=== PATIENT | female | born 1955 | race Caucasian/White ===

== ENCOUNTER 2016-05-24 14:26 | Inpatient (IN) | payer MEDICARE, MEDICAID ==
--- NOTE | 2016-05-24 15:05 | ED Physician Chart ---
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 THE PATIENT IS MENTALLY UNABLE TO COMMUNICATE AND NOT RESPONSIVE TO VERBAL STIMULUS. THIS PATIENT HAS A HISTORY OF SEIZURES, HYPOTHYROIDISM, HYPERTENSION AND COPD. Allergies:: Allergies Allergy/AdvReac Type Severity Reaction Status Date / Time aspirin Allergy Verified 12/14/15 17:05 citalopram Allergy Verified 12/14/15 17:06 codeine Allergy Verified 12/14/15 17:09 dimenhydrinate Allergy Verified 12/14/15 17:09 diphenhydramine HCl Allergy Verified 12/14/15 17:06 [From Benadryl] lorazepam Allergy Verified 12/14/15 17:10 pioglitazone Allergy Verified 12/14/15 17:10 tomato Allergy Verified 12/14/15 17:11 venlafaxine Allergy Verified 12/14/15 17:11 Historian:: EMS, Medical Records Review:: Nurse's Note Reviewed Review of Systems - Review of Systems General/Constitutional: No fever, No chills, No weight loss, No weakness, No diaphoresis, No edema, No loss of appetite, Other (THIS PATIENT CANNOT GIVE A REVIEW OF SYSTEMS) Skin: No skin lesions, No rash, No bruising Head: No headache, No light-headedness Eyes: No loss of vision, No pain, No diplopia ENT: No earache, No nasal drainage, No sore throat, No tinnitus Neck: No neck pain, No swelling, No thyromegaly, No stiffness, No mass noted Cardio Vascular: No chest pain, No palpitations, No PND, No orthopnea, No edema Pulmonary: No SOB, No cough, No sputum, No wheezing GI: No nausea, No vomiting, No diarrhea, No pain, No melena, No hematochezia, No constipation, No hematemesis G/U: No dysuria, No frequency, No hematuria Musculoskeletal: No bone or joint pain, No back pain, No muscle pain Endocrine: No polyuria, No polydipsia Psychiatric: No prior psych history, No depression, No anxiety, No suicidal ideation Hematopoietic: No bruising, No lymphadenopathy Allergic/Immuno: No urticaria, No angioedema Neurological: No syncope, No focal symptoms, No weakness, No paresthesia, No headache, No seizure, No dizziness, No confusion, No vertigo Past Medical History - Past Medical History Obtainable: Yes Past Medical History: HTN, Asthma/COPD, Seizures, Thyroid disorder, Dementia, Other (DEPRESSIVE DISORDER) Family History: None Social History: Non Smoker, No Alcohol, No Drug Use Family Medical History - Family Member Mother History Unknown: Yes Physical Exam - Physical Examination General/Constitutional: Awake, Well-developed, well-nourished, Alert, No distress, GCS 15, Non-toxic appearing, Ambulatory Other Gen/Cons comments:: THE PATIENT CANNOT COMMUNICATE AND IS UNRESPONSIVE TO ANY VERBAL STIMULI. Head: Atraumatic Eyes: Lids, conjuctiva normal, PERRL, EOMI Skin: Nl inspection, No rash, No skin lesions, No ecchymosis, Well hydrated, No lymphadenopathy ENMT: External ears, nose nl, Nasal exam nl, Lips, teeth, gums nl Neck: Nontender, Full ROM w/o pain, No JVD, No nuchal rigidity, No bruit, No mass, No stridor Respiratory: Nl effort/Exclusion, Clear to Auscultation, No Wheeze/Rhonchi/Rales Cardio Vascular: RRR, No murmur, gallop, rubs, NL S1 S2 GI: No tenderness/rebounding/guarding, No organomegaly, No hernia, Normal BS's, Nondistended, No mass/bruits, No McBurney tenderness : No CVA tenderness Extremities: No tenderness or effusion, Full ROM, normal strength in all extremities, No edema, Normal digits & nails Neuro/Psych: Alert/oriented, DTR's symmetric, Normal sensory exam, Normal motor strength, Judgement/insight normal, Mood normal, Normal gait, No focal deficits Misc: normal gait, Normal back, No paraspinal tenderness ED Septic Shock - . Is Septic Shock (SBP<90, OR Lactate>4 mmol\L) present?: No Reassessment (Disposition) - Reassessment Reassessment Condition:: Unchanged - Diagnosis Diagnosis:: UNCONTROLLED SEIZURES STATUS POST FRONTAL LOBE REMOVAL - Patient Disposition Discharge/Transfer:: Acute Care w/in this hosp Admitting Medical Physician:: Burton Alaniz Condition at Disposition:: Unchanged
--- NOTE | 2016-05-24 15:12 | Diagnostic Imaging Report ---
CHEST X-RAY: AP view INDICATION: Dizziness COMPARISON: None FINDINGS: Suboptimal lung volumes are seen with chronic changes. No focal consolidation or pleural effusions. Cardiomegaly is noted. Postsurgical changes of the cervicothoracic spine are noted. Degenerative changes of the spine are noted. IMPRESSION: Suboptimal lung volumes with chronic changes. No focal consolidation identified. Cardiomegaly.
[2016-05-24 15:18] LABS: % BASOPHILS 0.4 % (0.0-2.0); % EOSINOPHILS 0.1 % (0.0-5.0); % LYMPHOCYTES 13.9 % (20.0-50.0); % MONOCYTES 9.5 % (2.0-10.0); % NEUTROPHILS 76.1 % (40.0-80.0); HEMATOCRIT 40.1 % (35.0-45.0); HEMOGLOBIN 13.6 gm/dL (11.7-15.5); MEAN CELL VOLUME 95.8 fl (81-100); MEAN CORPUSCULAR HEMOGLOBIN 32.4 pg (27.0-31.0); MEAN CORPUSCULAR HGB CONC 33.8 pg (28.0-36.0); MEAN PLATELET VOLUME 7.7 fl; NEUTROPHILE ABSOLUTE 6.3 Th/cmm (1.8-8.0); PLATELET COUNT 292 Th/cmm (150-400); RED BLOOD COUNT 4.19 Mil/cmm (3.80-5.10); RED CELL DISTRIBUTION WIDTH 12.9 % (11.5-20.0); WHITE BLOOD COUNT 8.3 Th/cmm (4.8-10.8)
[2016-05-24 15:29] LABS: INR 1.03 (0.5-1.4); PROTHROMBIN TIME (TEST) 10.2 SECONDS (9.5-11.5)
[2016-05-24 15:33] LABS: ALKALINE PHOSPHATASE 119 U/L (34-104); ANION GAP 8.5 (7.0-16.0); BILIRUBIN,TOTAL 0.2 mg/dL (0.3-1.0); BUN - UREA NITROGEN 22 mg/dL (7-25); BUN/CREATININE RATIO 24.4; CALCIUM SERUM 9.3 mg/dL (8.6-10.3); CARBON DIOXIDE 26.7 mEq/L (21.0-31.0); CHLORIDE 104 mEq/L (98-107); CREATININE - SERUM 0.9 mg/dL (0.6-1.2); GLUCOSE 99 mg/dL (70-105); POTASSIUM SERUM 4.2 mEq/L (3.5-5.1); SGOT 18 U/L (13-39); SGPT/ALT 26 U/L (7-52); SODIUM SERUM 135 mEq/L (136-145)
--- NOTE | 2016-05-24 15:49 | Diagnostic Imaging Report ---
Head CT without intravenous contrast Indication: Dizziness Comparison: Prior head CT on 12/15/2015 Technique: Axial images were obtained from the vertex to the skull base without IV contrast. Coronal reconstructions were made. Total DLP: 673, CTDI36.6 FINDINGS: Images of the brain obtained without contrast demonstrate no evidence of an acute hemorrhage. There is evidence of prior right frontal craniotomy. Right frontal lobe encephalomalacia is again noted. 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 Left frontal lobe encephalomalacia is also seen with mild ex vacuo dilatation of the frontal horn of the left lateral ventricle. Nonspecific calcifications are again seen adjacent to the posterior horn of the left lateral ventricle. No mass effect or midline shift. No evidence of a skull fracture or focal soft tissue swelling. IMPRESSION: No evidence of an acute intracranial hemorrhage Redemonstration of postsurgical changes of the right frontal lobe. Bifrontal lobe encephalomalacia is also noted, right greater than left. Unchanged calcifications adjacent to the posterior horn of the left lateral ventricle. If indicated short-term follow-up MRI may also be obtained.
[2016-05-24] MEDS ORDERED: Albuterol Nebulizer 2.5mg/3mL IH PRN (19:33)
[2016-05-24] MEDS ORDERED: guaiFENesin 200 MG/10 ML UDC PO PRN (19:33)
[2016-05-24] MEDS: Atorvastatin Calcium 10 MG TAB PO SCH (22:41)
[2016-05-24] MEDS: D5-0.9%NS 1,000 ML IV SCH (23:13)
[2016-05-25] MEDS: Levothyroxine 0.088 Mg Tab PO SCH (07:12)
[2016-05-25] MEDS: Fish Oil 1,000 MG SGL PO SCH (09:37)
[2016-05-25] MEDS: Calcium Carb/Vit D 500 mg/200 U Tab PO SCH (09:37)
[2016-05-25] MEDS: Multivitamin Tab PO SCH (09:37)
--- NOTE | 2016-05-25 16:59 | Internal Medicine Prog Note ---
Internal Medicine Subjective - Subjective Service Date: 05/25/16 ([facility] dictated [id number] ) Internal Medicine Objective - Results Result Diagrams: 05/24/16 15:05 05/24/16 15:05 Recent Labs: Laboratory Last Values WBC 8.3 Th/cmm (4.8-10.8) 05/24/16 15:05 RBC 4.19 Mil/cmm (3.80-5.10) 05/24/16 15:05 Hgb 13.6 gm/dL (11.7-15.5) 05/24/16 15:05 Hct 40.1 % (35.0-45.0) 05/24/16 15:05 MCV 95.8 fl (81-100) 05/24/16 15:05 MCH 32.4 pg (27.0-31.0) H 05/24/16 15:05 MCHC Differential 33.8 pg (28.0-36.0) 05/24/16 15:05 RDW 12.9 % (11.5-20.0) 05/24/16 15:05 Plt Count 292 Th/cmm (150-400) 05/24/16 15:05 MPV 7.7 fl 05/24/16 15:05 Neutrophils % 76.1 % (40.0-80.0) 05/24/16 15:05 Lymphocytes % 13.9 % (20.0-50.0) L 05/24/16 15:05 Monocytes % 9.5 % (2.0-10.0) 05/24/16 15:05 Eosinophils % 0.1 % (0.0-5.0) 05/24/16 15:05 Basophils % 0.4 % (0.0-2.0) 05/24/16 15:05 PT 10.2 SECONDS (9.5-11.5) 05/24/16 15:05 INR 1.03 (0.5-1.4) 05/24/16 15:05 Sodium 135 mEq/L (136-145) L 05/24/16 15:05 Potassium 4.2 mEq/L (3.5-5.1) 05/24/16 15:05 Chloride 104 mEq/L (98-107) 05/24/16 15:05 Carbon Dioxide 26.7 mEq/L (21.0-31.0) 05/24/16 15:05 Anion Gap 8.5 (7.0-16.0) 05/24/16 15:05 BUN 22 mg/dL (7-25) 05/24/16 15:05 Creatinine 0.9 mg/dL (0.6-1.2) 05/24/16 15:05 Est GFR ( Amer) > 60.0 ml/min 05/24/16 15:05 Est GFR (Non-Af Amer) > 60.0 ml/min 05/24/16 15:05 BUN/Creatinine Ratio 24.4 05/24/16 15:05 Glucose 99 mg/dL (70-105) 05/24/16 15:05 Calcium 9.3 mg/dL (8.6-10.3) 05/24/16 15:05 Total Bilirubin 0.2 mg/dL (0.3-1.0) L 05/24/16 15:05 AST 18 U/L (13-39) 05/24/16 15:05 ALT 26 U/L (7-52) 05/24/16 15:05 Alkaline Phosphatase 119 U/L (34-104) H 05/24/16 15:05 Troponin I < 0.01 ng/mL (0.01-0.05) L 05/24/16 15:05 Total Protein 7.5 gm/dL (6.0-8.3) 05/24/16 15:05 Albumin 3.7 gm/dL (3.7-5.3) 05/24/16 15:05 Globulin 3.8 gm/dL 05/24/16 15:05 Albumin/Globulin Ratio 1.0 (1.0-1.8) 05/24/16 15:05 TSH 0.84 uIU/ml (0.34-5.60) 05/24/16 15:05 Phenytoin 8.5 ug/ml (10.0-20.0) L 05/24/16 15:05 Carbamazepine 9.6 ug/ml (4.0-12.0) 05/24/16 15:05 - Physical Exam Vitals and I&O: Vital Signs Temp 98.2 F 05/25/16 16:00 Pulse 71 05/25/16 16:00 Resp 18 05/25/16 16:00 BP 127/72 05/25/16 16:00 Pulse Ox 97 05/25/16 16:00 Active Medications: Current Medications Acetaminophen (Tylenol) 650 mg PO Q4HR PRN PRN Reason: Pain or Fever >101 Stop: 07/23/16 19:32 Albuterol Sulfate (Albuterol 2.5mg/3ml Neb Ud) 2.5 mg IH Q2HR PRN PRN Reason: Shortness of Breath or Wheeze Stop: 07/23/16 19:32 Atorvastatin Calcium (Lipitor) 20 mg PO HS [facility] Stop: 07/23/16 20:59 Last Admin: 05/24/16 22:41 Dose: 20 mg Calcium/Vitamin D (Oscal W/Vitamin D) 1 tab PO DAILY [facility] Stop: 07/24/16 08:59 Last Admin: 05/25/16 09:37 Dose: 1 tab Carbamazepine (Tegretol) 450 mg PO BID [facility] PRN Reason: Protocol Stop: 07/24/16 08:59 Last Admin: 05/25/16 16:49 Dose: 450 mg Cholecalciferol (Vitamin D3) 1,000 iu PO DAILY [facility] Stop: 07/24/16 08:59 Last Admin: 05/25/16 09:37 Dose: 1,000 iu Donepezil HCl (Aricept) 10 mg PO HS [facility] Stop: 07/23/16 20:59 Last Admin: 05/24/16 22:41 Dose: 10 mg Famotidine (Pepcid) 20 mg PO DAILY [facility] Stop: 07/24/16 08:59 Last Admin: 05/25/16 09:37 Dose: 20 mg Fish Oil ([place] 3) 1,000 mg PO DAILY [facility] Stop: 07/24/16 08:59 Last Admin: 05/25/16 09:37 Dose: 1,000 mg Guaifenesin (Robitussin) 200 mg PO Q4HR PRN PRN Reason: Cough or Congestion Stop: 07/23/16 19:32 Heparin Sodium (Porcine) (Heparin) 5,000 units SUBQ Q12HR [facility] Stop: 07/23/16 20:59 Last Admin: 05/25/16 09:37 Dose: 5,000 units Dextrose/Sodium Chloride (D5-0.9%Ns) 1,000 mls @ 80 mls/hr IV .[id number] [facility] Stop: 07/23/16 19:44 Last Admin: 05/24/16 23:13 Dose: 80 mls/hr Levothyroxine Sodium (Synthroid) 0.088 mg PO QDAC [facility] Stop: 07/24/16 07:29 Last Admin: 05/25/16 07:12 Dose: 0.088 mg Lorazepam (Ativan) 1 mg IV Q4HR PRN; Protocol PRN Reason: Seizure Stop: 07/23/16 19:32 Meclizine HCl (Antivert) 25 mg PO DAILY PRN PRN Reason: Nausea / Vomiting Stop: 07/23/16 19:32 Multivitamins/Vitamin C (Theragran) 1 tab PO DAILY [facility] Stop: 07/24/16 08:59 Last Admin: 05/25/16 09:37 Dose: 1 tab Ondansetron HCl (Zofran) 4 mg IV Q8H PRN PRN Reason: Nausea / Vomiting Stop: 07/23/16 19:32 Phenytoin (Dilantin) 100 mg PO TID [facility] Stop: 07/23/16 20:59 Last Admin: 05/25/16 14:10 Dose: 100 mg Internal Medicine Assmt/Plan - Assessment Assessment: UNCONTROLLED SEIZURES ALOC HTN GERD MAJOR DEPRESSION SCHIZOAFFECTIVE DISORDER
--- NOTE | 2016-05-25 20:58 | History & Physical ---
CHIEF COMPLAINT: Dizziness and ALOC. HISTORY OF PRESENT ILLNESS: This is a 61-year-old female who is a resident of [facility] / [facility] who was brought here to [facility] due to altered mental status. Per nursing staff, the patient was unable to communicate. The patient started to develop dizziness. PAST MEDICAL HISTORY: Hypertension, GERD, arthritis, anemia, major depression, and schizoaffective disorder. FAMILY HISTORY: Noncontributory. SOCIAL HISTORY: The patient resides at a fci, requiring 24-hour nursing care. PAST SURGICAL HISTORY: Unknown. PSYCHIATRIC HISTORY: Schizophrenia and major depressive disorder. REVIEW OF SYSTEMS: Unable to obtain due to the patient's mental status. PHYSICAL EXAMINATION: VITAL SIGNS: Temperature 98.2, heart rate 71, blood pressure 127/72, respirations 18, and O2 of 97%. HEENT: Head is normocephalic and atraumatic. NECK: Supple. No mass. LUNGS: Clear bilaterally upon auscultation. CARDIOVASCULAR: Regular rate and rhythm. No murmurs or gallops. SKIN: Intact, warm to touch. ABDOMEN: Soft, nontender, and nondistended. Positive bowel sounds in all 4 quadrants. LABORATORY DATA: WBC 8.3, H and H 13.6 and 40.1, platelets of 292,000. Sodium 135, potassium 4.2, chloride 104, BUN of 22, and creatinine 0.9. Troponin of 0.01 and phenytoin of 8.5. DIAGNOSIS: The patient had a CT of the head done and the impression is no evidence of any acute intracranial hemorrhage. The patient also had a chest x-ray done and the impression is suboptimal lung volumes with chronic changes, no focal consolidation. ASSESSMENT: Uncontrolled seizures, altered level of consciousness, hypertension, gastroesophageal reflux disease, and major depressive disorder. PLAN: The patient to be admitted to the med/surg unit. Seizure precautions will be initiated. The patient will have a consultation with Dr. Soto. The patient will be kept on IV fluids for hydration. We will continue to monitor the patient. JOB# [id number]
[2016-05-25] MEDS: Atorvastatin Calcium 10 MG TAB PO SCH (21:29)
[2016-05-26] MEDS: D5-0.9%NS 1,000 ML IV SCH ×2 (05:27→21:54)
[2016-05-26] MEDS: Levothyroxine 0.088 Mg Tab PO SCH (06:31)
[2016-05-26 07:23] LABS: % BASOPHILS 0.1 % (0.0-2.0); % EOSINOPHILS 0.2 % (0.0-5.0); % LYMPHOCYTES 22.9 % (20.0-50.0); % MONOCYTES 11.1 % (2.0-10.0); % NEUTROPHILS 65.7 % (40.0-80.0); HEMATOCRIT 37.9 % (35.0-45.0); HEMOGLOBIN 12.8 gm/dL (11.7-15.5); MEAN CELL VOLUME 95.2 fl (81-100); MEAN CORPUSCULAR HEMOGLOBIN 32.2 pg (27.0-31.0); MEAN CORPUSCULAR HGB CONC 33.8 pg (28.0-36.0); MEAN PLATELET VOLUME 8.3 fl; NEUTROPHILE ABSOLUTE 4.7 Th/cmm (1.8-8.0); PLATELET COUNT 265 Th/cmm (150-400); RED BLOOD COUNT 3.98 Mil/cmm (3.80-5.10); RED CELL DISTRIBUTION WIDTH 12.7 % (11.5-20.0); WHITE BLOOD COUNT 7.1 Th/cmm (4.8-10.8)
[2016-05-26 07:48] LABS: ANION GAP 7.8 (7.0-16.0); BUN - UREA NITROGEN 15 mg/dL (7-25); CALCIUM SERUM 9.2 mg/dL (8.6-10.3); CARBON DIOXIDE 27.8 mEq/L (21.0-31.0); CHLORIDE 104 mEq/L (98-107); GLUCOSE 103 mg/dL (70-105); POTASSIUM SERUM 3.6 mEq/L (3.5-5.1); SODIUM SERUM 136 mEq/L (136-145)
[2016-05-26] MEDS: Calcium Carb/Vit D 500 mg/200 U Tab PO SCH (10:07)
[2016-05-26] MEDS: Fish Oil 1,000 MG SGL PO SCH (10:07)
[2016-05-26] MEDS: Multivitamin Tab PO SCH (10:08)
--- NOTE | 2016-05-26 13:33 | Consultation ---
HISTORY OF PRESENT ILLNESS: The patient is a 61-year-old in ____ [facility]. The patient brought in because of dizziness. Somewhat better now. She was also somewhat lethargic. She was awake, but she does not talk much. She will smile. She follows instructions for me. PAST MEDICAL HISTORY: Depression, hypertension, schizoaffective disorder. She has had previous intracranial scarring with postsurgical changes in the right frontal lobe, right and left encephalomalacia, right greater than left. Also, ____ basal ganglia in left frontal lobe. No acute process noted on the CAT scan. The patient moving all extremities though somewhat less on the left. History of seizures, the patient on medications. SOCIAL HISTORY: In a resident facility. Does not smoke or drink. REVIEW OF SYSTEMS: As above, otherwise, 12-point negative. MEDICATIONS: As per reconciliation. PHYSICAL EXAMINATION: VITAL SIGNS: Temperature 98.6, blood pressure 130/76, pulse is 74. NECK: Supple. No bruits. HEART: Sounds S1, S2. LUNGS: Clear. ABDOMEN: Soft. NEUROLOGIC: The patient is awake. She is sitting up eating, limited ____. She will smile. When I asked her name, she does not give it, but she will just smile at me. She followed instructions. When I asked to open and close her eyes and when I asked her to lift her arms up, she did that for me. Pupils react to light. Difficult to ____ field defect, but she will look to the right and left. Moves both arms. I really did not see marked weakness on one side or other. Legs again, she will withdraw both of them. Reflexes about 1+. INVESTIGATIONS: CT scan of head as above with previous scarring. LABORATORY DATA: WBC is 7.1, hemoglobin 12.8, platelets normal. Dilantin level 8.5. Albumin 3.7. Tegretol level 9.6. IMPRESSION: 1. Dizziness. 2. Encephalopathy, better. 3. History of previous intracranial scarring. 4. History of seizure disorder, but no seizures witnessed here. 5. Schizoaffective disorder. 6. Hypertension. 7. Depression. 8. Arthritis. 9. Gastroesophageal reflux disease. JOB# [id number]
--- NOTE | 2016-05-26 16:58 | Internal Medicine Prog Note ---
Internal Medicine Subjective - Subjective Service Date: 05/26/16 Patient seen and examined:: with staff Patient is:: awake Per staff patient is:: no adverse event Internal Medicine Objective - Results Result Diagrams: 05/26/16 06:22 05/26/16 06:22 Recent Labs: Laboratory Last Values WBC 7.1 Th/cmm (4.8-10.8) 05/26/16 06:22 RBC 3.98 Mil/cmm (3.80-5.10) 05/26/16 06:22 Hgb 12.8 gm/dL (11.7-15.5) 05/26/16 06:22 Hct 37.9 % (35.0-45.0) 05/26/16 06:22 MCV 95.2 fl (81-100) 05/26/16 06:22 MCH 32.2 pg (27.0-31.0) H 05/26/16 06:22 MCHC Differential 33.8 pg (28.0-36.0) 05/26/16 06:22 RDW 12.7 % (11.5-20.0) 05/26/16 06:22 Plt Count 265 Th/cmm (150-400) 05/26/16 06:22 MPV 8.3 fl 05/26/16 06:22 Neutrophils % 65.7 % (40.0-80.0) 05/26/16 06:22 Lymphocytes % 22.9 % (20.0-50.0) 05/26/16 06:22 Monocytes % 11.1 % (2.0-10.0) H 05/26/16 06:22 Eosinophils % 0.2 % (0.0-5.0) 05/26/16 06:22 Basophils % 0.1 % (0.0-2.0) 05/26/16 06:22 PT 10.2 SECONDS (9.5-11.5) 05/24/16 15:05 INR 1.03 (0.5-1.4) 05/24/16 15:05 Sodium 136 mEq/L (136-145) 05/26/16 06:22 Potassium 3.6 mEq/L (3.5-5.1) 05/26/16 06:22 Chloride 104 mEq/L (98-107) 05/26/16 06:22 Carbon Dioxide 27.8 mEq/L (21.0-31.0) 05/26/16 06:22 Anion Gap 7.8 (7.0-16.0) 05/26/16 06:22 BUN 15 mg/dL (7-25) 05/26/16 06:22 Creatinine 1.0 mg/dL (0.6-1.2) 05/26/16 06:22 Est GFR ( Amer) > 60.0 ml/min 05/26/16 06:22 Est GFR (Non-Af Amer) 59.9 ml/min 05/26/16 06:22 BUN/Creatinine Ratio 15.0 05/26/16 06:22 Glucose 103 mg/dL (70-105) 05/26/16 06:22 Calcium 9.2 mg/dL (8.6-10.3) 05/26/16 06:22 Total Bilirubin 0.2 mg/dL (0.3-1.0) L 05/24/16 15:05 AST 18 U/L (13-39) 05/24/16 15:05 ALT 26 U/L (7-52) 05/24/16 15:05 Alkaline Phosphatase 119 U/L (34-104) H 05/24/16 15:05 Troponin I < 0.01 ng/mL (0.01-0.05) L 05/24/16 15:05 Total Protein 7.5 gm/dL (6.0-8.3) 05/24/16 15:05 Albumin 3.7 gm/dL (3.7-5.3) 05/24/16 15:05 Globulin 3.8 gm/dL 05/24/16 15:05 Albumin/Globulin Ratio 1.0 (1.0-1.8) 05/24/16 15:05 TSH 0.84 uIU/ml (0.34-5.60) 05/24/16 15:05 Phenytoin 8.5 ug/ml (10.0-20.0) L 05/26/16 06:22 Carbamazepine 9.6 ug/ml (4.0-12.0) 05/24/16 15:05 - Physical Exam Vitals and I&O: Vital Signs Temp 97.9 F 05/26/16 05:00 Pulse 93 05/26/16 08:15 Resp 18 05/26/16 08:15 BP 149/69 05/26/16 05:00 Pulse Ox 97 05/26/16 08:15 Intake & Output 05/25/16 05/26/16 05/26/16 18:59 06:59 18:59 Intake Total 1000 400 Balance 1000 400 Intake: Intake, IV Amount 1000 D5-0.9%Ns 1,000 ml @ 80 1000 mls/hr IV .[id number] [facility] Rx #:[id number] Oral 400 Active Medications: Current Medications Acetaminophen (Tylenol) 650 mg PO Q4HR PRN PRN Reason: Pain or Fever >101 Stop: 07/23/16 19:32 Albuterol Sulfate (Albuterol 2.5mg/3ml Neb Ud) 2.5 mg IH Q2HR PRN PRN Reason: Shortness of Breath or Wheeze Stop: 07/23/16 19:32 Atorvastatin Calcium (Lipitor) 20 mg PO HS [facility] Stop: 07/23/16 20:59 Last Admin: 05/25/16 21:29 Dose: 20 mg Calcium/Vitamin D (Oscal W/Vitamin D) 1 tab PO DAILY [facility] Stop: 07/24/16 08:59 Last Admin: 05/26/16 10:07 Dose: 1 tab Carbamazepine (Tegretol) 450 mg PO BID [facility] PRN Reason: Protocol Stop: 07/24/16 08:59 Last Admin: 05/26/16 10:08 Dose: 450 mg Cholecalciferol (Vitamin D3) 1,000 iu PO DAILY [facility] Stop: 07/24/16 08:59 Last Admin: 05/26/16 10:09 Dose: 1,000 iu Donepezil HCl (Aricept) 10 mg PO HS [facility] Stop: 07/23/16 20:59 Last Admin: 05/25/16 21:29 Dose: 10 mg Famotidine (Pepcid) 20 mg PO DAILY [facility] Stop: 07/24/16 08:59 Last Admin: 05/26/16 10:07 Dose: 20 mg Fish Oil ([place] 3) 1,000 mg PO DAILY [facility] Stop: 07/24/16 08:59 Last Admin: 05/26/16 10:07 Dose: 1,000 mg Guaifenesin (Robitussin) 200 mg PO Q4HR PRN PRN Reason: Cough or Congestion Stop: 07/23/16 19:32 Heparin Sodium (Porcine) (Heparin) 5,000 units SUBQ Q12HR [facility] Stop: 07/23/16 20:59 Last Admin: 05/26/16 10:08 Dose: 5,000 units Dextrose/Sodium Chloride (D5-0.9%Ns) 1,000 mls @ 80 mls/hr IV .[id number] [facility] Stop: 07/23/16 19:44 Last Admin: 05/26/16 05:27 Dose: 80 mls/hr Levothyroxine Sodium (Synthroid) 0.088 mg PO QDAC [facility] Stop: 07/24/16 07:29 Last Admin: 05/26/16 06:31 Dose: 0.088 mg Lorazepam (Ativan) 1 mg IV Q4HR PRN; Protocol PRN Reason: Seizure Stop: 07/23/16 19:32 Meclizine HCl (Antivert) 25 mg PO DAILY PRN PRN Reason: Nausea / Vomiting Stop: 07/23/16 19:32 Multivitamins/Vitamin C (Theragran) 1 tab PO DAILY [facility] Stop: 07/24/16 08:59 Last Admin: 05/26/16 10:08 Dose: 1 tab Ondansetron HCl (Zofran) 4 mg IV Q8H PRN PRN Reason: Nausea / Vomiting Stop: 07/23/16 19:32 Phenytoin (Dilantin) 100 mg PO TID [facility] Stop: 07/23/16 20:59 Last Admin: 05/26/16 14:59 Dose: 100 mg General: alert HEENT: NC/AT, PERRLA Neck: Supple Lungs: CTAB Cardiovascular: RRR, Normal S1, Normal S2, without murmur Abdomen: soft non-tender Internal Medicine Assmt/Plan - Assessment Assessment: UNCONTROLLED SEIZURES ALOC HTN GERD MAJOR DEPRESSION SCHIZOAFFECTIVE DISORDER - Plan Plan: seizure precautions cbc/bmp in am ivf for hydration
[2016-05-26] MEDS: Atorvastatin Calcium 10 MG TAB PO SCH (21:46)
[2016-05-26] MEDS ORDERED: PHENYTOIN IV ONE (23:00)
[2016-05-26] MEDS ORDERED: SODIUM CHLORIDE 0.9% IV ONE (23:00)
[2016-05-27] MEDS ORDERED: Phenytoin 50 mg/mL 2 mL Vial ONE (00:13)
[2016-05-27] MEDS: Levothyroxine 0.088 Mg Tab PO SCH (06:43)
[2016-05-27 07:23] LABS: % BASOPHILS 0.1 % (0.0-2.0); % EOSINOPHILS 0.1 % (0.0-5.0); % LYMPHOCYTES 20.1 % (20.0-50.0); % MONOCYTES 10.1 % (2.0-10.0); % NEUTROPHILS 69.6 % (40.0-80.0); HEMOGLOBIN 12.9 gm/dL (11.7-15.5); MEAN CELL VOLUME 94.9 fl (81-100); MEAN CORPUSCULAR HEMOGLOBIN 32.9 pg (27.0-31.0); MEAN CORPUSCULAR HGB CONC 34.7 pg (28.0-36.0); MEAN PLATELET VOLUME 8.3 fl; NEUTROPHILE ABSOLUTE 5.5 Th/cmm (1.8-8.0); PLATELET COUNT 268 Th/cmm (150-400); RED CELL DISTRIBUTION WIDTH 13.2 % (11.5-20.0); WHITE BLOOD COUNT 7.9 Th/cmm (4.8-10.8)
[2016-05-27 07:34] LABS: ANION GAP 7.3 (7.0-16.0); BUN - UREA NITROGEN 14 mg/dL (7-25); BUN/CREATININE RATIO 15.6; CALCIUM SERUM 9.4 mg/dL (8.6-10.3); CARBON DIOXIDE 28.2 mEq/L (21.0-31.0); CHLORIDE 105 mEq/L (98-107); CREATININE - SERUM 0.9 mg/dL (0.6-1.2); GLUCOSE 92 mg/dL (70-105); POTASSIUM SERUM 3.5 mEq/L (3.5-5.1); SODIUM SERUM 137 mEq/L (136-145)
[2016-05-27] MEDS: Fish Oil 1,000 MG SGL PO SCH (09:08)
[2016-05-27] MEDS: Calcium Carb/Vit D 500 mg/200 U Tab PO SCH (09:08)
[2016-05-27] MEDS: Multivitamin Tab PO SCH (09:08)
--- NOTE | 2016-06-26 02:53 | Discharge Summary ---
Dictated for Dr. Burton Alaniz. FINAL DIAGNOSES: Uncontrolled seizures, altered level of consciousness, hypertension, gastroesophageal reflux disease, and major depressive disorder. HISTORY OF PRESENT ILLNESS: This is a 61-year-old female, a resident of [facility] brought to [facility] due to altered mental status. PHYSICAL EXAMINATION: VITAL SIGNS: Stable. HEENT: Head is normocephalic and atraumatic. NECK: Supple. No mass. LUNGS: Clear. CARDIOVASCULAR: Regular rate and rhythm. No murmurs or gallops. ABDOMEN: Soft, nontender, and nondistended. HOSPITAL COURSE: During the hospital stay, the patient was admitted to the med/surg unit. The patient had a consultation with Dr. Soto. The patient had a CT of the head done and the impression was no evidence of acute intracranial hemorrhage. Also, a chest x-ray was obtained and it was negative. The patient later then stabilized and was stable for discharge. CONDITION UPON DISCHARGE: Fair. DISPOSITION: The patient is going to [facility]. JOB# [id number]
== END 2016-05-27 16:13 | disposition short-term general hospital (02) | DRG 100 ==
LOC: ER 14:26 → MSI 17:00
PROVIDERS: ADMIT Internal Medicine; ATTEND Internal Medicine
DX: R56.9 Unspecified convulsions (principal); G93.40 Encephalopathy, unspecified; I10 Essential (primary) hypertension; K21.9 Gastro-esophageal reflux disease without esophagitis; M19.90 Unspecified osteoarthritis, unspecified site; F32.9 Major depressive disorder, single episode, unspecified; F25.9 Schizoaffective disorder, unspecified; F03.90 Unspecified dementia, unspecified severity, without behavioral disturbance, psychotic disturbance, mood disturbance, and anxiety; J44.9 Chronic obstructive pulmonary disease, unspecified; D64.9 Anemia, unspecified; E03.9 Hypothyroidism, unspecified; Z88.5 Allergy status to narcotic agent; Z88.4 Allergy status to anesthetic agent; Z91.018 Allergy to other foods; Z98.890 Other specified postprocedural states
CPT/HCPCS: 36415-UA; 70450-TC; 71010-TC; 80048-TC; 80053-TC; 80156-TC; 80185-TC; 84443-TC; 84484-TC; 85025-TC; 85610-TC; 93005; 94760; J1165; J1644; J7030; J7042; Z7610

== ENCOUNTER 2016-05-27 16:13 | Inpatient (IN) | payer MEDICARE, MEDICAID ==
[2016-05-27] MEDS ORDERED: Maalox 30 mL Cup PO PRN (20:39)
[2016-05-27] MEDS ORDERED: Magnesium Hydroxide (MOM) 30 mL UDC PO PRN (20:39)
[2016-05-27] MEDS ORDERED: Albuterol Nebulizer 2.5mg/3mL HHN PRN (20:52)
[2016-05-27] MEDS ORDERED: guaiFENesin 200 MG/10 ML UDC PO PRN (21:07)
[2016-05-28 03:33] VITALS: BP 142/78
[2016-05-28] MEDS ORDERED: Levothyroxine 0.088 Mg Tab PO SCH (07:30)
[2016-05-28] MEDS: Multivitamin Tab PO SCH (09:00)
[2016-05-28] MEDS: carBAMazepine 200 mg/10 mL UDC PO SCH ×2 (09:50→16:56)
[2016-05-28] MEDS: Fish Oil 1,000 MG SGL PO SCH (09:50)
[2016-05-28] MEDS: Calcium Carb/Vit D 500 mg/200 U Tab PO SCH (09:50)
--- NOTE | 2016-05-28 19:32 | Internal Medicine Prog Note ---
Internal Medicine Subjective - Subjective Patient seen and examined:: with staff, chart reviewed Patient is:: awake, in bed, denies SOB Patient Complaints of:: congestion Per staff patient is:: no adverse event, noncompliant, confused Internal Medicine Objective - Physical Exam Vitals and I&O: Vital Signs Temp 98 F 05/28/16 15:19 Pulse 83 05/28/16 15:19 Resp 18 05/28/16 18:11 BP 130/70 05/28/16 15:19 Pulse Ox 96 05/28/16 15:19 Intake & Output 05/28/16 05/28/16 05/29/16 06:59 18:59 06:59 Intake Total 800 Balance 800 Intake: Oral 800 Other: # Voids 1 4 # Bowel Movements 0 0 Active Medications: Current Medications Acetaminophen (Tylenol) 650 mg PO Q4HR PRN PRN Reason: pain OR TEMP 100.3 F Stop: 07/26/16 20:38 Al Hydrox/Mg Hydrox/Simethicone (Maalox) 30 ml PO Q4HR PRN PRN Reason: GI DISTRESS Stop: 07/26/16 20:38 Albuterol Sulfate (Albuterol 2.5mg/3ml Neb Ud) 2.5 mg HHN Q2H PRN PRN Reason: Shortness of Breath Stop: 07/26/16 20:51 Atorvastatin Calcium (Lipitor) 20 mg PO HS [facility] PRN Reason: Protocol Stop: 07/27/16 20:59 Calcium/Vitamin D (Oscal W/Vitamin D) 1 tab PO DAILY [facility] Stop: 07/27/16 08:59 Last Admin: 05/28/16 09:50 Dose: 1 tab Carbamazepine (Tegretol) 450 mg PO BID [facility] PRN Reason: Protocol Stop: 07/27/16 08:59 Last Admin: 05/28/16 16:56 Dose: 450 mg Cholecalciferol (Vitamin D3) 1,000 iu PO DAILY [facility] Stop: 07/27/16 08:59 Last Admin: 05/28/16 09:50 Dose: 1,000 iu Donepezil HCl (Aricept) 10 mg PO HS [facility] Stop: 07/27/16 20:59 Famotidine (Pepcid) 20 mg PO DAILY [facility] Stop: 07/27/16 08:59 Last Admin: 05/28/16 09:50 Dose: 20 mg Fish Oil ([place] 3) 1,000 mg PO DAILY [facility] Stop: 07/27/16 08:59 Last Admin: 05/28/16 09:50 Dose: 1,000 mg Guaifenesin (Robitussin) 200 mg PO Q4HR PRN PRN Reason: Cough or Congestion Stop: 07/26/16 21:06 Levothyroxine Sodium (Synthroid) 0.088 mg PO QDAC [facility] Stop: 07/27/16 07:29 Last Admin: 05/28/16 06:39 Dose: 0.088 mg Meclizine HCl (Antivert) 25 mg PO DAILY PRN PRN Reason: nausea and vomiting Stop: 07/26/16 21:02 Multivitamins/Vitamin C (Theragran) 1 tab PO DAILY [facility] Stop: 07/27/16 08:59 Last Admin: 05/28/16 09:00 Dose: 1 tab Phenytoin (Dilantin) 100 mg PO TID [facility] Stop: 07/27/16 08:59 Last Admin: 05/28/16 13:16 Dose: 100 mg Risperidone (Risperdal) 0.5 mg PO HS [facility] PRN Reason: Protocol Stop: 07/27/16 20:59 Zolpidem Tartrate (Ambien) 5 mg PO HS PRN PRN Reason: Insomnia Stop: 07/26/16 21:20 General: lethargic HEENT: NC/AT, PERRLA Neck: Supple, No JVD Lungs: CTAB Cardiovascular: RRR, Normal S1, Normal S2 Abdomen: soft non-tender, globular Extremities: excoriation, contracture Neurological: no change Internal Medicine Assmt/Plan - Assessment Assessment: SEIZURES d\o ALOC HTN GERD MAJOR DEPRESSION SCHIZOAFFECTIVE DISORDER obesity - Plan Plan: cont on sz precaution cont on aeds aspiration precaution cpm dw rn
[2016-05-28] MEDS: Atorvastatin Calcium 10 MG TAB PO SCH (20:59)
--- NOTE | 2016-05-29 01:56 | Psychosocial Evaluation ---
INITIAL PSYCHIATRIC EVALUATION CHIEF COMPLAINT: "I'm fine." HISTORY OF PRESENT ILLNESS: The patient is a 61-year-old female with chronic history of mental illness, has been more confused, disorganized, keeping to herself, at times resisting care, refusing medications. The patient denied feeling depressed. She is not sure of what is going on and she is oblivious to her surrounding. The patient appears to be confused and irritable and appears to be very paranoid. PAST PSYCHIATRIC HISTORY: Multiple psychiatric hospitalizations, history of schizoaffective disorder, and dementia. PAST MEDICAL HISTORY: As per H and P and as per Dr. Alaniz. PSYCHOSOCIAL HISTORY: The patient resides at [facility] as she requires complete care. MENTAL STATUS EXAMINATION: The patient was in bed, made fair eye contact. Her speech is short sentences, minimal. Fund of information is poor. Thought process is fragmented. The patient is internally preoccupied. The patient appears to be paranoid and suspicious. The patient is oriented to person, not oriented to time or place. PATIENT'S STRENGTH: The patient is passively accepting treatment at this time. PATIENT'S WEAKNESS: Lack of insight. ASSESSMENT: Schizoaffective disorder in psychotic phase, dementia, Alzheimer type. Medical, as per H and P. We will admit the patient for hospitalization. We will start the patient in group therapy and assess . ESTIMATED LENGTH OF STAY: 7-10 days. CRITERIA FOR DISCHARGE: Improved condition, less confusion, no agitation, better compliance with treatment and safe disposition, outpatient treatment plan. [facility]# [id number]
[2016-05-29] MEDS: Calcium Carb/Vit D 500 mg/200 U Tab PO SCH (10:20)
[2016-05-29] MEDS: carBAMazepine 200 mg/10 mL UDC PO SCH ×2 (10:21→17:35)
[2016-05-29] MEDS: Multivitamin Tab PO SCH (10:21)
[2016-05-29] MEDS: Fish Oil 1,000 MG SGL PO SCH (10:21)
--- NOTE | 2016-05-29 14:44 | Internal Medicine Prog Note ---
Internal Medicine Subjective - Subjective Service Date: 05/29/16 Patient seen and examined:: with staff Patient is:: awake Per staff patient is:: no adverse event Internal Medicine Objective - Physical Exam Vitals and I&O: Vital Signs Temp 98.0 F 05/29/16 06:26 Pulse 69 05/29/16 06:26 Resp 19 05/29/16 08:00 BP 157/98 05/29/16 06:26 Pulse Ox 98 05/29/16 06:26 Intake & Output 05/28/16 05/29/16 05/29/16 18:59 06:59 18:59 Intake Total 800 240 Balance 800 240 Intake: Oral 800 240 Other: # Voids 4 1 # Bowel Movements 0 Active Medications: Current Medications Acetaminophen (Tylenol) 650 mg PO Q4HR PRN PRN Reason: pain OR TEMP 100.3 F Stop: 07/26/16 20:38 Al Hydrox/Mg Hydrox/Simethicone (Maalox) 30 ml PO Q4HR PRN PRN Reason: GI DISTRESS Stop: 07/26/16 20:38 Albuterol Sulfate (Albuterol 2.5mg/3ml Neb Ud) 2.5 mg HHN Q2H PRN PRN Reason: Shortness of Breath Stop: 07/26/16 20:51 Atorvastatin Calcium (Lipitor) 20 mg PO HS [facility] PRN Reason: Protocol Stop: 07/27/16 20:59 Last Admin: 05/28/16 20:59 Dose: 20 mg Calcium/Vitamin D (Oscal W/Vitamin D) 1 tab PO DAILY [facility] Stop: 07/27/16 08:59 Last Admin: 05/29/16 10:20 Dose: 1 tab Carbamazepine (Tegretol) 450 mg PO BID [facility] PRN Reason: Protocol Stop: 07/27/16 08:59 Last Admin: 05/29/16 10:21 Dose: 450 mg Cholecalciferol (Vitamin D3) 1,000 iu PO DAILY [facility] Stop: 07/27/16 08:59 Last Admin: 05/29/16 10:21 Dose: 1,000 iu Donepezil HCl (Aricept) 10 mg PO HS [facility] Stop: 07/27/16 20:59 Last Admin: 05/28/16 20:59 Dose: 10 mg Famotidine (Pepcid) 20 mg PO DAILY [facility] Stop: 07/27/16 08:59 Last Admin: 05/29/16 10:20 Dose: 20 mg Fish Oil ([place] 3) 1,000 mg PO DAILY [facility] Stop: 07/27/16 08:59 Last Admin: 05/29/16 10:21 Dose: 1,000 mg Guaifenesin (Robitussin) 200 mg PO Q4HR PRN PRN Reason: Cough or Congestion Stop: 07/26/16 21:06 Levothyroxine Sodium (Synthroid) 0.088 mg PO QDAC [facility] Stop: 07/27/16 07:29 Last Admin: 05/28/16 06:39 Dose: 0.088 mg Meclizine HCl (Antivert) 25 mg PO DAILY PRN PRN Reason: nausea and vomiting Stop: 07/26/16 21:02 Multivitamins/Vitamin C (Theragran) 1 tab PO DAILY [facility] Stop: 07/27/16 08:59 Last Admin: 05/29/16 10:21 Dose: 1 tab Phenytoin (Dilantin) 100 mg PO TID [facility] Stop: 07/27/16 08:59 Last Admin: 05/29/16 14:06 Dose: 100 mg Risperidone (Risperdal) 0.5 mg PO HS [facility] PRN Reason: Protocol Stop: 07/27/16 20:59 Last Admin: 05/28/16 20:59 Dose: 0.5 mg Zolpidem Tartrate (Ambien) 5 mg PO HS PRN PRN Reason: Insomnia Stop: 07/26/16 21:20 General: alert HEENT: NC/AT, PERRLA Neck: Supple Lungs: CTAB Cardiovascular: RRR, Normal S1, Normal S2, without murmur Abdomen: soft non-tender Extremities: clear Internal Medicine Assmt/Plan - Assessment Assessment: SEIZURES d\o ALOC HTN GERD MAJOR DEPRESSION SCHIZOAFFECTIVE DISORDER obesity - Plan Plan: seizure precautions fall precautions cpm
[2016-05-29] MEDS ORDERED: Levothyroxine 0.088 Mg Tab PO SCH (19:34)
[2016-05-29] MEDS: Atorvastatin Calcium 10 MG TAB PO SCH (20:53)
--- NOTE | 2016-05-30 02:45 | Progress Notes ---
SUBJECTIVE: The patient was seen. Remains anxious, guarded, still paranoid, still suspicious, and internally preoccupied. Thought process is fragmented. Insight is poor and judgment is impaired. ASSESSMENT: The patient is still in psychotic phase. PLAN: We will continue hospitalization. Continue stabilization. Continue medication management. JOB# [id number]
[2016-05-30] MEDS: Levothyroxine 0.088 Mg Tab PO SCH ×2 (06:49→09:28)
[2016-05-30] MEDS: Fish Oil 1,000 MG SGL PO SCH (09:27)
[2016-05-30] MEDS: Calcium Carb/Vit D 500 mg/200 U Tab PO SCH (09:27)
[2016-05-30] MEDS: carBAMazepine 200 mg/10 mL UDC PO SCH ×2 (09:27→17:21)
[2016-05-30] MEDS: Multivitamin Tab PO SCH (09:27)
--- NOTE | 2016-05-30 16:11 | Internal Medicine Prog Note ---
Internal Medicine Subjective - Subjective Service Date: 05/30/16 Patient seen and examined:: with staff Patient is:: awake Per staff patient is:: no adverse event Internal Medicine Objective - Physical Exam Vitals and I&O: Vital Signs Temp 98.6 F 05/30/16 14:00 Pulse 80 05/30/16 14:00 Resp 20 05/30/16 14:00 BP 131/76 05/30/16 14:00 Pulse Ox 96 05/30/16 14:00 Intake & Output 05/29/16 05/30/16 05/30/16 18:59 06:59 18:59 Intake Total 960 Balance 960 Intake: Oral 960 Other: # Voids 3 # Bowel Movements 1 Active Medications: Current Medications Acetaminophen (Tylenol) 650 mg PO Q4HR PRN PRN Reason: pain OR TEMP 100.3 F Stop: 07/26/16 20:38 Al Hydrox/Mg Hydrox/Simethicone (Maalox) 30 ml PO Q4HR PRN PRN Reason: GI DISTRESS Stop: 07/26/16 20:38 Albuterol Sulfate (Albuterol 2.5mg/3ml Neb Ud) 2.5 mg HHN Q2H PRN PRN Reason: Shortness of Breath Stop: 07/26/16 20:51 Atorvastatin Calcium (Lipitor) 20 mg PO HS [facility] PRN Reason: Protocol Stop: 07/27/16 20:59 Last Admin: 05/29/16 20:53 Dose: 20 mg Calcium/Vitamin D (Oscal W/Vitamin D) 1 tab PO DAILY [facility] Stop: 07/27/16 08:59 Last Admin: 05/30/16 09:27 Dose: 1 tab Carbamazepine (Tegretol) 450 mg PO BID [facility] PRN Reason: Protocol Stop: 07/27/16 08:59 Last Admin: 05/30/16 09:27 Dose: 450 mg Cholecalciferol (Vitamin D3) 1,000 iu PO DAILY [facility] Stop: 07/27/16 08:59 Last Admin: 05/30/16 09:26 Dose: 1,000 iu Donepezil HCl (Aricept) 10 mg PO HS [facility] Stop: 07/27/16 20:59 Last Admin: 05/29/16 20:54 Dose: 10 mg Famotidine (Pepcid) 20 mg PO DAILY [facility] Stop: 07/27/16 08:59 Last Admin: 05/30/16 09:27 Dose: 20 mg Fish Oil ([place] 3) 1,000 mg PO DAILY [facility] Stop: 07/27/16 08:59 Last Admin: 05/30/16 09:27 Dose: 1,000 mg Guaifenesin (Robitussin) 200 mg PO Q4HR PRN PRN Reason: Cough or Congestion Stop: 07/26/16 21:06 Levothyroxine Sodium (Synthroid) 0.088 mg PO QDAC [facility] Stop: 07/30/16 06:29 Meclizine HCl (Antivert) 25 mg PO DAILY PRN PRN Reason: nausea and vomiting Stop: 07/26/16 21:02 Multivitamins/Vitamin C (Theragran) 1 tab PO DAILY [facility] Stop: 07/27/16 08:59 Last Admin: 05/30/16 09:27 Dose: 1 tab Phenytoin (Dilantin) 100 mg PO TID [facility] Stop: 07/27/16 08:59 Last Admin: 05/30/16 15:08 Dose: 100 mg Risperidone (Risperdal) 0.5 mg PO HS [facility] PRN Reason: Protocol Stop: 07/27/16 20:59 Last Admin: 05/29/16 20:54 Dose: 0.5 mg Zolpidem Tartrate (Ambien) 5 mg PO HS PRN PRN Reason: Insomnia Stop: 07/26/16 21:20 General: alert HEENT: NC/AT, PERRLA Neck: Supple Lungs: CTAB Cardiovascular: RRR, Normal S1, Normal S2, without murmur Abdomen: soft non-tender, positive bowel sound Neurological: no change Internal Medicine Assmt/Plan - Assessment Assessment: SEIZURES d\o ALOC HTN GERD MAJOR DEPRESSION SCHIZOAFFECTIVE DISORDER obesity - Plan Plan: seizure precautions fall precautions cpm
[2016-05-30] MEDS: Atorvastatin Calcium 10 MG TAB PO SCH (20:53)
--- NOTE | 2016-05-30 21:15 | Progress Notes ---
SUBJECTIVE: The patient was seen, discussed with staff, and chart reviewed. Still confused, paranoid, still keeping to herself, internally preoccupied, superficial. The patient has been interactive with others. The patient is very forgetful. She is oriented to person, not oriented to time or place. ASSESSMENT: The patient is still in psychotic phase. PLAN: Continue medication management. Continue stabilization. Continue supportive measures. Consider increasing risperidone further more over the next 1-2 days. JOB# [id number]
[2016-05-31] MEDS ORDERED: Levothyroxine 0.088 Mg Tab PO SCH (06:30)
[2016-05-31] MEDS: Levothyroxine 0.088 Mg Tab PO SCH ×2 (06:35→10:38)
[2016-05-31] MEDS: carBAMazepine 200 mg/10 mL UDC PO SCH ×2 (10:37→18:04)
[2016-05-31] MEDS: Calcium Carb/Vit D 500 mg/200 U Tab PO SCH (10:38)
[2016-05-31] MEDS: Fish Oil 1,000 MG SGL PO SCH (10:38)
[2016-05-31] MEDS: Multivitamin Tab PO SCH (10:39)
--- NOTE | 2016-05-31 13:23 | Internal Medicine Prog Note ---
Internal Medicine Subjective - Subjective Service Date: 05/31/16 Patient seen and examined:: with staff Patient is:: awake Per staff patient is:: no adverse event Internal Medicine Objective - Physical Exam Vitals and I&O: Vital Signs Temp 97.2 F 05/31/16 06:45 Pulse 65 05/31/16 06:45 Resp 18 05/31/16 06:45 BP 110/68 05/31/16 06:45 Pulse Ox 97 05/31/16 06:45 Intake & Output 05/30/16 05/31/16 05/31/16 18:59 06:59 18:59 Intake Total 700 120 Balance 700 120 Intake: Oral 700 120 Other: # Voids 3 3 # Bowel Movements 0 Active Medications: Current Medications Acetaminophen (Tylenol) 650 mg PO Q4HR PRN PRN Reason: pain OR TEMP 100.3 F Stop: 07/26/16 20:38 Al Hydrox/Mg Hydrox/Simethicone (Maalox) 30 ml PO Q4HR PRN PRN Reason: GI DISTRESS Stop: 07/26/16 20:38 Albuterol Sulfate (Albuterol 2.5mg/3ml Neb Ud) 2.5 mg HHN Q2H PRN PRN Reason: Shortness of Breath Stop: 07/26/16 20:51 Atorvastatin Calcium (Lipitor) 20 mg PO HS [facility] PRN Reason: Protocol Stop: 07/27/16 20:59 Last Admin: 05/30/16 20:53 Dose: 20 mg Calcium/Vitamin D (Oscal W/Vitamin D) 1 tab PO DAILY [facility] Stop: 07/27/16 08:59 Last Admin: 05/31/16 10:38 Dose: 1 tab Carbamazepine (Tegretol) 450 mg PO BID [facility] PRN Reason: Protocol Stop: 07/27/16 08:59 Last Admin: 05/31/16 10:37 Dose: 450 mg Cholecalciferol (Vitamin D3) 1,000 iu PO DAILY [facility] Stop: 07/27/16 08:59 Last Admin: 05/31/16 10:39 Dose: 1,000 iu Donepezil HCl (Aricept) 10 mg PO HS [facility] Stop: 07/27/16 20:59 Last Admin: 05/30/16 20:53 Dose: 10 mg Famotidine (Pepcid) 20 mg PO DAILY [facility] Stop: 07/27/16 08:59 Last Admin: 05/31/16 10:38 Dose: 20 mg Fish Oil ([place] 3) 1,000 mg PO DAILY [facility] Stop: 07/27/16 08:59 Last Admin: 05/31/16 10:38 Dose: 1,000 mg Guaifenesin (Robitussin) 200 mg PO Q4HR PRN PRN Reason: Cough or Congestion Stop: 07/26/16 21:06 Levothyroxine Sodium (Synthroid) 0.088 mg PO QDAC [facility] Stop: 07/30/16 06:29 Last Admin: 05/31/16 10:38 Dose: Not Given Meclizine HCl (Antivert) 25 mg PO DAILY PRN PRN Reason: nausea and vomiting Stop: 07/26/16 21:02 Multivitamins/Vitamin C (Theragran) 1 tab PO DAILY [facility] Stop: 07/27/16 08:59 Last Admin: 05/31/16 10:39 Dose: 1 tab Phenytoin (Dilantin) 100 mg PO TID [facility] Stop: 07/27/16 08:59 Last Admin: 05/31/16 10:39 Dose: 100 mg Risperidone (Risperdal) 0.5 mg PO HS [facility] PRN Reason: Protocol Stop: 07/27/16 20:59 Last Admin: 05/30/16 20:53 Dose: 0.5 mg Zolpidem Tartrate (Ambien) 5 mg PO HS PRN PRN Reason: Insomnia Stop: 07/26/16 21:20 General: alert HEENT: NC/AT, other Neck: Supple Lungs: CTAB Cardiovascular: RRR, Normal S1, Normal S2, without murmur Abdomen: soft non-tender Extremities: clear Internal Medicine Assmt/Plan - Assessment Assessment: SEIZURES d\o ALOC HTN GERD MAJOR DEPRESSION SCHIZOAFFECTIVE DISORDER obesity - Plan Plan: seizure precautions fall precautions cpm
--- NOTE | 2016-05-31 20:29 | Progress Notes ---
SUBJECTIVE: The patient was seen, discussed with staff, chart reviewed. Still confused, disorganized, internally preoccupied, poor insight to the problems. However, she is taking her medications most of the time. Her appetite is fair. ASSESSMENT: The patient is still in psychotic phase. PLAN: We will continue hospitalization, continue medication management, continue supportive measures, continue current dose of risperidone. JOB# [id number]
[2016-05-31] MEDS: Atorvastatin Calcium 10 MG TAB PO SCH (20:35)
[2016-06-01] MEDS: Levothyroxine 0.088 Mg Tab PO SCH (06:27)
[2016-06-01] MEDS: Multivitamin Tab PO SCH (08:53)
[2016-06-01] MEDS: Calcium Carb/Vit D 500 mg/200 U Tab PO SCH (08:53)
[2016-06-01] MEDS: carBAMazepine 200 mg/10 mL UDC PO SCH ×2 (08:54→17:20)
[2016-06-01] MEDS: Fish Oil 1,000 MG SGL PO SCH (08:54)
--- NOTE | 2016-06-01 11:01 | Internal Medicine Prog Note ---
Internal Medicine Subjective - Subjective Patient seen and examined:: with staff, chart reviewed Patient is:: asleep, arousable, in bed Patient Complaints of:: congestion Per staff patient is:: no adverse event, noncompliant, confused Internal Medicine Objective - Physical Exam Vitals and I&O: Vital Signs Temp 97.6 F 06/01/16 07:07 Pulse 91 06/01/16 08:00 Resp 16 06/01/16 08:00 BP 139/78 06/01/16 07:07 Pulse Ox 96 06/01/16 08:00 Intake & Output 05/31/16 06/01/16 06/01/16 18:59 06:59 18:59 Intake Total 700 Balance 700 Intake: Oral 700 Other: # Voids 3 # Bowel Movements 0 Active Medications: Current Medications Acetaminophen (Tylenol) 650 mg PO Q4HR PRN PRN Reason: pain OR TEMP 100.3 F Stop: 07/26/16 20:38 Al Hydrox/Mg Hydrox/Simethicone (Maalox) 30 ml PO Q4HR PRN PRN Reason: GI DISTRESS Stop: 07/26/16 20:38 Albuterol Sulfate (Albuterol 2.5mg/3ml Neb Ud) 2.5 mg HHN Q2H PRN PRN Reason: Shortness of Breath Stop: 07/26/16 20:51 Atorvastatin Calcium (Lipitor) 20 mg PO HS [facility] PRN Reason: Protocol Stop: 07/27/16 20:59 Last Admin: 05/31/16 20:35 Dose: 20 mg Calcium/Vitamin D (Oscal W/Vitamin D) 1 tab PO DAILY [facility] Stop: 07/27/16 08:59 Last Admin: 06/01/16 08:53 Dose: 1 tab Carbamazepine (Tegretol) 450 mg PO BID [facility] PRN Reason: Protocol Stop: 07/27/16 08:59 Last Admin: 06/01/16 08:54 Dose: 450 mg Cholecalciferol (Vitamin D3) 1,000 iu PO DAILY [facility] Stop: 07/27/16 08:59 Last Admin: 06/01/16 08:53 Dose: 1,000 iu Donepezil HCl (Aricept) 10 mg PO HS [facility] Stop: 07/27/16 20:59 Last Admin: 05/31/16 20:35 Dose: 10 mg Famotidine (Pepcid) 20 mg PO DAILY [facility] Stop: 07/27/16 08:59 Last Admin: 06/01/16 08:53 Dose: 20 mg Fish Oil ([place] 3) 1,000 mg PO DAILY [facility] Stop: 07/27/16 08:59 Last Admin: 06/01/16 08:54 Dose: 1,000 mg Guaifenesin (Robitussin) 200 mg PO Q4HR PRN PRN Reason: Cough or Congestion Stop: 07/26/16 21:06 Levothyroxine Sodium (Synthroid) 0.088 mg PO 0630 [facility] Stop: 07/31/16 06:29 Last Admin: 06/01/16 06:27 Dose: 0.088 mg Meclizine HCl (Antivert) 25 mg PO DAILY PRN PRN Reason: nausea and vomiting Stop: 07/26/16 21:02 Multivitamins/Vitamin C (Theragran) 1 tab PO DAILY [facility] Stop: 07/27/16 08:59 Last Admin: 06/01/16 08:53 Dose: 1 tab Phenytoin (Dilantin) 100 mg PO TID [facility] Stop: 07/27/16 08:59 Last Admin: 06/01/16 08:53 Dose: 100 mg Risperidone (Risperdal) 0.5 mg PO HS [facility] PRN Reason: Protocol Stop: 07/27/16 20:59 Last Admin: 05/31/16 20:35 Dose: 0.5 mg Zolpidem Tartrate (Ambien) 5 mg PO HS PRN PRN Reason: Insomnia Stop: 07/26/16 21:20 General: demented HEENT: NC/AT, PERRLA Neck: Supple, No JVD Lungs: CTAB Cardiovascular: RRR, Normal S1 Abdomen: soft non-tender, globular, positive bowel sound Extremities: excoriation Neurological: no change Internal Medicine Assmt/Plan - Assessment Assessment: SEIZURES d\o ALOC HTN GERD MAJOR DEPRESSION SCHIZOAFFECTIVE DISORDER obesity - Plan Plan: cont on sz precaution cont on aeds aspiration precaution cpm dw rn
[2016-06-01] MEDS: Atorvastatin Calcium 10 MG TAB PO SCH (20:27)
--- NOTE | 2016-06-01 22:50 | Progress Notes ---
SUBJECTIVE: The patient was seen, discussed with staff. Remains superficial, internally preoccupied, minimally interactive ____ reply in ____ 1 or 2 words. The patient is oriented to person, not oriented to time and place. The patient is still internally preoccupied. ASSESSMENT: The patient still in psychotic phase. PLAN: Continue medication management, continue ____ consider increasing risperidone to 1 mg p.o. at bedtime JOB# [id number]
[2016-06-02] MEDS: Levothyroxine 0.088 Mg Tab PO SCH (06:10)
[2016-06-02] MEDS: carBAMazepine 200 mg/10 mL UDC PO SCH ×2 (09:58→17:12)
[2016-06-02] MEDS: Calcium Carb/Vit D 500 mg/200 U Tab PO SCH (09:58)
[2016-06-02] MEDS: Multivitamin Tab PO SCH (09:58)
[2016-06-02] MEDS: Fish Oil 1,000 MG SGL PO SCH (09:58)
--- NOTE | 2016-06-02 12:07 | Internal Medicine Prog Note ---
Internal Medicine Subjective - Subjective Patient seen and examined:: with staff, chart reviewed Patient is:: interactive Per staff patient is:: no adverse event, noncompliant Internal Medicine Objective - Physical Exam Vitals and I&O: Vital Signs Temp 98 F 06/01/16 20:32 Pulse 72 06/02/16 07:00 Resp 16 06/02/16 07:00 BP 126/73 06/01/16 20:32 Pulse Ox 95 06/02/16 07:00 Intake & Output 06/01/16 06/02/16 06/02/16 18:59 06:59 18:59 Intake Total 880 Balance 880 Intake: Oral 880 Other: # Voids 1 # Bowel Movements 0 Active Medications: Current Medications Acetaminophen (Tylenol) 650 mg PO Q4HR PRN PRN Reason: pain OR TEMP 100.3 F Stop: 07/26/16 20:38 Al Hydrox/Mg Hydrox/Simethicone (Maalox) 30 ml PO Q4HR PRN PRN Reason: GI DISTRESS Stop: 07/26/16 20:38 Albuterol Sulfate (Albuterol 2.5mg/3ml Neb Ud) 2.5 mg HHN Q2H PRN PRN Reason: Shortness of Breath Stop: 07/26/16 20:51 Atorvastatin Calcium (Lipitor) 20 mg PO HS [facility] PRN Reason: Protocol Stop: 07/27/16 20:59 Last Admin: 06/01/16 20:27 Dose: 20 mg Calcium/Vitamin D (Oscal W/Vitamin D) 1 tab PO DAILY [facility] Stop: 07/27/16 08:59 Last Admin: 06/02/16 09:58 Dose: 1 tab Carbamazepine (Tegretol) 450 mg PO BID [facility] PRN Reason: Protocol Stop: 07/27/16 08:59 Last Admin: 06/02/16 09:58 Dose: 450 mg Cholecalciferol (Vitamin D3) 1,000 iu PO DAILY [facility] Stop: 07/27/16 08:59 Last Admin: 06/02/16 09:58 Dose: 1,000 iu Donepezil HCl (Aricept) 10 mg PO HS [facility] Stop: 07/27/16 20:59 Last Admin: 06/01/16 20:28 Dose: 10 mg Famotidine (Pepcid) 20 mg PO DAILY [facility] Stop: 07/27/16 08:59 Last Admin: 06/02/16 09:58 Dose: 20 mg Fish Oil ([place] 3) 1,000 mg PO DAILY [facility] Stop: 07/27/16 08:59 Last Admin: 06/02/16 09:58 Dose: 1,000 mg Guaifenesin (Robitussin) 200 mg PO Q4HR PRN PRN Reason: Cough or Congestion Stop: 07/26/16 21:06 Levothyroxine Sodium (Synthroid) 0.088 mg PO 0630 [facility] Stop: 07/31/16 06:29 Last Admin: 06/02/16 06:10 Dose: 0.088 mg Meclizine HCl (Antivert) 25 mg PO DAILY PRN PRN Reason: nausea and vomiting Stop: 07/26/16 21:02 Multivitamins/Vitamin C (Theragran) 1 tab PO DAILY [facility] Stop: 07/27/16 08:59 Last Admin: 06/02/16 09:58 Dose: 1 tab Phenytoin (Dilantin) 100 mg PO TID [facility] Stop: 07/27/16 08:59 Last Admin: 06/02/16 09:58 Dose: 100 mg Risperidone (Risperdal) 0.5 mg PO HS [facility] PRN Reason: Protocol Stop: 07/27/16 20:59 Last Admin: 06/01/16 20:28 Dose: 0.5 mg Zolpidem Tartrate (Ambien) 5 mg PO HS PRN PRN Reason: Insomnia Stop: 07/26/16 21:20 General: demented HEENT: NC/AT, PERRLA Neck: Supple, No JVD Lungs: CTAB Cardiovascular: RRR, Normal S1, Normal S2 Abdomen: soft non-tender, globular Extremities: excoriation, contracture Neurological: no change Internal Medicine Assmt/Plan - Assessment Assessment: SEIZURES d\o ALOC HTN GERD MAJOR DEPRESSION SCHIZOAFFECTIVE DISORDER obesity - Plan Plan: cont on sz precaution cont on aeds aspiration precaution cpm dw rn
[2016-06-02] MEDS: Atorvastatin Calcium 10 MG TAB PO SCH (21:13)
--- NOTE | 2016-06-02 23:05 | Progress Notes ---
SUBJECTIVE: The patient was seen today. Remains superficial, internally preoccupied, appears to be actively hallucinating at times, mumbling to herself, talking to herself. The patient's insight is still poor, judgment remains impaired. ASSESSMENT: The patient is still in psychotic phase. PLAN: Continue monitoring closely. Continue stabilization. Continue current dose of risperidone. JOB# [id number]
[2016-06-03] MEDS: Levothyroxine 0.088 Mg Tab PO SCH (06:16)
[2016-06-03] MEDS: carBAMazepine 200 mg/10 mL UDC PO SCH ×2 (08:52→16:40)
[2016-06-03] MEDS: Fish Oil 1,000 MG SGL PO SCH (08:53)
[2016-06-03] MEDS: Multivitamin Tab PO SCH (08:54)
[2016-06-03] MEDS: Calcium Carb/Vit D 500 mg/200 U Tab PO SCH (08:54)
--- NOTE | 2016-06-03 13:36 | Internal Medicine Prog Note ---
Internal Medicine Subjective - Subjective Service Date: 06/03/16 Patient seen and examined:: with staff Patient is:: awake Per staff patient is:: no adverse event Internal Medicine Objective - Physical Exam Vitals and I&O: Vital Signs Temp 96.8 F 06/03/16 06:28 Pulse 76 06/03/16 08:00 Resp 16 06/03/16 08:00 BP 133/75 06/03/16 06:28 Pulse Ox 96 06/03/16 08:00 Intake & Output 06/02/16 06/03/16 06/03/16 18:59 06:59 18:59 Intake Total 720 240 Balance 720 240 Intake: Oral 720 240 Other: # Voids 4 3 # Bowel Movements 1 0 Active Medications: Current Medications Acetaminophen (Tylenol) 650 mg PO Q4HR PRN PRN Reason: pain OR TEMP 100.3 F Stop: 07/26/16 20:38 Al Hydrox/Mg Hydrox/Simethicone (Maalox) 30 ml PO Q4HR PRN PRN Reason: GI DISTRESS Stop: 07/26/16 20:38 Albuterol Sulfate (Albuterol 2.5mg/3ml Neb Ud) 2.5 mg HHN Q2H PRN PRN Reason: Shortness of Breath Stop: 07/26/16 20:51 Atorvastatin Calcium (Lipitor) 20 mg PO HS [facility] PRN Reason: Protocol Stop: 07/27/16 20:59 Last Admin: 06/02/16 21:13 Dose: 20 mg Calcium/Vitamin D (Oscal W/Vitamin D) 1 tab PO DAILY [facility] Stop: 07/27/16 08:59 Last Admin: 06/03/16 08:54 Dose: 1 tab Carbamazepine (Tegretol) 450 mg PO BID [facility] PRN Reason: Protocol Stop: 07/27/16 08:59 Last Admin: 06/03/16 08:52 Dose: 450 mg Cholecalciferol (Vitamin D3) 1,000 iu PO DAILY [facility] Stop: 07/27/16 08:59 Last Admin: 06/03/16 08:53 Dose: 1,000 iu Donepezil HCl (Aricept) 10 mg PO HS [facility] Stop: 07/27/16 20:59 Last Admin: 06/02/16 21:13 Dose: 10 mg Famotidine (Pepcid) 20 mg PO DAILY [facility] Stop: 07/27/16 08:59 Last Admin: 06/03/16 08:54 Dose: 20 mg Fish Oil ([place] 3) 1,000 mg PO DAILY [facility] Stop: 07/27/16 08:59 Last Admin: 06/03/16 08:53 Dose: 1,000 mg Guaifenesin (Robitussin) 200 mg PO Q4HR PRN PRN Reason: Cough or Congestion Stop: 07/26/16 21:06 Levothyroxine Sodium (Synthroid) 0.088 mg PO 0630 [facility] Stop: 07/31/16 06:29 Last Admin: 06/03/16 06:16 Dose: 0.088 mg Meclizine HCl (Antivert) 25 mg PO DAILY PRN PRN Reason: nausea and vomiting Stop: 07/26/16 21:02 Multivitamins/Vitamin C (Theragran) 1 tab PO DAILY [facility] Stop: 07/27/16 08:59 Last Admin: 06/03/16 08:54 Dose: 1 tab Phenytoin (Dilantin) 100 mg PO TID [facility] Stop: 07/27/16 08:59 Last Admin: 06/03/16 08:54 Dose: 100 mg Risperidone (Risperdal) 1 mg PO HS [facility] PRN Reason: Protocol Stop: 08/02/16 13:25 Zolpidem Tartrate (Ambien) 5 mg PO HS PRN PRN Reason: Insomnia Stop: 07/26/16 21:20 General: alert HEENT: NC/AT, PERRLA Neck: Supple Lungs: CTAB Cardiovascular: RRR, Normal S1, Normal S2, without murmur Abdomen: soft non-tender, non-distended Extremities: clear Internal Medicine Assmt/Plan - Assessment Assessment: SEIZURES d\o ALOC HTN GERD MAJOR DEPRESSION SCHIZOAFFECTIVE DISORDER obesity - Plan Plan: seizure precautions fall precautions cpm
[2016-06-03] MEDS: Atorvastatin Calcium 10 MG TAB PO SCH (20:45)
--- NOTE | 2016-06-04 05:02 | Progress Notes ---
SUBJECTIVE: I met this patient. Remains disorganized, guarded, still internally preoccupied, insight is poor, judgment remains impaired. The patient is oriented to person, not oriented to time or place. The patient on the other hand is taking her medication and she has been more cooperative. The patient is still superficial. ASSESSMENT: The patient continues to lack capacity for his self-care. PLAN: We will continue hospitalization. Continue supportive measure, continue stabilization. We will increase risperidone to 1 mg p.o. at bedtime. [facility]# [id number]
[2016-06-04] MEDS: Levothyroxine 0.088 Mg Tab PO SCH (06:32)
[2016-06-04] MEDS: Fish Oil 1,000 MG SGL PO SCH (08:32)
[2016-06-04] MEDS: Multivitamin Tab PO SCH (08:33)
[2016-06-04] MEDS: Calcium Carb/Vit D 500 mg/200 U Tab PO SCH (08:33)
[2016-06-04] MEDS: carBAMazepine 200 mg/10 mL UDC PO SCH ×2 (08:34→17:28)
--- NOTE | 2016-06-04 14:33 | Internal Medicine Prog Note ---
Internal Medicine Subjective - Subjective Patient seen and examined:: with staff, chart reviewed Patient is:: awake, verbal, interactive Per staff patient is:: no adverse event, noncompliant, confused Internal Medicine Objective - Physical Exam Vitals and I&O: Vital Signs Temp 98.2 F 06/04/16 06:20 Pulse 73 06/04/16 06:20 Resp 20 06/04/16 06:20 BP 124/82 06/04/16 06:20 Pulse Ox 98 06/04/16 06:20 Intake & Output 06/03/16 06/04/16 06/04/16 18:59 06:59 18:59 Intake Total 1800 240 Balance 1800 240 Intake: Oral 1800 240 Other: # Voids 4 3 # Bowel Movements 0 0 Active Medications: Current Medications Acetaminophen (Tylenol) 650 mg PO Q4HR PRN PRN Reason: pain OR TEMP 100.3 F Stop: 07/26/16 20:38 Al Hydrox/Mg Hydrox/Simethicone (Maalox) 30 ml PO Q4HR PRN PRN Reason: GI DISTRESS Stop: 07/26/16 20:38 Albuterol Sulfate (Albuterol 2.5mg/3ml Neb Ud) 2.5 mg HHN Q2H PRN PRN Reason: Shortness of Breath Stop: 07/26/16 20:51 Atorvastatin Calcium (Lipitor) 20 mg PO HS CARLOS PRN Reason: Protocol Stop: 07/27/16 20:59 Last Admin: 06/03/16 20:45 Dose: 20 mg Calcium/Vitamin D (Oscal W/Vitamin D) 1 tab PO DAILY CAR[facility]OS Stop: 07/27/16 08:59 Last Admin: 06/04/16 08:33 Dose: 1 tab Carbamazepine (Tegretol) 450 mg PO BID CARLOS PRN Reason: Protocol Stop: 07/27/16 08:59 Last Admin: 06/04/16 08:34 Dose: 450 mg Cholecalciferol (Vitamin D3) 1,000 iu PO DAILY [facility] Stop: 07/27/16 08:59 Last Admin: 06/04/16 08:32 Dose: 1,000 iu Donepezil HCl (Aricept) 10 mg PO HS CARLOS Stop: 07/27/16 20:59 Last Admin: 06/03/16 20:45 Dose: 10 mg Famotidine (Pepcid) 20 mg PO DAILY [facility] Stop: 07/27/16 08:59 Last Admin: 06/04/16 08:33 Dose: 20 mg Fish Oil ([place] 3) 1,000 mg PO DAILY [facility] Stop: 07/27/16 08:59 Last Admin: 06/04/16 08:32 Dose: 1,000 mg Guaifenesin (Robitussin) 200 mg PO Q4HR PRN PRN Reason: Cough or Congestion Stop: 07/26/16 21:06 Levothyroxine Sodium (Synthroid) 0.088 mg PO 0630 [facility] Stop: 07/31/16 06:29 Last Admin: 06/04/16 06:32 Dose: 0.088 mg Meclizine HCl (Antivert) 25 mg PO DAILY PRN PRN Reason: nausea and vomiting Stop: 07/26/16 21:02 Multivitamins/Vitamin C (Theragran) 1 tab PO DAILY [facility] Stop: 07/27/16 08:59 Last Admin: 06/04/16 08:33 Dose: 1 tab Phenytoin (Dilantin) 100 mg PO TID [facility] Stop: 07/27/16 08:59 Last Admin: 06/04/16 13:57 Dose: 100 mg Risperidone (Risperdal) 1 mg PO HS CARLOS PRN Reason: Protocol Stop: 08/02/16 20:59 Last Admin: 06/03/16 20:45 Dose: 1 mg Zolpidem Tartrate (Ambien) 5 mg PO HS PRN PRN Reason: Insomnia Stop: 07/26/16 21:20 General: demented HEENT: NC/AT, PERRLA Neck: Supple, No JVD Lungs: CTAB Cardiovascular: RRR, Normal S1, Normal S2 Abdomen: soft non-tender, globular, distended Extremities: excoriation, contracture Neurological: no change Internal Medicine Assmt/Plan - Assessment Assessment: SEIZURES d\o ALOC HTN GERD MAJOR DEPRESSION SCHIZOAFFECTIVE DISORDER obesity - Plan Plan: cont on sz precaution cont on aeds aspiration precaution cpm dw rn
[2016-06-04] MEDS: Atorvastatin Calcium 10 MG TAB PO SCH (20:44)
--- NOTE | 2016-06-05 00:38 | Progress Notes ---
SUBJECTIVE: The patient was seen, discussed with staff, chart reviewed. Still disorganized, isolative, still keeping to herself and internally preoccupied. Thought process is fragmented. Insight is poor. The patient is oriented to person, not oriented to time or place. The patient has some episodes of refusing care. ASSESSMENT: The patient still in psychotic phase. PLAN: We will continue stabilization. Risperidone was increased to 1 mg p.o. at bedtime. JOB# [id number]
[2016-06-05] MEDS: Levothyroxine 0.088 Mg Tab PO SCH (06:35)
[2016-06-05] MEDS: Calcium Carb/Vit D 500 mg/200 U Tab PO SCH (09:32)
[2016-06-05] MEDS: Multivitamin Tab PO SCH (09:32)
[2016-06-05] MEDS: Fish Oil 1,000 MG SGL PO SCH (09:32)
[2016-06-05] MEDS: carBAMazepine 200 mg/10 mL UDC PO SCH ×2 (09:37→16:11)
--- NOTE | 2016-06-05 13:18 | Internal Medicine Prog Note ---
Internal Medicine Subjective - Subjective Service Date: 06/05/16 Patient seen and examined:: with staff Patient is:: awake Per staff patient is:: no adverse event Internal Medicine Objective - Physical Exam Vitals and I&O: Vital Signs Temp 97.6 F 06/05/16 06:33 Pulse 74 06/05/16 08:18 Resp 18 06/05/16 08:18 BP 138/73 06/05/16 06:33 Pulse Ox 96 06/05/16 08:18 Intake & Output 06/04/16 06/05/16 06/05/16 18:59 06:59 18:59 Intake Total 1100 0 Balance 1100 0 Intake: Oral 1100 0 Other: # Voids 3 3 # Bowel Movements 1 0 Active Medications: Current Medications Acetaminophen (Tylenol) 650 mg PO Q4HR PRN PRN Reason: pain OR TEMP 100.3 F Stop: 07/26/16 20:38 Al Hydrox/Mg Hydrox/Simethicone (Maalox) 30 ml PO Q4HR PRN PRN Reason: GI DISTRESS Stop: 07/26/16 20:38 Albuterol Sulfate (Albuterol 2.5mg/3ml Neb Ud) 2.5 mg HHN Q2H PRN PRN Reason: Shortness of Breath Stop: 07/26/16 20:51 Atorvastatin Calcium (Lipitor) 20 mg PO HS CARLOS PRN Reason: Protocol Stop: 07/27/16 20:59 Last Admin: 06/04/16 20:44 Dose: 20 mg Calcium/Vitamin D (Oscal W/Vitamin D) 1 tab PO DAILY [facility] Stop: 07/27/16 08:59 Last Admin: 06/05/16 09:32 Dose: 1 tab Carbamazepine (Tegretol) 450 mg PO BID [facility] PRN Reason: Protocol Stop: 07/27/16 08:59 Last Admin: 06/05/16 09:37 Dose: 450 mg Cholecalciferol (Vitamin D3) 1,000 iu PO DAILY [facility] Stop: 07/27/16 08:59 Last Admin: 06/05/16 09:31 Dose: 1,000 iu Donepezil HCl (Aricept) 10 mg PO HS [facility] Stop: 07/27/16 20:59 Last Admin: 06/04/16 20:44 Dose: 10 mg Famotidine (Pepcid) 20 mg PO DAILY [facility] Stop: 07/27/16 08:59 Last Admin: 06/05/16 09:31 Dose: 20 mg Fish Oil ([place] 3) 1,000 mg PO DAILY [facility] Stop: 07/27/16 08:59 Last Admin: 06/05/16 09:32 Dose: 1,000 mg Guaifenesin (Robitussin) 200 mg PO Q4HR PRN PRN Reason: Cough or Congestion Stop: 07/26/16 21:06 Levothyroxine Sodium (Synthroid) 0.088 mg PO 0630 [facility] Stop: 07/31/16 06:29 Last Admin: 06/05/16 06:35 Dose: 0.088 mg Meclizine HCl (Antivert) 25 mg PO DAILY PRN PRN Reason: nausea and vomiting Stop: 07/26/16 21:02 Multivitamins/Vitamin C (Theragran) 1 tab PO DAILY [facility] Stop: 07/27/16 08:59 Last Admin: 06/05/16 09:32 Dose: 1 tab Phenytoin (Dilantin) 100 mg PO TID [facility] Stop: 07/27/16 08:59 Last Admin: 06/05/16 09:31 Dose: 100 mg Risperidone (Risperdal) 1 mg PO HS CARLOS PRN Reason: Protocol Stop: 08/02/16 20:59 Last Admin: 06/04/16 20:44 Dose: 1 mg Zolpidem Tartrate (Ambien) 5 mg PO HS PRN PRN Reason: Insomnia Stop: 07/26/16 21:20 General: alert HEENT: NC/AT Neck: Supple Lungs: CTAB Cardiovascular: RRR, Normal S1, Normal S2, without murmur Abdomen: soft non-tender, non-distended, positive bowel sound Extremities: clear Neurological: no change Internal Medicine Assmt/Plan - Assessment Assessment: SEIZURES d\o ALOC HTN GERD MAJOR DEPRESSION SCHIZOAFFECTIVE DISORDER obesity - Plan Plan: seizure precautions fall precautions cpm
[2016-06-05] MEDS: Atorvastatin Calcium 10 MG TAB PO SCH (20:50)
--- NOTE | 2016-06-06 05:12 | Progress Notes ---
SUBJECTIVE: I met this patient, discussed with staff. Remains superficial in bed, keeping to herself. The patient, however, is taking her medications, does not appear to have any side effects. The patient's insight remains poor, judgment remains impaired. ASSESSMENT: The patient is still in psychotic phase. PLAN: We will continue stabilization. Continue supportive measures, increase risperidone to 1-1/2 mg p.o. at bedtime. Monitor closely. [facility]# [id number]
[2016-06-06] MEDS: Levothyroxine 0.088 Mg Tab PO SCH (06:08)
[2016-06-06] MEDS: Fish Oil 1,000 MG SGL PO SCH (08:39)
[2016-06-06] MEDS: Calcium Carb/Vit D 500 mg/200 U Tab PO SCH (08:39)
[2016-06-06] MEDS: carBAMazepine 200 mg/10 mL UDC PO SCH ×2 (08:39→16:19)
[2016-06-06] MEDS: Multivitamin Tab PO SCH (08:40)
--- NOTE | 2016-06-06 14:47 | Internal Medicine Prog Note ---
Internal Medicine Subjective - Subjective Patient seen and examined:: with staff, chart reviewed Patient is:: verbal, interactive Per staff patient is:: no adverse event, noncompliant, confused Internal Medicine Objective - Physical Exam Vitals and I&O: Vital Signs Temp 97.6 F 06/06/16 06:34 Pulse 73 06/06/16 06:34 Resp 20 06/06/16 06:34 BP 130/70 06/06/16 06:34 Pulse Ox 97 06/06/16 06:34 Intake & Output 06/05/16 06/06/16 06/06/16 18:59 06:59 18:59 Intake Total 1500 Balance 1500 Intake: Oral 1500 Other: # Voids 4 # Bowel Movements 1 Stool Characteristics Formed Active Medications: Current Medications Acetaminophen (Tylenol) 650 mg PO Q4HR PRN PRN Reason: pain OR TEMP 100.3 F Stop: 07/26/16 20:38 Al Hydrox/Mg Hydrox/Simethicone (Maalox) 30 ml PO Q4HR PRN PRN Reason: GI DISTRESS Stop: 07/26/16 20:38 Albuterol Sulfate (Albuterol 2.5mg/3ml Neb Ud) 2.5 mg HHN Q2H PRN PRN Reason: Shortness of Breath Stop: 07/26/16 20:51 Atorvastatin Calcium (Lipitor) 20 mg PO HS CARLOS PRN Reason: Protocol Stop: 07/27/16 20:59 Last Admin: 06/05/16 20:50 Dose: 20 mg Calcium/Vitamin D (Oscal W/Vitamin D) 1 tab PO DAILY [facility] Stop: 07/27/16 08:59 Last Admin: 06/06/16 08:39 Dose: 1 tab Carbamazepine (Tegretol) 450 mg PO BID [facility] PRN Reason: Protocol Stop: 07/27/16 08:59 Last Admin: 06/06/16 08:39 Dose: 450 mg Cholecalciferol (Vitamin D3) 1,000 iu PO DAILY [facility] Stop: 07/27/16 08:59 Last Admin: 06/06/16 08:39 Dose: 1,000 iu Donepezil HCl (Aricept) 10 mg PO HS [facility] Stop: 07/27/16 20:59 Last Admin: 06/05/16 20:50 Dose: 10 mg Famotidine (Pepcid) 20 mg PO DAILY [facility] Stop: 07/27/16 08:59 Last Admin: 06/06/16 08:40 Dose: 20 mg Fish Oil ([place] 3) 1,000 mg PO DAILY [facility] Stop: 07/27/16 08:59 Last Admin: 06/06/16 08:39 Dose: 1,000 mg Guaifenesin (Robitussin) 200 mg PO Q4HR PRN PRN Reason: Cough or Congestion Stop: 07/26/16 21:06 Levothyroxine Sodium (Synthroid) 0.088 mg PO 0630 [facility] Stop: 07/31/16 06:29 Last Admin: 06/06/16 06:08 Dose: 0.088 mg Meclizine HCl (Antivert) 25 mg PO DAILY PRN PRN Reason: nausea and vomiting Stop: 07/26/16 21:02 Multivitamins/Vitamin C (Theragran) 1 tab PO DAILY [facility] Stop: 07/27/16 08:59 Last Admin: 06/06/16 08:40 Dose: 1 tab Phenytoin (Dilantin) 100 mg PO TID [facility] Stop: 07/27/16 08:59 Last Admin: 06/06/16 14:20 Dose: 100 mg Risperidone (Risperdal) 1.5 mg PO HS CARLOS PRN Reason: Protocol Stop: 08/04/16 13:21 Last Admin: 06/05/16 20:51 Dose: 1.5 mg Zolpidem Tartrate (Ambien) 5 mg PO HS PRN PRN Reason: Insomnia Stop: 07/26/16 21:20 General: demented HEENT: NC/AT, PERRLA Neck: Supple, No JVD Lungs: CTAB Cardiovascular: RRR, Normal S1, Normal S2 Abdomen: soft non-tender, globular, distended, positive bowel sound Extremities: excoriation Neurological: no change Internal Medicine Assmt/Plan - Assessment Assessment: SEIZURES d\o ALOC HTN GERD MAJOR DEPRESSION SCHIZOAFFECTIVE DISORDER obesity - Plan Plan: cont on sz precaution cont on aeds aspiration precaution cpm dw rn
[2016-06-06] MEDS: Atorvastatin Calcium 10 MG TAB PO SCH (20:43)
[2016-06-07] MEDS: Levothyroxine 0.088 Mg Tab PO SCH (06:17)
[2016-06-07] MEDS: Calcium Carb/Vit D 500 mg/200 U Tab PO SCH (08:08)
[2016-06-07] MEDS: carBAMazepine 200 mg/10 mL UDC PO SCH (08:08)
[2016-06-07] MEDS: Multivitamin Tab PO SCH (08:08)
[2016-06-07] MEDS: Fish Oil 1,000 MG SGL PO SCH (08:08)
--- NOTE | 2016-06-07 09:10 | Progress Notes ---
SUBJECTIVE: I met this patient, discussed with staff. Remains superficial, internally preoccupied, minimal insight to problems. The patient's appetite is fair. The patient tend to stay in bed and she appears to be ____ and indifferent to her surroundings. ASSESSMENT: The patient is still in psychotic phase. PLAN: We will continue stabilization. Continue medication management. Continue to monitor closely. JOB# [id number]
--- NOTE | 2016-06-07 12:42 | Internal Medicine Prog Note ---
Internal Medicine Subjective - Subjective Service Date: 06/07/16 Patient seen and examined:: with staff Patient is:: awake Per staff patient is:: no adverse event Internal Medicine Objective - Physical Exam Vitals and I&O: Vital Signs Temp 98.1 F 06/07/16 07:31 Pulse 90 06/07/16 08:00 Resp 18 06/07/16 08:00 BP 137/72 06/07/16 07:31 Pulse Ox 97 06/07/16 08:00 Intake & Output 06/06/16 06/07/16 06/07/16 18:59 06:59 18:59 Intake Total 850 Balance 850 Intake: Oral 850 Other: # Voids 2 2 # Bowel Movements 1 Stool Characteristics Formed Active Medications: Current Medications Acetaminophen (Tylenol) 650 mg PO Q4HR PRN PRN Reason: pain OR TEMP 100.3 F Stop: 07/26/16 20:38 Al Hydrox/Mg Hydrox/Simethicone (Maalox) 30 ml PO Q4HR PRN PRN Reason: GI DISTRESS Stop: 07/26/16 20:38 Albuterol Sulfate (Albuterol 2.5mg/3ml Neb Ud) 2.5 mg HHN Q2H PRN PRN Reason: Shortness of Breath Stop: 07/26/16 20:51 Atorvastatin Calcium (Lipitor) 20 mg PO HS CARLOS PRN Reason: Protocol Stop: 07/27/16 20:59 Last Admin: 06/06/16 20:43 Dose: 20 mg Calcium/Vitamin D (Oscal W/Vitamin D) 1 tab PO DAILY [facility] Stop: 07/27/16 08:59 Last Admin: 06/07/16 08:08 Dose: 1 tab Carbamazepine (Tegretol) 450 mg PO BID [facility]OS PRN Reason: Protocol Stop: 07/27/16 08:59 Last Admin: 06/07/16 08:08 Dose: 450 mg Cholecalciferol (Vitamin D3) 1,000 iu PO DAILY [facility] Stop: 07/27/16 08:59 Last Admin: 06/07/16 08:08 Dose: 1,000 iu Donepezil HCl (Aricept) 10 mg PO HS [facility] Stop: 07/27/16 20:59 Last Admin: 06/06/16 20:44 Dose: 10 mg Famotidine (Pepcid) 20 mg PO DAILY [facility] Stop: 07/27/16 08:59 Last Admin: 06/07/16 08:08 Dose: 20 mg Fish Oil ([place] 3) 1,000 mg PO DAILY [facility] Stop: 07/27/16 08:59 Last Admin: 06/07/16 08:08 Dose: 1,000 mg Guaifenesin (Robitussin) 200 mg PO Q4HR PRN PRN Reason: Cough or Congestion Stop: 07/26/16 21:06 Levothyroxine Sodium (Synthroid) 0.088 mg PO 0630 [facility] Stop: 07/31/16 06:29 Last Admin: 06/07/16 06:17 Dose: 0.088 mg Meclizine HCl (Antivert) 25 mg PO DAILY PRN PRN Reason: nausea and vomiting Stop: 07/26/16 21:02 Multivitamins/Vitamin C (Theragran) 1 tab PO DAILY [facility] Stop: 07/27/16 08:59 Last Admin: 06/07/16 08:08 Dose: 1 tab Phenytoin (Dilantin) 100 mg PO TID [facility] Stop: 07/27/16 08:59 Last Admin: 06/07/16 08:08 Dose: 100 mg Risperidone (Risperdal) 1.5 mg PO HS CARLOS PRN Reason: Protocol Stop: 08/04/16 13:21 Last Admin: 06/06/16 20:44 Dose: 1.5 mg Zolpidem Tartrate (Ambien) 5 mg PO HS PRN PRN Reason: Insomnia Stop: 07/26/16 21:20 General: alert HEENT: NC/AT, PERRLA Neck: Supple Lungs: CTAB Cardiovascular: RRR, Normal S1, Normal S2, without murmur Abdomen: soft non-tender, non-distended Extremities: clear Internal Medicine Assmt/Plan - Assessment Assessment: SEIZURES d\o ALOC HTN GERD MAJOR DEPRESSION SCHIZOAFFECTIVE DISORDER obesity - Plan Plan: seizure precautions fall precautions cpm
--- NOTE | 2016-06-08 03:49 | Progress Notes ---
REASON FOR HOSPITALIZATION: Schizoaffective disorder and dementia, Alzheimer's type. HISTORY OF PRESENT ILLNESS: The patient is a 61-year-old female who was admitted to the hospital with increased confusion change in her mental status, refusing care, has become more paranoid. The patient's psychiatric medications were decreased gradually at the [facility] facility in which ____ her decompensation the patient was admitted. HOSPITALIZATION COURSE: Medication were implemented. The patient was compliant with treatment. She was given risperidone, dose increased gradually to 1.5 mg at nighttime. The patient's improvement unfortunately was minimal and slow. The patient throughout her stay in the hospital, did not have any agitation or aggressive behavior, but she refused to get out of bed often. The patient on 06/07/2016 was sent back to her facility, where she was eating well, sleeping well. She was oriented to person, not oriented to time or place. She was not agitated. Did not have any behavior issues. FINAL DIAGNOSES: Schizoaffective disorder and dementia, Alzheimer's type. MEDICAL DIAGNOSES: Hypothyroidism, gastroesophageal reflux disease, chronic obstructive pulmonary disease, seizure disorder. CONDITION ON DISCHARGE: Improved. No agitation. Fair sleep and appetite. Her insight; however, continues to be poor and this patient is forgetful, which is consistent with her dementia diagnosis. Expected course of recovery, the patient with chronic condition. [facility]# [id number]
== END 2016-06-07 16:45 | DRG 885 ==
LOC: GERO 16:13
DX: F25.9 Schizoaffective disorder, unspecified (principal); F02.80 Dementia in other diseases classified elsewhere, unspecified severity, without behavioral disturbance, psychotic disturbance, mood disturbance, and anxiety; G30.9 Alzheimer's disease, unspecified; G40.909 Epilepsy, unspecified, not intractable, without status epilepticus; F32.9 Major depressive disorder, single episode, unspecified; E66.9 Obesity, unspecified; E03.9 Hypothyroidism, unspecified; K21.9 Gastro-esophageal reflux disease without esophagitis; J44.9 Chronic obstructive pulmonary disease, unspecified; Z68.32 Body mass index [BMI] 32.0-32.9, adult
CPT/HCPCS: 90899; 94760; Z7610

== ENCOUNTER 2016-12-30 14:11 | Emergency (ER) | payer MEDICARE, MEDICAID ==
[2016-12-30 15:02] LABS: % BASOPHILS 0.6 % (0.0-2.0); % LYMPHOCYTES 15.7 % (20.0-50.0); % MONOCYTES 9.8 % (2.0-10.0); % NEUTROPHILS 73.9 % (40.0-80.0); HEMOGLOBIN 14.3 gm/dL (11.7-15.5); MEAN CELL VOLUME 96.9 fl (81-100); MEAN CORPUSCULAR HEMOGLOBIN 31.9 pg (27.0-31.0); MEAN CORPUSCULAR HGB CONC 32.9 pg (28.0-36.0); MEAN PLATELET VOLUME 7.3 fl; NEUTROPHILE ABSOLUTE 6.3 Th/cmm (1.8-8.0); RED BLOOD COUNT 4.48 Mil/cmm (3.80-5.10); RED CELL DISTRIBUTION WIDTH 13.2 % (11.5-20.0); WHITE BLOOD COUNT 8.6 Th/cmm (4.8-10.8)
[2016-12-30 15:07] LABS: HEMATOCRIT 43.4 % (35.0-45.0); PLATELET COUNT 344 Th/cmm (150-400)
[2016-12-30 15:16] LABS: INR 0.97 (0.5-1.4); PROTHROMBIN TIME (TEST) 10.1 SECONDS (9.5-11.5)
[2016-12-30 15:21] LABS: ALKALINE PHOSPHATASE 99 U/L (34-104); ANION GAP 8.7 (7.0-16.0); BILIRUBIN,TOTAL 0.2 mg/dL (0.3-1.0); BUN - UREA NITROGEN 17 mg/dL (7-25); BUN/CREATININE RATIO 21.3; CALCIUM SERUM 9.3 mg/dL (8.6-10.3); CARBON DIOXIDE 27.5 mEq/L (21.0-31.0); CHLORIDE 100 mEq/L (98-107); CHOLESTEROL 193 mg/dL (<200); CREATININE - SERUM 0.8 mg/dL (0.6-1.2); GLUCOSE 86 mg/dL (70-105); POTASSIUM SERUM 4.2 mEq/L (3.5-5.1); SGOT 18 U/L (13-39); SGPT/ALT 25 U/L (7-52); SODIUM SERUM 132 mEq/L (136-145); TRIGLYCERIDES 73 mg/dL (<150)
--- NOTE | 2016-12-30 15:23 | ED Physician Chart ---
Chief Complaint/HPI - Patient Information Date Seen:: 12/30/16 Time Seen:: 14:29 Chief Complaint:: WEAKNESS History of Present Illness:: THIS IS A 62 YO FEMALE WAS SENT FROM THE RESIDENTIAL FOR AN EVALUATION OF WEAKNESS. 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 Allergies:: Allergies Allergy/AdvReac Type Severity Reaction Status Date / Time aspirin Allergy Verified 05/24/16 15:02 citalopram Allergy Verified 05/24/16 15:02 codeine Allergy Verified 05/24/16 15:02 dimenhydrinate Allergy Verified 05/24/16 15:02 diphenhydramine HCl Allergy Verified 05/24/16 15:02 [From Benadryl] lorazepam Allergy Verified 05/24/16 15:02 pioglitazone Allergy Verified 05/24/16 15:02 tomato Allergy Verified 05/24/16 15:02 venlafaxine Allergy Verified 05/24/16 15:02 Vitals:: Vital Signs - 8 hr 12/30/16 14:25 Temp 98.7 F HR 86 RR 19 BP 122/76 O2 Sat % 97 Historian:: Medical Records Review:: Nurse's Note Reviewed, Old Chart Reviewed, Transfer documents Reviewed Review of Systems - Review of Systems General/Constitutional: No fever, No chills, No weight loss, No weakness, No diaphoresis, No edema, No loss of appetite, Other (THIS PATIENT IS UNABLE TO GIVE A REVIEW OF SYSTEMS) Skin: No skin lesions, No rash, No bruising Head: No headache, No light-headedness Eyes: No loss of vision, No pain, No diplopia ENT: No earache, No nasal drainage, No sore throat, No tinnitus Neck: No neck pain, No swelling, No thyromegaly, No stiffness, No mass noted Cardio Vascular: No chest pain, No palpitations, No PND, No orthopnea, No edema Pulmonary: No SOB, No cough, No sputum, No wheezing GI: No nausea, No vomiting, No diarrhea, No pain, No melena, No hematochezia, No constipation, No hematemesis G/U: No dysuria, No frequency, No hematuria Musculoskeletal: No bone or joint pain, No back pain, No muscle pain Endocrine: No polyuria, No polydipsia Psychiatric: No prior psych history, No depression, No anxiety, No suicidal ideation Hematopoietic: No bruising, No lymphadenopathy Allergic/Immuno: No urticaria, No angioedema Neurological: No syncope, No focal symptoms, No weakness, No paresthesia, No headache, No seizure, No dizziness, No confusion, No vertigo Past Medical History - Past Medical History Obtainable: Yes Past Medical History: HTN, CHF, CVA/TIA, Dyslipidemia, PUD/GERD, Seizures, Arthritis, Dementia Family History: None Social History: Non Smoker, No Alcohol, No Drug Use, Care Facility Surgical History: None Psychiatricy History: Depression, Schizophrenia, Dementia Family Medical History - Family Member Mother Ethnicity: Non- Living Status: Physical Exam - Physical Examination General/Constitutional: Awake, Well-developed, well-nourished, Alert, No distress, GCS 15, Non-toxic appearing, Ambulatory Other Gen/Cons comments:: THIS PATIENT IS ALERT BUT NOT ORIENTED AND CANNOT COMMUNICATE WITH GENERALIZE WEAKNESS AND CHOREA OF THE UPPER EXTREMITIES. Head: Atraumatic Eyes: Lids, conjuctiva normal, PERRL, EOMI Skin: Nl inspection, No rash, No skin lesions, No ecchymosis, Well hydrated, No lymphadenopathy ENMT: External ears, nose nl, Nasal exam nl, Lips, teeth, gums nl Neck: Nontender, Full ROM w/o pain, No JVD, No nuchal rigidity, No bruit, No mass, No stridor Respiratory: Nl effort/Exclusion, Clear to Auscultation, No Wheeze/Rhonchi/Rales Cardio Vascular: RRR, No murmur, gallop, rubs, NL S1 S2 GI: No tenderness/rebounding/guarding, No organomegaly, No hernia, Normal BS's, Nondistended, No mass/bruits, No McBurney tenderness Other GI comments:: SHE HAS A VERY LARGE VENTRAL HERNIA IN THE ABDOMEN. : No CVA tenderness Extremities: No tenderness or effusion, Full ROM, normal strength in all extremities, No edema, Normal digits & nails Neuro/Psych: Alert/oriented, DTR's symmetric, Normal sensory exam, Normal motor strength, Judgement/insight normal, Mood normal, Normal gait, No focal deficits Misc: normal gait, Normal back, No paraspinal tenderness Labs/Radiology/EKG Results - Lab Results Results: Laboratory Tests 12/30/16 14:56 WBC 8.6 RBC 4.48 Hgb 14.3 Hct 43.4 D MCV 96.9 MCH 31.9 H MCHC Differential 32.9 RDW 13.2 Plt Count 344 D MPV 7.3 Neutrophils % 73.9 Lymphocytes % 15.7 L Monocytes % 9.8 Eosinophils % 0.0 Basophils % 0.6 - Radiology Results Results: CHEST X-RAY = NAD - EKG Interpretations EKG Time:: 16:01 Rate & Rhythm: RATE = 67 SINUS [place]: RIGHT AXIS Assessment - Assessment General Assessment: CHOREA URINARY TRACT INFECTION ED Septic Shock - . Is Septic Shock (SBP<90, OR Lactate>4 mmol\L) present?: No - <6hrs of presentation: Vital Signs: Vital Signs - 8 hr 12/30/16 14:25 Temp 98.7 F HR 86 RR 19 BP 122/76 O2 Sat % 97 Reassessment (Disposition) - Reassessment Reassessment Condition:: Improved - Diagnosis Diagnosis:: CHOREA URINARY TRACT INFECTION - Aftercare/Follow up Instructions Aftercare/Follow-Up Instructions:: Counseled pt regarding lab results/diagnosis & need follow up, Refer to Discharge Instructions, Counseled pt & family regarding lab results/diagnosis & need follow up - Patient Disposition Discharge/Transfer:: Corrective Therapist Care - SNF Condition at Disposition:: Unchanged ED Discharge Plan - Patient Disposition Admit/Discharge/Transfer: Discharge/Transfered to SNF Condition at Disposition: Unchanged Instructions: Urinary Tract Infection Additional Instructions: TAKE ANTIBIOTIC PRESCRIBED, STRICT PERINEAL CARE. INCREASE FLUID INTAKE. OVER THE COUNTER TYLENOL AND MOTRIN FOR FEVER AND PAIN. FOLLOW UP WITH PRIMARY MD NEEDED. RETURN TO THE EMERGENCY ROOM FOR WORSENING SYMPTOMS.
[2016-12-30 16:03] LABS: URINE BILIRUBIN NEGATIVE (NEGATIVE); URINE BLOOD MODERATE (NEGATIVE); URINE GLUCOSE (UA) NEGATIVE (NEGATIVE); URINE KETONE NEGATIVE (NEGATIVE); URINE PH 7.5 (4.6 - 8.0); URINE PROTEIN TRACE mg/dL (NEGATIVE); URINE UROBILINOGEN 0.2 E.U./dL (0.2 - 1.0)
[2016-12-30 16:10] LABS: URINE BACTERIA MANY /hpf (NONE SEEN); URINE COLOR YELLOW; URINE EPITHELIAL CELLS OCCASIONAL /lpf (FEW); URINE WBC 0-2 /hpf (0-5)
--- NOTE | 2016-12-31 09:28 | Diagnostic Imaging Report ---
CT scan of the brain without intravenous contrast HISTORY: Altered Total DLP equals 624 CTDI equals 37.1 Axial sections were obtained from the base of the skull to the vertex. There is prominence/enlargement of the ventricular system size. Associated enlargement of cerebral sulci and subarachnoid cisterns. Findings are consistent with changes of generalized cerebral atrophy. Bifrontal lobe encephalomalacia with No acute parenchymal abnormalities. No acute cerebral hemorrhage. Hypodensity is seen within the supratentorial white matter regions without mass effect. The findings may be associated with chronic small vessel ischemic disease. No extra-axial masses or abnormal fluid collections. There is evidence of prior right frontal craniotomy changes. IMPRESSION: 1. No acute abnormalities. Prior right frontal craniotomy craniectomy changes. 2. Cerebral atrophy, question old small pontine infarct. MRI examination of the helpful. 3. Supratentorial white matter changes that may reflect chronic small vessel ischemic disease.
--- NOTE | 2016-12-31 09:30 | Diagnostic Imaging Report ---
Portable chest x-ray Time: 1617 History: Weakness Allowing for portable technique the heart size is normal. No focal pulmonary parenchymal processes. No hilar or mediastinal abnormalities. Impression: No acute abnormalities.
== END 2016-12-30 19:25 ==
LOC: ER 14:11
DX: N39.0 Urinary tract infection, site not specified (principal); G25.5 Other chorea; I11.0 Hypertensive heart disease with heart failure; I50.9 Heart failure, unspecified; K21.9 Gastro-esophageal reflux disease without esophagitis; Z86.73 Personal history of transient ischemic attack (TIA), and cerebral infarction without residual deficits; Z88.6 Allergy status to analgesic agent; Z88.5 Allergy status to narcotic agent; Z88.8 Allergy status to other drugs, medicaments and biological substances
CPT/HCPCS: 99285; 96372; 93005; 71010; 70450; 84484; 36415; 84443; 86592; 85025; 85610; 85730; 81001; 80053; 80061; J0696

== ENCOUNTER 2017-06-04 15:07 | Inpatient (IN) | payer MEDICARE, MEDICAID ==
--- NOTE | 2017-06-04 15:34 | ED Physician Chart ---
ED Chief Complaint/HPI - Patient Information Date Seen:: 06/04/17 Time Seen:: 15:10 Chief Complaint:: Poor Oral Intake History of Present Illness:: onset x 2 days of poor oral intake, AMS, ALOC, cough, fever, and congestion; no report of trauma, H/As, S/T, neck pain, C/P, SOB, Abd. Pain, A/N/V/D/C, chills, or urinary s/s Allergies:: Allergies Allergy/AdvReac Type Severity Reaction Status Date / Time aspirin Allergy Verified 05/24/16 15:02 citalopram Allergy Verified 05/24/16 15:02 codeine Allergy Verified 05/24/16 15:02 dimenhydrinate Allergy Verified 05/24/16 15:02 diphenhydramine HCl Allergy Verified 05/24/16 15:02 [From Benadryl] lorazepam Allergy Verified 05/24/16 15:02 pioglitazone Allergy Verified 05/24/16 15:02 tomato Allergy Verified 05/24/16 15:02 venlafaxine Allergy Verified 05/24/16 15:02 Vitals:: Vital Signs - 8 hr 06/04/17 15:14 Temp 97 F HR 77 RR 16 BP 121/68 O2 Sat % 97 Historian:: Patient, EMS Review:: Nurse's Note Reviewed, Old Chart Reviewed, EMS run form Reviewed ED Review of Systems - Review of Systems General/Constitutional: Fever, No chills, No weight loss, No weakness, No diaphoresis, No edema, No loss of appetite Skin: No skin lesions, No rash, No bruising Head: No headache, No light-headedness Eyes: No loss of vision, No pain, No diplopia ENT: No earache, Nasal drainage, No sore throat, No tinnitus Neck: No neck pain, No swelling, No thyromegaly, No stiffness, No mass noted Cardio Vascular: No chest pain, No palpitations, No PND, No orthopnea, No edema Pulmonary: SOB, Cough, No sputum, Wheezing GI: No nausea, No vomiting, No diarrhea, No pain, No melena, No hematochezia, No constipation, No hematemesis G/U: No dysuria, No frequency, No hematuria, No nacturia Agile Scrum Coach: No vaginal discharge, No abnormal vaginal bleed, No contraction Musculoskeletal: No bone or joint pain, No back pain, No muscle pain Endocrine: No polyuria, No polydipsia Psychiatric: Prior psych history, Depression, No anxiety, No suicidal ideation, No homicidal ideation, Auditory hallucination, No visual hallucination Hematopoietic: No bruising, No lymphadenopathy Allergic/Immuno: No urticaria, No angioedema Neurological: No syncope, No focal symptoms, No weakness, No paresthesia, No headache, No seizure, No dizziness, Confusion, No vertigo ED Past Medical History - Past Medical History Obtainable: Yes Past Medical History: HTN, Asthma/COPD, Dyslipidemia, PUD/GERD, Arthritis, Dementia Family History: Diabetes Melitus, HTN Social History: Non Smoker, No Alcohol, No Drug Use, Single, Care Facility Surgical History: None Psychiatricy History: Depression, Schizophrenia, Dementia Medication: Reviewed Family Medical History - Family Member Mother History Unknown: Yes Ethnicity: Non- Living Status: ED Physical Exam - Physical Examination General/Constitutional: Awake, Well-developed, well-nourished, Alert, No distress, GCS 15, Non-toxic appearing, Ambulatory Head: Atraumatic Eyes: Lids, conjuctiva normal, PERRL, EOMI Skin: Nl inspection, No rash, No skin lesions, No ecchymosis, No lymphadenopathy Other Skin comments:: Poor turgor with dry MM ENMT: External ears, nose nl, TM canals nl, Nasal exam nl, Lips, teeth, gums nl , Oropharynx nl, Tonsils nl Neck: Nontender, Full ROM w/o pain, No JVD, No nuchal rigidity, No bruit, No mass, No stridor Respiratory: Nl effort/Exclusion Other Respiratory comments:: Lungs: + Rales Cardio Vascular: RRR, No murmur, gallop, rubs, NL S1 S2, Carotid/Femoral/Distal pulses equal bilaterally GI: No tenderness/rebounding/guarding, No organomegaly, No hernia, Normal BS's, Nondistended, No mass/bruits, No McBurney tenderness : No CVA tenderness Extremities: No tenderness or effusion, Full ROM, normal strength in all extremities, No edema, Normal digits & nails Neuro/Psych: DTR's symmetric, Normal sensory exam, Normal motor strength, Judgement/insight normal, Mood normal, Normal gait, No focal deficits Other Neuro/Psych comments:: Disoriented and Confused Misc: Normal back, No paraspinal tenderness ED Labs/Radiology/EKG Results - Lab Results Comments:: Na+: 131 - EKG Interpretations EKG Time:: 15:58 Rate & Rhythm: 75; NSR Comments:: T- Wave Inversions ED Septic Shock - . Is Septic Shock (SBP<90, OR Lactate>4 mmol\L) present?: No - <6hrs of presentation: Vital Signs: Vital Signs - 8 hr 06/04/17 15:14 Temp 97 F HR 77 RR 16 BP 121/68 O2 Sat % 97 ED Reassessment (Disposition) - Reassessment Reassessment Condition:: Improved - Diagnosis Diagnosis:: Dehydration; Hyponatremia; Myocardial Ischemia; Poor Oral Intake; Failure to Thrive - Aftercare/Follow up Instructions Aftercare/Follow-Up Instructions:: Counseled pt regarding lab results/diagnosis & need follow up, Counseled pt & family regarding lab results/diagnosis & need follow up - Patient Disposition Discharge/Transfer:: Acute Care w/in this hosp Accepting Physician:: Dr. Alaniz Time Called:: 1700 Time Responded:: 17:00 Admitted to:: Telemetry Spoke to:: Dr. Alaniz Admitting Medical Physician:: Dr. Alaniz Condition at Disposition:: Stable, Improved
[2017-06-04 16:08] LABS: % BASOPHILS 0.3 % (0.0-2.0); % EOSINOPHILS 0.1 % (0.0-5.0); % LYMPHOCYTES 15.9 % (20.0-50.0); % MONOCYTES 8.9 % (2.0-10.0); % NEUTROPHILS 74.8 % (40.0-80.0); HEMATOCRIT 40.3 % (41.0-60); HEMOGLOBIN 13.6 gm/dL (12-16); LYMPHOCYTE ABSOLUTE 1.4 Th/cmm (1.5-3.0); MEAN CORPUSCULAR HEMOGLOBIN 32.5 pg (27.0-31.0); MEAN CORPUSCULAR HGB CONC 33.8 pg (28.0-36.0); MEAN PLATELET VOLUME 7.3 fl; MONOCYTE ABSOLUTE 0.8 Th/cmm (0.3-1.0); NEUTROPHILE ABSOLUTE 6.3 Th/cmm (1.8-8.0); PLATELET COUNT 364 Th/cmm (150-400); RED CELL DISTRIBUTION WIDTH 13.1 % (11.5-20.0); WHITE BLOOD COUNT 8.5 Th/cmm (4.8-10.8)
[2017-06-04 16:37] LABS: URINE MICROSCOPIC INDICATED? YES; URINE SOURCE CATH
[2017-06-04 16:39] LABS: URINE BILIRUBIN NEGATIVE (NEGATIVE); URINE BLOOD MODERATE (NEGATIVE); URINE GLUCOSE (UA) NEGATIVE (NEGATIVE); URINE KETONE NEGATIVE (NEGATIVE); URINE LEUKOCYTE ESTERASE NEGATIVE (NEGATIVE); URINE NITRATE NEGATIVE (NEGATIVE); URINE PH 6.5 (4.6 - 8.0); URINE PROTEIN NEGATIVE (NEGATIVE); URINE UROBILINOGEN 0.2 E.U./dL (0.2 - 1.0)
[2017-06-04 16:42] LABS: ALB/GLOB RATIO 1.2 (1.0-1.8); ALBUMIN 3.9 gm/dL (3.7-5.3); ALKALINE PHOSPHATASE 122 U/L (34-104); ANION GAP 10.3 (7.0-16.0); BILIRUBIN,TOTAL 0.2 mg/dL (0.3-1.0); BUN - UREA NITROGEN 19 mg/dL (7-25); CALCIUM SERUM 8.8 mg/dL (8.6-10.3); CARBON DIOXIDE 27.4 mEq/L (21.0-31.0); CHLORIDE 97 mEq/L (98-107); CREATININE - SERUM 0.7 mg/dL (0.6-1.2); CREATININE KINASE 23 U/L (30-223); GFR AFRICAN-AMERICAN > 60.0 ml/min (>90); GFR NON AFRICAN-AMERICAN > 60.0 ml/min; GLUCOSE 111 mg/dL (70-105); POTASSIUM SERUM 3.7 mEq/L (3.5-5.1); SGOT 19 U/L (13-39); SGPT/ALT 27 U/L (7-52); SODIUM SERUM 131 mEq/L (136-145); TOTAL PROTEIN,SERUM 7.3 gm/dL (6.0-8.3)
[2017-06-04 16:44] LABS: TROP I 0.01 ng/mL (0.01-0.05)
[2017-06-04 16:57] LABS: INR 0.97 (0.5-1.4); PROTHROMBIN TIME (TEST) 10.1 SECONDS (9.5-11.5)
[2017-06-04 17:03] LABS: URINE CLARITY CLEAR (CLEAR); URINE COLOR YELLOW
[2017-06-04 17:42] LABS: URINE BACTERIA NONE SEEN /hpf (NONE SEEN); URINE EPITHELIAL CELLS NONE SEEN /lpf (FEW); URINE WBC NONE SEEN /hpf (0-5)
[2017-06-04] MEDS ORDERED: Maalox 30 mL Cup PO PRN (19:39)
[2017-06-04] MEDS ORDERED: guaiFENesin 200 MG/10 ML UDC PO PRN (19:39)
[2017-06-04] MEDS: D5-0.9%NS 1,000 ML IV SCH (21:17)
[2017-06-05 00:31] VITALS: BP 141/69
[2017-06-05 05:52] LABS: % BASOPHILS 0.2 % (0.0-2.0); % EOSINOPHILS 0.3 % (0.0-5.0); % LYMPHOCYTES 12.7 % (20.0-50.0); % MONOCYTES 8.7 % (2.0-10.0); % NEUTROPHILS 78.1 % (40.0-80.0); HEMATOCRIT 39.7 % (41.0-60); HEMOGLOBIN 13.3 gm/dL (12-16); MEAN CELL VOLUME 95.8 fl (81-100); MEAN CORPUSCULAR HGB CONC 33.4 pg (28.0-36.0); MEAN PLATELET VOLUME 7.3 fl; MONOCYTE ABSOLUTE 0.7 Th/cmm (0.3-1.0); NEUTROPHILE ABSOLUTE 6.3 Th/cmm (1.8-8.0); PLATELET COUNT 347 Th/cmm (150-400); RED BLOOD COUNT 4.15 Mil/cmm (3.80-5.10); RED CELL DISTRIBUTION WIDTH 13.1 % (11.5-20.0)
[2017-06-05 06:16] LABS: ANION GAP 8.6 (7.0-16.0); BUN - UREA NITROGEN 15 mg/dL (7-25); CALCIUM SERUM 8.5 mg/dL (8.6-10.3); CARBON DIOXIDE 27.8 mEq/L (21.0-31.0); CHLORIDE 101 mEq/L (98-107); CREATININE - SERUM 0.7 mg/dL (0.6-1.2); GFR AFRICAN-AMERICAN > 60.0 ml/min (>90); GFR NON AFRICAN-AMERICAN > 60.0 ml/min; GLUCOSE 112 mg/dL (70-105); POTASSIUM SERUM 3.4 mEq/L (3.5-5.1); SODIUM SERUM 134 mEq/L (136-145)
[2017-06-05] MEDS: Levothyroxine 0.088 Mg Tab PO SCH (06:42)
[2017-06-05] MEDS: Albuterol Nebulizer 2.5mg/3mL HHN SCH ×4 (07:12→19:17)
[2017-06-05] MEDS: Ipratropium Neb 0.5 mg/2.5 mL UD IH SCH ×4 (07:12→19:17)
[2017-06-05] MEDS ORDERED: VTE Chemical Prophylaxis Screen/Admission MC PRN (08:30)
--- NOTE | 2017-06-05 08:30 | Diagnostic Imaging Report ---
Head CT without intravenous contrast Indication: Altered mental status Comparison: Head CT on 12/30/2016, 05/24/2016 and 12/15/2015 Technique: Axial images were obtained from the vertex to the skull base without IV contrast. Coronal reconstructions were made. Total DLP: 599, [id number] FINDINGS: Images of the brain obtained without contrast demonstrate evidence of previous right frontal craniotomy with associated postsurgical changes. There is no evidence of an acute hemorrhage. Bifrontal lobe encephalomalacia is noted right greater than left. Mild white matter disease is noted. There are areas of exvacuodilatation of the frontal horns of the bilateral lateral ventricles. No evidence of acute hemorrhage. No mass effect or midline shift. Unchanged area of 1.5 cm calcification is seen adjacent the posterior horn of the left lateral ventricle. No evidence of a skull fracture or focal soft tissue swelling. The visualized paranasal sinuses are clear. IMPRESSION: Redemonstration of postsurgical changes involving the right frontal lobe. Bifrontal lobe encephalomalacia is again noted, right greater than left. Similar findings were seen on prior exam. No evidence of an acute intracranial hemorrhage. Mild supratentorial white matter disease which is nonspecific and may be due to chronic microvessel ischemia. Atrophy Unchanged chronic calcification of the left posterior horn periventricular region.
--- NOTE | 2017-06-05 08:37 | Diagnostic Imaging Report ---
Portable chest x-ray Time: 1549 hours History: Pain COMPARISON: 12/30/2016 Allowing for portable technique the heart size is normal. No focal pulmonary parenchymal processes. No hilar or mediastinal abnormalities. Impression: No acute abnormalities.
--- NOTE | 2017-06-05 09:24 | Diagnostic Imaging Report ---
CHEST X-RAY: AP view INDICATION: Pneumonia COMPARISON: 06/04/2017 FINDINGS: Mild chronic lung changes are noted. No focal consolidation or effusions. Borderline cardiomegaly is noted. Degenerative changes of the spine are noted. IMPRESSION: No focal airspace consolidation identified.
[2017-06-05] MEDS: Calcium Carb/Vit D 500 mg/200 U Tab PO SCH (09:42)
[2017-06-05] MEDS ORDERED: Potassium Chloride 20 mEq ER Tab PO ONE ×2 (15:13→15:30)
--- NOTE | 2017-06-05 15:16 | Internal Medicine Prog Note ---
Internal Medicine Subjective - Subjective Service Date: 06/05/17 ([facility] [id number]) Internal Medicine Objective - Results Result Diagrams: 06/05/17 05:20 06/05/17 05:20 Recent Labs: Laboratory Last Values WBC 8.0 Th/cmm (4.8-10.8) 06/05/17 05:20 RBC 4.15 Mil/cmm (3.80-5.10) 06/05/17 05:20 Hgb 13.3 gm/dL (12-16) 06/05/17 05:20 Hct 39.7 % (41.0-60) L 06/05/17 05:20 MCV 95.8 fl (81-100) 06/05/17 05:20 MCH 32.0 pg (27.0-31.0) H 06/05/17 05:20 MCHC Differential 33.4 pg (28.0-36.0) 06/05/17 05:20 RDW 13.1 % (11.5-20.0) 06/05/17 05:20 Plt Count 347 Th/cmm (150-400) 06/05/17 05:20 MPV 7.3 fl 06/05/17 05:20 Neutrophils % 78.1 % (40.0-80.0) 06/05/17 05:20 Lymphocytes % 12.7 % (20.0-50.0) L 06/05/17 05:20 Monocytes % 8.7 % (2.0-10.0) 06/05/17 05:20 Eosinophils % 0.3 % (0.0-5.0) 06/05/17 05:20 Basophils % 0.2 % (0.0-2.0) 06/05/17 05:20 PT 10.1 SECONDS (9.5-11.5) 06/04/17 15:59 INR 0.97 (0.5-1.4) 06/04/17 15:59 PTT (Actin FS) 26.6 SECONDS (26.0-38.0) 06/04/17 15:59 Sodium 134 mEq/L (136-145) L 06/05/17 05:20 Potassium 3.4 mEq/L (3.5-5.1) L 06/05/17 05:20 Chloride 101 mEq/L (98-107) 06/05/17 05:20 Carbon Dioxide 27.8 mEq/L (21.0-31.0) 06/05/17 05:20 Anion Gap 8.6 (7.0-16.0) 06/05/17 05:20 BUN 15 mg/dL (7-25) 06/05/17 05:20 Creatinine 0.7 mg/dL (0.6-1.2) 06/05/17 05:20 Est GFR ( Amer) > 60.0 ml/min (>90) 06/05/17 05:20 Est GFR (Non-Af Amer) > 60.0 ml/min 06/05/17 05:20 BUN/Creatinine Ratio 21.4 06/05/17 05:20 Glucose 112 mg/dL (70-105) H 06/05/17 05:20 Whole Bld Lactic Acid 1.23 mmol/L (0.60-1.99) 06/04/17 15:59 Calcium 8.5 mg/dL (8.6-10.3) L 06/05/17 05:20 Total Bilirubin 0.2 mg/dL (0.3-1.0) L 06/04/17 15:59 AST 19 U/L (13-39) 06/04/17 15:59 ALT 27 U/L (7-52) 06/04/17 15:59 Alkaline Phosphatase 122 U/L (34-104) H 06/04/17 15:59 Creatine Kinase 23 U/L (30-223) L 06/04/17 15:59 Troponin I 0.01 ng/mL (0.01-0.05) 06/04/17 15:59 B-Natriuretic Peptide 13.9 pg/mL (5.0-100.0) 06/05/17 05:20 Total Protein 7.3 gm/dL (6.0-8.3) 06/04/17 15:59 Albumin 3.9 gm/dL (3.7-5.3) 06/04/17 15:59 Globulin 3.4 gm/dL 06/04/17 15:59 Albumin/Globulin Ratio 1.2 (1.0-1.8) 06/04/17 15:59 TSH 3.26 uIU/ml (0.34-5.60) 06/05/17 05:20 Urine Source CATH 06/04/17 16:25 Urine Color YELLOW 06/04/17 16:25 Urine Clarity CLEAR (CLEAR) 06/04/17 16:25 Urine pH 6.5 (4.6 - 8.0) 06/04/17 16:25 Ur Specific [place] 1.020 (1.005-1.030) 06/04/17 16:25 Urine Protein NEGATIVE mg/dL (NEGATIVE) 06/04/17 16:25 Urine Glucose (UA) NEGATIVE mg/dL (NEGATIVE) 06/04/17 16:25 Urine Ketones NEGATIVE mg/dL (NEGATIVE) 06/04/17 16:25 Urine Blood MODERATE (NEGATIVE) H 06/04/17 16:25 Urine Nitrate NEGATIVE (NEGATIVE) 06/04/17 16:25 Urine Bilirubin NEGATIVE (NEGATIVE) 06/04/17 16:25 Urine Urobilinogen 0.2 E.U./dL (0.2 - 1.0) 06/04/17 16:25 Ur Leukocyte Esterase NEGATIVE (NEGATIVE) 06/04/17 16:25 Urine RBC 5-10 /hpf (0-5) H 06/04/17 16:25 Urine WBC NONE SEEN /hpf (0-5) 06/04/17 16:25 Ur Epithelial Cells NONE SEEN /lpf (FEW) 06/04/17 16:25 Urine Bacteria NONE SEEN /hpf (NONE SEEN) 06/04/17 16:25 Urine Test NEGATIVE 06/04/17 16:25 - Physical Exam Vitals and I&O: Vital Signs Temp 97 F 06/05/17 08:00 Pulse 74 06/05/17 11:00 Resp 18 06/05/17 11:00 BP 158/78 06/05/17 08:00 Pulse Ox 98 06/05/17 11:00 Intake & Output 06/04/17 06/05/17 06/05/17 18:59 06:59 18:59 Intake Total 150 960 Output Total 0 Balance 150 960 Weight (lbs) 170 lb 170 lb Intake: Oral 150 960 Output: Stool 0 Other: # Voids 3 # Bowel Movements 0 Active Medications: Current Medications Acetaminophen (Tylenol) 650 mg PO Q4H PRN PRN Reason: Pain Or Fever above 101 Stop: 08/03/17 19:38 Al Hydrox/Mg Hydrox/Simethicone (Maalox) 30 ml PO Q6H PRN PRN Reason: Dyspepsia Stop: 08/03/17 19:38 Albuterol Sulfate (Albuterol 2.5mg/3ml Neb Ud) 2.5 mg HHN QIDRT [facility] Stop: 08/04/17 06:59 Last Admin: 06/05/17 11:00 Dose: Not Given Calcium/Vitamin D (Oscal W/Vitamin D) 1 tab PO DAILY [facility] Stop: 08/04/17 08:59 Last Admin: 06/05/17 09:42 Dose: 1 tab Carbamazepine (Tegretol) 450 mg PO BID [facility] PRN Reason: Protocol Stop: 08/04/17 08:59 Last Admin: 06/05/17 09:41 Dose: 450 mg Donepezil HCl (Aricept) 10 mg PO HS [facility] Stop: 08/03/17 20:59 Last Admin: 06/04/17 21:16 Dose: 10 mg Famotidine (Pepcid) 20 mg PO DAILY [facility] Stop: 08/04/17 08:59 Last Admin: 06/05/17 09:42 Dose: 20 mg Guaifenesin (Robitussin) 200 mg PO Q4HR PRN PRN Reason: Cough or Congestion Stop: 08/03/17 19:38 Heparin Sodium (Porcine) (Heparin) 5,000 units SUBQ Q12HR [facility] Stop: 08/03/17 20:59 Last Admin: 06/05/17 09:42 Dose: 5,000 units Dextrose/Sodium Chloride (D5-0.9%Ns) 1,000 mls @ 80 mls/hr IV .[id number] [facility] Stop: 08/03/17 19:44 Last Admin: 06/04/17 21:17 Dose: 80 mls/hr Ipratropium [place] (Atrovent Neb 0.5mg/2.5ml) 0.5 mg IH QIDRT [facility] Stop: 08/04/17 06:59 Last Admin: 06/05/17 07:12 Dose: 0.5 mg Levothyroxine Sodium (Synthroid) 0.088 mg PO QDAC [facility] Stop: 08/04/17 07:29 Last Admin: 06/05/17 06:42 Dose: 0.088 mg Miscellaneous (Vte Chemical Prophylaxis Screen/ Admission) 1 ea PRN PRN PRN Reason: PROTOCOL Stop: 08/04/17 08:29 Ondansetron HCl (Zofran) 4 mg IV Q8H PRN PRN Reason: Nausea / Vomiting Stop: 08/03/17 19:38 Phenytoin (Dilantin) 100 mg PO TID [facility] Stop: 08/03/17 20:59 Last Admin: 06/05/17 13:24 Dose: 100 mg Potassium Chloride (Klor-Con) 20 meq PO X1 ONE Stop: 06/05/17 15:14 Risperidone (Risperdal) 1 mg PO HS [facility] PRN Reason: Protocol Stop: 08/03/17 20:59 Last Admin: 06/04/17 21:16 Dose: 1 mg
[2017-06-05] MEDS ORDERED: Levofloxacin 500mg/100mL 500 MG/100 ML BAG IV SCH (15:30)
[2017-06-05] MEDS ORDERED: Levofloxacin 500mg/100mL Premix Bag IV ONE (16:00)
--- NOTE | 2017-06-05 19:50 | History & Physical ---
ADMIT DATE: 06/05/[address] Burton Alaniz. CHIEF COMPLAINT: Coughing congestion. HISTORY OF PRESENT ILLNESS: This is a 62-year-old female who is well known to me. The patient is a group home resident of [facility]. I was called on this patient yesterday due to patient having bilateral wheezes associated with shortness of breath and congestion. Due to patient's symptoms, the patient is now admitted to the med/surg unit. PAST MEDICAL HISTORY: Hypertension, GERD, arthritis, anemia, major depression and schizoaffective disorder. FAMILY HISTORY: Noncontributory. SOCIAL HISTORY: The patient is a group home resident, requiring 24-hour nursing care. SURGICAL HISTORY: None. PSYCHIATRIC HISTORY: Schizophrenia and depression. REVIEW OF SYSTEMS: Unable to obtain, patient is confused. PHYSICAL EXAMINATION: GENERAL: This is an elderly female, awake, alert with some confusion in no apparent distress. VITAL SIGNS: Temperature 97, heart rate 98, blood pressure 150/78, respirations 18, O2 100%. HEENT: Head, normocephalic, atraumatic. NECK: Supple. No mass. LUNGS: Scattered wheezes bilaterally. HEART: Regular rate and rhythm. ABDOMEN: Soft and nontender. LABORATORY DATA: WBC 8.0, H and H 13.3 and 39.7, platelet of 347. Sodium 134, potassium 3.4, BUN 15, and creatinine 0.7. DIAGNOSTICS: The patient had a chest x-ray done and the impression is no acute abnormalities. The patient had a CT of the head done as well. Impression is redemonstration postsurgical changes involving the right frontal lobe, bifrontal lobe encephalomalacia I guess again right greater than left, small findings are seen on the prior exam. No evidence of acute intracranial hemorrhage. Repeat chest x-ray was also done for this morning and the impression is no focal airspace consolidation identified. ASSESSMENT: Failure to thrive, acute dehydration, acute bronchitis, hypertension, anemia, schizoaffective disorder, hypokalemia, hyponatremia, acute urinary tract infection. PLAN: The patient to be admitted to the med-surg unit. We will keep the patient on IV fluids for hydration, empiric IV antibiotics of Levaquin. We will get the patient's urine culture. We will have some inhalation treatments. We will continue to follow up this patient. [facility]# [id number]
[2017-06-06 06:49] LABS: % BASOPHILS 0.3 % (0.0-2.0); % EOSINOPHILS 0.1 % (0.0-5.0); % LYMPHOCYTES 12.6 % (20.0-50.0); % MONOCYTES 9.8 % (2.0-10.0); % NEUTROPHILS 77.2 % (40.0-80.0); HEMOGLOBIN 12.8 gm/dL (12-16); LYMPHOCYTE ABSOLUTE 1.1 Th/cmm (1.5-3.0); MEAN CELL VOLUME 95.1 fl (81-100); MEAN CORPUSCULAR HEMOGLOBIN 32.9 pg (27.0-31.0); MEAN CORPUSCULAR HGB CONC 34.6 pg (28.0-36.0); MEAN PLATELET VOLUME 7.4 fl; MONOCYTE ABSOLUTE 0.9 Th/cmm (0.3-1.0); NEUTROPHILE ABSOLUTE 6.7 Th/cmm (1.8-8.0); PLATELET COUNT 302 Th/cmm (150-400); RED CELL DISTRIBUTION WIDTH 13.2 % (11.5-20.0); WHITE BLOOD COUNT 8.7 Th/cmm (4.8-10.8)
[2017-06-06] MEDS: Levothyroxine 0.088 Mg Tab PO SCH (06:57)
[2017-06-06 07:11] LABS: ANION GAP 10.2 (7.0-16.0); BUN - UREA NITROGEN 16 mg/dL (7-25); CALCIUM SERUM 8.4 mg/dL (8.6-10.3); CARBON DIOXIDE 25.7 mEq/L (21.0-31.0); CHLORIDE 101 mEq/L (98-107); CREATININE - SERUM 0.8 mg/dL (0.6-1.2); GFR AFRICAN-AMERICAN > 60.0 ml/min (>90); GFR NON AFRICAN-AMERICAN > 60.0 ml/min; GLUCOSE 101 mg/dL (70-105); POTASSIUM SERUM 3.9 mEq/L (3.5-5.1); SODIUM SERUM 133 mEq/L (136-145)
[2017-06-06] MEDS: Ipratropium Neb 0.5 mg/2.5 mL UD IH SCH ×4 (07:16→18:50)
[2017-06-06] MEDS: Albuterol Nebulizer 2.5mg/3mL HHN SCH ×4 (07:16→18:50)
[2017-06-06] MEDS: D5-0.9%NS 1,000 ML IV SCH (07:57)
[2017-06-06] MEDS: Calcium Carb/Vit D 500 mg/200 U Tab PO SCH (10:27)
--- NOTE | 2017-06-06 13:01 | Internal Medicine Prog Note ---
Internal Medicine Subjective - Subjective Service Date: 06/06/17 Patient seen and examined:: with staff Patient is:: awake, verbal Per staff patient has:: tolerating meds Internal Medicine Objective - Results Result Diagrams: 06/06/17 06:00 06/06/17 06:00 Recent Labs: Laboratory Last Values WBC 8.7 Th/cmm (4.8-10.8) 06/06/17 06:00 RBC 3.90 Mil/cmm (3.80-5.10) 06/06/17 06:00 Hgb 12.8 gm/dL (12-16) 06/06/17 06:00 Hct 37.0 % (41.0-60) L 06/06/17 06:00 MCV 95.1 fl (81-100) 06/06/17 06:00 MCH 32.9 pg (27.0-31.0) H 06/06/17 06:00 MCHC Differential 34.6 pg (28.0-36.0) 06/06/17 06:00 RDW 13.2 % (11.5-20.0) 06/06/17 06:00 Plt Count 302 Th/cmm (150-400) 06/06/17 06:00 MPV 7.4 fl 06/06/17 06:00 Neutrophils % 77.2 % (40.0-80.0) 06/06/17 06:00 Lymphocytes % 12.6 % (20.0-50.0) L 06/06/17 06:00 Monocytes % 9.8 % (2.0-10.0) 06/06/17 06:00 Eosinophils % 0.1 % (0.0-5.0) 06/06/17 06:00 Basophils % 0.3 % (0.0-2.0) 06/06/17 06:00 PT 10.1 SECONDS (9.5-11.5) 06/04/17 15:59 INR 0.97 (0.5-1.4) 06/04/17 15:59 PTT (Actin FS) 26.6 SECONDS (26.0-38.0) 06/04/17 15:59 Sodium 133 mEq/L (136-145) L 06/06/17 06:00 Potassium 3.9 mEq/L (3.5-5.1) 06/06/17 06:00 Chloride 101 mEq/L (98-107) 06/06/17 06:00 Carbon Dioxide 25.7 mEq/L (21.0-31.0) 06/06/17 06:00 Anion Gap 10.2 (7.0-16.0) 06/06/17 06:00 BUN 16 mg/dL (7-25) 06/06/17 06:00 Creatinine 0.8 mg/dL (0.6-1.2) 06/06/17 06:00 Est GFR ( Amer) > 60.0 ml/min (>90) 06/06/17 06:00 Est GFR (Non-Af Amer) > 60.0 ml/min 06/06/17 06:00 BUN/Creatinine Ratio 20.0 06/06/17 06:00 Glucose 101 mg/dL (70-105) 06/06/17 06:00 Whole Bld Lactic Acid 1.23 mmol/L (0.60-1.99) 06/04/17 15:59 Calcium 8.4 mg/dL (8.6-10.3) L 06/06/17 06:00 Total Bilirubin 0.2 mg/dL (0.3-1.0) L 06/04/17 15:59 AST 19 U/L (13-39) 06/04/17 15:59 ALT 27 U/L (7-52) 06/04/17 15:59 Alkaline Phosphatase 122 U/L (34-104) H 06/04/17 15:59 Creatine Kinase 23 U/L (30-223) L 06/04/17 15:59 Troponin I 0.01 ng/mL (0.01-0.05) 06/04/17 15:59 B-Natriuretic Peptide 13.9 pg/mL (5.0-100.0) 06/05/17 05:20 Total Protein 7.3 gm/dL (6.0-8.3) 06/04/17 15:59 Albumin 3.9 gm/dL (3.7-5.3) 06/04/17 15:59 Globulin 3.4 gm/dL 06/04/17 15:59 Albumin/Globulin Ratio 1.2 (1.0-1.8) 06/04/17 15:59 TSH 3.26 uIU/ml (0.34-5.60) 06/05/17 05:20 Urine Source CATH 06/04/17 16:25 Urine Color YELLOW 06/04/17 16:25 Urine Clarity CLEAR (CLEAR) 06/04/17 16:25 Urine pH 6.5 (4.6 - 8.0) 06/04/17 16:25 Ur Specific [place] 1.020 (1.005-1.030) 06/04/17 16:25 Urine Protein NEGATIVE mg/dL (NEGATIVE) 06/04/17 16:25 Urine Glucose (UA) NEGATIVE mg/dL (NEGATIVE) 06/04/17 16:25 Urine Ketones NEGATIVE mg/dL (NEGATIVE) 06/04/17 16:25 Urine Blood MODERATE (NEGATIVE) H 06/04/17 16:25 Urine Nitrate NEGATIVE (NEGATIVE) 06/04/17 16:25 Urine Bilirubin NEGATIVE (NEGATIVE) 06/04/17 16:25 Urine Urobilinogen 0.2 E.U./dL (0.2 - 1.0) 06/04/17 16:25 Ur Leukocyte Esterase NEGATIVE (NEGATIVE) 06/04/17 16:25 Urine RBC 5-10 /hpf (0-5) H 06/04/17 16:25 Urine WBC NONE SEEN /hpf (0-5) 06/04/17 16:25 Ur Epithelial Cells NONE SEEN /lpf (FEW) 06/04/17 16:25 Urine Bacteria NONE SEEN /hpf (NONE SEEN) 06/04/17 16:25 Urine Test NEGATIVE 06/04/17 16:25 - Physical Exam Vitals and I&O: Vital Signs Temp 98.2 F 06/06/17 11:45 Pulse 84 06/06/17 11:47 Resp 18 06/06/17 11:47 BP 125/69 06/06/17 11:45 Pulse Ox 96 06/06/17 11:47 Intake & Output 06/05/17 06/06/17 06/06/17 18:59 06:59 18:59 Intake Total 1960 300 Balance 1960 300 Weight (lbs) 170 lb 170 lb Intake: Intake, IV Amount 1000 D5-0.9%Ns 1,000 ml @ 80 1000 mls/hr IV .[id number] [facility] Rx #:[id number] Oral 960 300 Other: # Voids 3 # Bowel Movements 1 Active Medications: Current Medications Acetaminophen (Tylenol) 650 mg PO Q4H PRN PRN Reason: Pain Or Fever above 101 Stop: 08/03/17 19:38 Last Admin: 06/05/17 21:02 Dose: 650 mg Al Hydrox/Mg Hydrox/Simethicone (Maalox) 30 ml PO Q6H PRN PRN Reason: Dyspepsia Stop: 08/03/17 19:38 Albuterol Sulfate (Albuterol 2.5mg/3ml Neb Ud) 2.5 mg HHN QIDRT [facility] Stop: 08/04/17 06:59 Last Admin: 06/06/17 11:46 Dose: 2.5 mg Calcium/Vitamin D (Oscal W/Vitamin D) 1 tab PO DAILY [facility] Stop: 08/04/17 08:59 Last Admin: 06/06/17 10:27 Dose: 1 tab Carbamazepine (Tegretol) 450 mg PO BID [facility] PRN Reason: Protocol Stop: 08/04/17 08:59 Last Admin: 06/06/17 10:28 Dose: 450 mg Donepezil HCl (Aricept) 10 mg PO HS [facility] Stop: 08/03/17 20:59 Last Admin: 06/05/17 21:01 Dose: 10 mg Famotidine (Pepcid) 20 mg PO DAILY [facility] Stop: 08/04/17 08:59 Last Admin: 06/06/17 10:28 Dose: 20 mg Guaifenesin (Robitussin) 200 mg PO Q4HR PRN PRN Reason: Cough or Congestion Stop: 08/03/17 19:38 Last Admin: 06/05/17 21:02 Dose: 200 mg Heparin Sodium (Porcine) (Heparin) 5,000 units SUBQ Q12HR [facility] Stop: 08/03/17 20:59 Last Admin: 06/06/17 10:28 Dose: 5,000 units Dextrose/Sodium Chloride (D5-0.9%Ns) 1,000 mls @ 80 mls/hr IV .[id number] [facility] Stop: 08/03/17 19:44 Last Admin: 06/06/17 07:57 Dose: 80 mls/hr Levofloxacin (Levaquin Pb) 250 mg in 50 mls @ 50 mls/hr IV Q24HR [facility] Stop: 08/05/17 15:59 Ipratropium [place] (Atrovent Neb 0.5mg/2.5ml) 0.5 mg IH QIDRT [facility] Stop: 08/04/17 06:59 Last Admin: 06/06/17 11:46 Dose: 0.5 mg Levothyroxine Sodium (Synthroid) 0.088 mg PO QDAC [facility] Stop: 08/04/17 07:29 Last Admin: 06/06/17 06:57 Dose: 0.088 mg Miscellaneous (Vte Chemical Prophylaxis Screen/ Admission) 1 ea [facility] PRN PRN PRN Reason: PROTOCOL Stop: 08/04/17 08:29 Ondansetron HCl (Zofran) 4 mg IV Q8H PRN PRN Reason: Nausea / Vomiting Stop: 08/03/17 19:38 Phenytoin (Dilantin) 100 mg PO TID [facility] Stop: 08/03/17 20:59 Last Admin: 06/06/17 10:28 Dose: 100 mg Risperidone (Risperdal) 1 mg PO HS [facility] PRN Reason: Protocol Stop: 08/03/17 20:59 Last Admin: 06/05/17 21:02 Dose: 1 mg General: alert HEENT: NC/AT, PERRLA Neck: Supple Lungs: CTAB Cardiovascular: RRR, Normal S1, Normal S2, without murmur Abdomen: soft, non-tender, non-distended, positive bowel sound Neurological: alert Internal Medicine Assmt/Plan - Assessment Assessment: failure to thrive acute uti acute dehydration acute bronchitis htn anemia schizoaffective disorder hypokalemia hyponatremia - Plan Plan: continue ivf for hydration ivabx monitor electrolytes continue current orders Nutritional Asmnt/Malnutr-PDOC - Dietary Evaluation Malnutrition Findings (Please click <Entered> for more info): Nutritional Asmnt/Malnutrition Start: 06/05/17 16: 10 Text: Status: Complete Freq: Document 06/05/17 16:10 JULIUS (Rec: 06/05/17 16:33 JULIUS [id number]) Nutritional Asmnt/Malnutrition Patient General Information Nutritional Screening High Risk Consult Diagnosis FTT, dehydration, hyponatremia Pertinent Medical Hx/Surgical Hx HTN, Asthma/COPD, dyslipidemia , PUD/GERD, arthritis, dementia, depression, schizophrenia Subjective Information Per H&P, pt had poor PO intake x 2days. Pt seen sleeping in bed at time of visit, lunch tray at bedside. Spoke with nurse, pt ate breakfast very slowly, consumed about 50%. Pt was confused, not able to communicate. Current Diet Order/ Nutrition Support regular, high fiber no tomato Pertinent Medications oscal w/vitamin D, d5-0.9%ns, levaquin, synthroid Pertinent Labs 06/05 na 134, K 3.4, Cl 101, BUN 15, Cr 0.7, GLucose 112, Ca8.5 Nutritional Hx/Data Height 5 ft Height (Calculated Centimeters) 152.4 Current Weight (lbs) 170 lb Weight (Calculated Kilograms) 77.1 Weight (Calculated Grams) 72137.7 [place] Body Weight 100 % [place] Body Weight 170 Body Mass Index (BMI) 33.2 Weight Status Obese GI Symptoms GI Symptoms None Last BM none Food Allergies Yes: tomato Usual diet at home reguar high fiber diet, no tomato at [facility] Skin Integrity/Comment: dry. Rash to right upper chest , right and lower leg Current %PO Poor (25-49%) Estimated Nutritional Goals BEE in Kcals: Adj wt of IBW Calories/Kcals/Kg 30-35 based on adj wt 53kg Kcals Calculated 4704-1515 Protein: Adj wt of IBW Protein g/k-1.2 Protein Calculated 53-64 Fluid: ml 1590-1855ml (1ml/kcal) Nutritional Problem 1. Problem Problem inadequat food intake Etiology possible poor appetite and confusion Signs/Symptoms: PO intake <50% Intervention/Recommendation Comments 1. Continue with current diet as ordered. Please assist pt with meal. 2. MD to consider appetite stimulant. If PO intake continue low, will consider adding nutrition supplements. 3. Monitor PO intake, wt, labs and skin integrity 4. F/U as high risk in 2-3 days, 06/07-06/08 Expected Outcomes/Goals Expected Outcomes/Goals 1. PO intake to improve, meet at least 75% of nutritional needs. 2. Wt stability, skin to remain intact, labs to approach WNL.
[2017-06-06] MEDS ORDERED: Levofloxacin 250 mg/50 mL Premix Bag IV SCH (16:00)
[2017-06-07] MEDS: D5-0.9%NS 1,000 ML IV SCH (02:46)
[2017-06-07 06:19] LABS: % EOSINOPHILS 0.1 % (0.0-5.0); % LYMPHOCYTES 15.8 % (20.0-50.0); % MONOCYTES 13.8 % (2.0-10.0); % NEUTROPHILS 69.3 % (40.0-80.0); BASOPHILE ABSOLUTE 0.1 Th/cumm (0-0.2); HEMATOCRIT 36.8 % (41.0-60); HEMOGLOBIN 12.1 gm/dL (12-16); LYMPHOCYTE ABSOLUTE 1.2 Th/cmm (1.5-3.0); MEAN CELL VOLUME 96.9 fl (81-100); MEAN CORPUSCULAR HEMOGLOBIN 31.8 pg (27.0-31.0); MEAN CORPUSCULAR HGB CONC 32.9 pg (28.0-36.0); MEAN PLATELET VOLUME 7.1 fl; NEUTROPHILE ABSOLUTE 5.1 Th/cmm (1.8-8.0); PLATELET COUNT 314 Th/cmm (150-400); RED CELL DISTRIBUTION WIDTH 13.1 % (11.5-20.0); WHITE BLOOD COUNT 7.4 Th/cmm (4.8-10.8)
[2017-06-07 06:27] LABS: CALCIUM SERUM 8.4 mg/dL (8.6-10.3); CARBON DIOXIDE 26.9 mEq/L (21.0-31.0); CHLORIDE 104 mEq/L (98-107); CREATININE - SERUM 0.8 mg/dL (0.6-1.2); GFR AFRICAN-AMERICAN > 60.0 ml/min (>90); GFR NON AFRICAN-AMERICAN > 60.0 ml/min; GLUCOSE 103 mg/dL (70-105); POTASSIUM SERUM 3.9 mEq/L (3.5-5.1); SODIUM SERUM 136 mEq/L (136-145)
[2017-06-07] MEDS: Levothyroxine 0.088 Mg Tab PO SCH (07:02)
[2017-06-07 07:19] LABS: BUN - UREA NITROGEN 13 mg/dL (7-25)
[2017-06-07] MEDS: Albuterol Nebulizer 2.5mg/3mL HHN SCH ×2 (07:46→11:16)
[2017-06-07] MEDS: Ipratropium Neb 0.5 mg/2.5 mL UD IH SCH ×2 (07:47→11:16)
[2017-06-07] MEDS: Calcium Carb/Vit D 500 mg/200 U Tab PO SCH (09:33)
[2017-06-07] MEDS ORDERED: Probiotic Screen MC PRN (11:15)
--- NOTE | 2017-06-07 14:25 | Discharge Summary ---
DATE OF DISCHARGE: 06/07/2017 CHIEF COMPLAINT: Coughing and congestion. FINAL DIAGNOSES: Acute dehydration, acute bronchitis, ____ hypertension, anemia, schizoaffective disorder, electrolyte abnormalities, and UTI. HISTORY: This is a 62-year-old female with multiple medical problems who was admitted through the ER secondary to not eating, not taking her medications. The patient was altered from previous, patient admitted for further management. PHYSICAL EXAMINATION: VITAL SIGNS: Blood pressure 137/93, respirations 18, pulse 79, temperature 97.6. GENERAL: Elderly female, mildly obese. NECK: Supple. No mass. LUNGS: Equal breath sounds, few rhonchi. HEART: Regular rate and rhythm without appreciable murmurs. ABDOMEN: Soft, globular. EXTREMITIES: Positive excoriations. NEUROLOGIC: Limited. HOSPITAL COURSE: The patient was admitted to medical floor, continued on IV hydration and placed on IV antibiotic. The patient's psychotropic medication was also adjusted. The patient's lungs has remained stable, urine culture did not show any apparent growth. The patient is cleared for discharge. DISCHARGE CONDITION: Fair. DISCHARGE INSTRUCTIONS: The patient to continue on current medical regimen. The patient to be discharged to a long term facility. The patient needs to be monitored closely. The patient is medically stable. [facility]# [id number]
[2017-06-08] MEDS ORDERED: Lactobacillus Rhamnosus GG 15 Billion CFU CAP.SPRINK PO SCH (09:00)
== END 2017-06-07 13:20 | disposition home or self-care (01) | DRG 191 ==
LOC: ER 15:07 → MSI 18:30
PROVIDERS: ADMIT Internal Medicine; ATTEND Internal Medicine
DX: J44.0 Chronic obstructive pulmonary disease with (acute) lower respiratory infection (principal); N39.0 Urinary tract infection, site not specified; E87.1 Hypo-osmolality and hyponatremia; F03.90 Unspecified dementia, unspecified severity, without behavioral disturbance, psychotic disturbance, mood disturbance, and anxiety; J20.9 Acute bronchitis, unspecified; E87.6 Hypokalemia; E86.0 Dehydration; I10 Essential (primary) hypertension; E78.5 Hyperlipidemia, unspecified; K21.9 Gastro-esophageal reflux disease without esophagitis; M19.90 Unspecified osteoarthritis, unspecified site; I25.9 Chronic ischemic heart disease, unspecified; R62.7 Adult failure to thrive; D64.9 Anemia, unspecified; F25.9 Schizoaffective disorder, unspecified; Z88.5 Allergy status to narcotic agent; Z88.8 Allergy status to other drugs, medicaments and biological substances; Z88.6 Allergy status to analgesic agent; Z91.018 Allergy to other foods; Z83.3 Family history of diabetes mellitus; Z82.49 Family history of ischemic heart disease and other diseases of the circulatory system
CPT/HCPCS: 36415-UA; 70450-TC; 71045-TC; 80048-TC; 80053-TC; 81001-TC; 81025-TC; 82550-TC; 82948-90; 83605; 83880-TC; 84443-TC; 84484-TC; 85025-TC; 85610-TC; 85730-TC; 87086-90; 90779; 93005; 94760; J1644; J1956; J7042; J7613; Z7610

== ENCOUNTER 2018-04-15 14:42 | Inpatient (IN) | payer MEDICARE, MEDICAID ==
[2018-04-15] MEDS ORDERED: Sodium Chloride 0.9% 1,000 ML IV ONE (15:10)
--- NOTE | 2018-04-15 15:14 | ED Physician Chart ---
ED Chief Complaint/HPI - Patient Information Date Seen:: 04/15/18 Time Seen:: 14:50 Chief Complaint:: Abdominal Pain History of Present Illness:: onset x 2 days of diffuse, intermittent, crampy abdominal pain, N/V/D x 3; no report of trauma, LOC, ALOC, AMS, H/As, S/T, neck pain, C/P, cough, SOB, A/C, fever, chills, or urinary s/s; pt is 15 years post-menopausal; Allergies:: Allergies Allergy/AdvReac Type Severity Reaction Status Date / Time aspirin Allergy Verified 04/15/18 14:57 citalopram Allergy Verified 04/15/18 14:57 codeine Allergy Verified 04/15/18 14:57 dimenhydrinate Allergy Verified 04/15/18 14:57 diphenhydramine HCl Allergy Verified 04/15/18 14:57 [From Benadryl] lorazepam Allergy Verified 04/15/18 14:57 pioglitazone Allergy Verified 04/15/18 14:57 tomato Allergy Verified 04/15/18 14:57 venlafaxine Allergy Verified 04/15/18 14:57 Vitals:: Vital Signs - 8 hr 04/15/18 14:49 Temp 97.6 F HR 77 RR 20 BP 121/70 O2 Sat % 95 Historian:: Patient Review:: Nurse's Note Reviewed, Old Chart Reviewed, EMS run form Reviewed ED Review of Systems - Review of Systems General/Constitutional: No fever, No chills, No weight loss, No weakness, No diaphoresis, No edema, No loss of appetite Skin: No skin lesions, No rash, No bruising Head: No headache, No light-headedness Eyes: No loss of vision, No pain, No diplopia ENT: No earache, No nasal drainage, No sore throat, No tinnitus Neck: No neck pain, No swelling, No thyromegaly, No stiffness, No mass noted Cardio Vascular: No chest pain, No palpitations, No PND, No orthopnea, No edema Pulmonary: No SOB, No cough, No sputum, No wheezing GI: Nausea, Vomiting, Diarrhea, Pain, No melena, No hematochezia, No constipation, No hematemesis G/U: No dysuria, No frequency, No hematuria, No nacturia [employer]: No vaginal discharge, No abnormal vaginal bleed, No contraction Musculoskeletal: No bone or joint pain, No back pain, No muscle pain Endocrine: No polyuria, No polydipsia Psychiatric: No prior psych history, No depression, No anxiety, No suicidal ideation, No homicidal ideation, No auditory hallucination, No visual hallucination Hematopoietic: No bruising, No lymphadenopathy Allergic/Immuno: No urticaria, No angioedema Neurological: No syncope, No focal symptoms, No weakness, No paresthesia, No headache, No seizure, No dizziness, No confusion, No vertigo ED Past Medical History - Past Medical History Obtainable: Yes Past Medical History: HTN, Asthma/COPD, PUD/GERD, Seizures, Thyroid disorder, Arthritis, Dementia Family History: HTN Social History: Non Smoker, No Alcohol, No Drug Use, Single, Care Facility Surgical History: None Psychiatricy History: Schizophrenia, Bipolar, Dementia Medication: Reviewed Family Medical History - Family Member Mother History Unknown: Yes Ethnicity: Non- Living Status: Unknown Hx Family Cancer: No Hx Family Coronary Artery Disease: No Hx Family Congestive Heart Failure: No Hx Family Hypertension: Yes Hx Family Stroke: No Hx Family Diabetes: Yes Hx Family Seizures: No Hx Family Dementia: No Hx Family AIDS: No Hx Family HIV: No Hx Family COPD: No Hx Family Hepatitis: No Hx Family Psychiatric Problems: No Hx Family Tuberculosis: No ED Physical Exam - Physical Examination General/Constitutional: Awake, Well-developed, well-nourished, Alert, No distress, GCS 15, Non-toxic appearing, Ambulatory Head: Atraumatic Eyes: Lids, conjuctiva normal, PERRL, EOMI Skin: Nl inspection, No rash, No skin lesions, No ecchymosis, Well hydrated, No lymphadenopathy ENMT: External ears, nose nl, TM canals nl, Nasal exam nl, Lips, teeth, gums nl , Oropharynx nl, Tonsils nl Neck: Nontender, Full ROM w/o pain, No JVD, No nuchal rigidity, No bruit, No mass, No stridor Respiratory: Nl effort/Exclusion, Clear to Auscultation, No Wheeze/Rhonchi/Rales Cardio Vascular: RRR, No murmur, gallop, rubs, NL S1 S2, Carotid/Femoral/Distal pulses equal bilaterally GI: No tenderness/rebounding/guarding, No organomegaly, No hernia, Normal BS's, Nondistended, No mass/bruits, No McBurney tenderness : No CVA tenderness Extremities: No tenderness or effusion, Full ROM, normal strength in all extremities, No edema, Normal digits & nails Neuro/Psych: Alert/oriented, DTR's symmetric, Normal sensory exam, Normal motor strength, Judgement/insight normal, Mood normal, Normal gait, No focal deficits Misc: Normal back, No paraspinal tenderness ED Labs/Radiology/EKG Results - Lab Results Comments:: Reviewed - Radiology Results Comments:: NAD - EKG Interpretations EKG Time:: 15:23 Rate & Rhythm: 72; NSR Comments:: Inverted T-Waves in I, AVL, V1, V2, and V3 ED Septic Shock - . Is Septic Shock (SBP<90, OR Lactate>4 mmol\L) present?: No - <6hrs of presentation: Vital Signs: Vital Signs - 8 hr 04/15/18 14:49 Temp 97.6 F HR 77 RR 20 BP 121/70 O2 Sat % 95 ED Reassessment (Disposition) - Reassessment Reassessment Condition:: Improved - Diagnosis Diagnosis:: Abdominal Pain; N/V/D; AGE; Myocardial Ischemia; Hyponatremia; Coagulopathy; Hyperlipidemia; UTI; Sepsis - Aftercare/Follow up Instructions Aftercare/Follow-Up Instructions:: Counseled pt regarding lab results/diagnosis & need follow up, Counseled pt & family regarding lab results/diagnosis & need follow up - Patient Disposition Discharge/Transfer:: Acute Care w/in this hosp Accepting Physician:: Dr. Alaniz Time Called:: 806 Time Responded:: 16:45 Admitted to:: Med/Surg Spoke to:: Dr. Alaniz Admitting Medical Physician:: Dr. Alaniz Condition at Disposition:: Stable, Improved
[2018-04-15 15:50] LABS: % BASOPHILS 0.1 % (0.0-2.0); % EOSINOPHILS 0.1 % (0.0-5.0); % LYMPHOCYTES 14.1 % (20.0-50.0); % MONOCYTES 10.2 % (2.0-10.0); % NEUTROPHILS 75.5 % (40.0-80.0); HEMATOCRIT 43.7 % (41.0-60); HEMOGLOBIN 14.6 gm/dL (12-16); LYMPHOCYTE ABSOLUTE 1.3 Th/cmm (1.5-3.0); MEAN CELL VOLUME 95.5 fl (81-100); MEAN CORPUSCULAR HEMOGLOBIN 31.9 pg (27.0-31.0); MEAN CORPUSCULAR HGB CONC 33.4 pg (28.0-36.0); MEAN PLATELET VOLUME 7.7 fl; MONOCYTE ABSOLUTE 0.9 Th/cmm (0.3-1.0); NEUTROPHILE ABSOLUTE 6.8 Th/cmm (1.8-8.0); PLATELET COUNT 322 Th/cmm (150-400); RED BLOOD COUNT 4.58 Mil/cmm (3.80-5.10); RED CELL DISTRIBUTION WIDTH 12.8 % (11.5-20.0)
[2018-04-15 16:03] LABS: INR 2.11 (0.5-1.4); PROTHROMBIN TIME (TEST) 21.2 SECONDS (9.5-11.5)
[2018-04-15 16:06] LABS: ALBUMIN 3.6 gm/dL (3.7-5.3); ALKALINE PHOSPHATASE 87 U/L (34-104); AMYLASE SERUM 75 U/L (29-103); ANION GAP 14.4 (7.0-16.0); BILIRUBIN,TOTAL 0.3 mg/dL (0.3-1.0); BUN - UREA NITROGEN 19 mg/dL (7-25); CALCIUM SERUM 8.9 mg/dL (8.6-10.3); CARBON DIOXIDE 24.5 mEq/L (21.0-31.0); CHLORIDE 98 mEq/L (98-107); CHOLESTEROL 316 mg/dL (<200); CREATININE - SERUM 0.8 mg/dL (0.6-1.2); CREATININE KINASE 17 U/L (30-223); GFR AFRICAN-AMERICAN > 60.0 ml/min (>90); GFR NON AFRICAN-AMERICAN > 60.0 ml/min; GLUCOSE 87 mg/dL (70-105); HDL -HIGH DENSITY LIPOPROTEIN 64 mg/dL (23-92); LIPASE 33 U/L (11-82); PHENYTOIN 12.4 ug/ml (10.0-20.0); POTASSIUM SERUM 3.9 mEq/L (3.5-5.1); SGOT 16 U/L (13-39); SGPT/ALT 20 U/L (7-52); SODIUM SERUM 133 mEq/L (136-145); TOTAL PROTEIN,SERUM 7.3 gm/dL (6.0-8.3); TRIGLYCERIDES 100 mg/dL (<150)
[2018-04-15 17:04] LABS: URINE SOURCE CLEAN C
[2018-04-15 17:07] LABS: URINE BILIRUBIN NEGATIVE (NEGATIVE); URINE BLOOD MODERATE (NEGATIVE); URINE GLUCOSE (UA) NEGATIVE (NEGATIVE); URINE KETONE TRACE mg/dL (NEGATIVE); URINE LEUKOCYTE ESTERASE NEGATIVE (NEGATIVE); URINE MICROSCOPIC INDICATED? YES; URINE NITRATE POSITIVE (NEGATIVE); URINE PROTEIN TRACE mg/dL (NEGATIVE); URINE UROBILINOGEN 0.2 E.U./dL (0.2 - 1.0)
[2018-04-15 17:12] LABS: URINE CLARITY HAZY (CLEAR); URINE COLOR YELLOW
[2018-04-15] MEDS ORDERED: cefTRIAXone 1 GM in Sodium Chloride 0.9% 50 ML IV ONE (17:35)
[2018-04-15 17:59] LABS: URINE BACTERIA 4+ /hpf (NONE SEEN); URINE EPITHELIAL CELLS MODERATE /lpf (FEW)
[2018-04-15] MEDS ORDERED: Maalox 30 mL Cup PO PRN (18:57)
[2018-04-15] MEDS: D5-0.45NS 1,000 ML IV SCH (21:34)
[2018-04-15 23:53] VITALS: BP 145/75
[2018-04-16] MEDS: Levothyroxine 0.088 Mg Tab PO SCH (07:22)
--- NOTE | 2018-04-16 07:57 | Diagnostic Imaging Report ---
CT abdomen and pelvis without intravenous contrast Indication: Abdominal pain Comparison: None, Technique: Axial images were obtained from the lung bases to the bilateral proximal femurs without IV contrast. Coronal reconstructions were made. total DLP: 803, CTDI16.1 FINDINGS: Hypoventilatory and atelectatic changes of the lung bases are noted. Assessment of the solid organs is limited due to lack of IV contrast. Exam is also limited due to motion. 1 cm low-density lesion of the posterior right lobe of liver is noted, probably representing a cyst. No focal splenic, pancreatic, or adrenal lesions. No evidence of hydronephrosis or nephrolithiasis. Bilateral tubal ligation clips are noted. Distal fecal impaction is noted with mass effect upon the uterus. Tiny pocket of gas is seen within the cervix. Copious stool is noted throughout the colon. Appendix is not visualized. No free fluid or free air. There is mild diastases of the rectus abdominis muscles. Degenerative changes of the spine and pelvis are noted. Spinal scoliosis is noted. IMPRESSION: Distal fecal impacted and copious stool noted. Appendix was not visualized. No inflammatory changes in the right lower quadrant. Bilateral tubal ligation clips. 1 cm low-density hepatic lesions difficult to characterize but likely representing a cyst. Ultrasound may further clarify. Degenerative changes.
--- NOTE | 2018-04-16 08:33 | Diagnostic Imaging Report ---
Portable chest x-ray History: Pain The heart size is difficult to assess with portable technique and a poor inspiration. No focal pulmonary parenchymal processes. No hilar or mediastinal abnormalities. Impression: No acute abnormalities.
[2018-04-16] MEDS: Lactobacillus Rhamnosus GG 15 Billion CFU CAP.SPRINK PO SCH (08:42)
[2018-04-16] MEDS: Calcium Carb/Vit D 500 mg/200 U Tab PO SCH (08:43)
[2018-04-16] MEDS: D5-0.45NS 1,000 ML IV SCH (12:00)
[2018-04-16] MEDS: POLYETHYLENE GLYCOL 3350 17 GM PACK PO SCH (12:46)
--- NOTE | 2018-04-16 13:57 | History & Physical ---
ADMIT DATE: 04/15/2018 CHIEF COMPLAINT: Vomiting, abdominal pain. HISTORY OF PRESENT ILLNESS: This is a 63-year-old female well known to my service with a history of hypertension, GERD, psych disorder, admitted from nursing facility secondary to above complaints. The patient vomited several times. The patient was evaluated in the ER by Dr. Byrne. Also noted to have urinary tract infection, admitted for further management. PAST MEDICAL HISTORY: As mentioned in history present illness. PAST SURGICAL HISTORY: Unable to obtain from the patient. ALLERGIES: ASPIRIN, CELEXA, CODEINE, DIMENHYDRINATE. MEDICATIONS: Tylenol, calcium, Tegretol, Aricept, albuterol, and Dilantin. FAMILY HISTORY: Noncontributory. SOCIAL HISTORY: The patient is a care home patient requiring 24-hour total care. REVIEW OF SYSTEMS: This is limited secondary to pain, comatose. We will try to obtain more detailed review of system at a later date by talking to family members, there is a sister, Amy Costello, . We will also try to get information from nursing staff at [facility], . PHYSICAL EXAMINATION: VITAL SIGNS: Blood pressure 141/71, respirations 15, pulse 66, temperature 97.0. GENERAL: Elderly female, appears her stated age. NECK: Supple. No mass. LUNGS: Equal breath sounds, few rhonchi. HEART: Regular rate and rhythm without appreciable murmurs. ABDOMEN: Soft, globular. EXTREMITIES: Positive excoriation. Positive contractures. NEUROLOGIC: Limited. LABORATORY DATA: WBC 9, hemoglobin 14, platelets 322. INR 2.1. Sodium 133, potassium 3.9, BUN ____, creatinine 0.8, blood sugar was 87, albumin 3.6, ____. UA 4+ bacteria. ASSESSMENT AND PLAN: Abdominal pain of unclear etiology, urinary tract infection, intractable vomiting, hypertension, gastroesophageal reflux disease, psych disorder, hypercoagulable state, hyponatremia, and hypercholesterolemia. Continue the patient on IV hydration and we will follow the patient's urine culture. We will refer the patient to GI for consult. CT of the abdomen and pelvis are ordered. We will follow the results. We will continue to monitor the patient and monitor setting. JOB# [id number]
--- NOTE | 2018-04-16 15:00 | Consultation ---
DATE OF CONSULTATION: 04/16/2018 GASTROENTEROLOGY CONSULTATION REQUESTING PHYSICIAN: Burton Alaniz D.O. REASON FOR CONSULTATION: Abdominal pain with nausea and vomiting and constipation. HISTORY OF PRESENT ILLNESS: A 63-year-old female with encephalopathy, hypertension, asthma, COPD, GERD, seizure disorder, hypothyroid, arthritis, and dementia. She was seen in the ER for abdominal pain, nausea and vomiting. CT showed fecal impaction. We were asked to see her for this reason. PAST MEDICAL HISTORY: Also notable for schizophrenia, bipolar disorder and dementia versus encephalopathy. MEDICATIONS: Here are Tylenol, Maalox, albuterol, vitamin D with calcium, Tegretol, cefepime, IV fluids, Aricept, Atrovent, Culturelle, Synthroid, Zofran, Protonix, and Dilantin. ALLERGIES: ASPIRIN, CITALOPRAM, CODEINE, THIAMINE HYDRANATE AND DIPHENHYDRAMINE. SOCIAL HISTORY: No recent tobacco, alcohol or drugs. FAMILY HISTORY: Noncontributory. REVIEW OF SYSTEMS: A comprehensive 12-point review of systems was conducted and is only positive for the signs and symptoms present in the history of present illness. PHYSICAL EXAMINATION: VITAL SIGNS: Temperature 96.8, blood pressure 142/71, pulse of 70, respirations 16, O2 sat 99% on 2 liters. GENERAL: The patient is well-developed, well-nourished elderly female who is in no acute distress. HEENT: Sclerae nonicteric. Oropharynx is clear. CARDIOVASCULAR: Regular rate and rhythm. LUNGS: Clear to auscultation bilaterally. ABDOMEN: Soft, nontender, nondistended. EXTREMITIES: No clubbing, cyanosis or edema. RECTAL: Reveals normal sphincter tone. There is some distal fecal impaction. Digital disimpaction was performed and a large amount of stool was evacuated. LABORATORY DATA AND IMAGING: Complete blood count is normal. INR is 2.1. Creatinine is 0.8. Liver labs are normal. Amylase and lipase normal. CT of the abdomen and pelvis done without contrast shows distal fecal impaction. Appendix not visualized. No inflammatory changes in right lower quadrant, bilateral tubal ligation, small hepatic lesions difficult to characterize, but likely representing cysts, and also, degenerative spine changes. IMPRESSION: 1. Abdominal pain with nausea and vomiting, likely from constipation/distal fecal impaction, status post digital disimpaction with improvement. 2. Encephalopathy, dementia and schizophrenia. 3. History of hypertension. RECOMMENDATIONS: 1. Continue laxatives per mouth and per rectum. 2. Oral diet to be advanced as tolerated. 3. Monitor labs. Thank you, Dr. Burton Alaniz, for involving us in the care of your patient. If you have any further questions, please call us. JOB# [id number]
[2018-04-17] MEDS: D5-0.45NS 1,000 ML IV SCH ×2 (02:18→17:38)
[2018-04-17 06:32] LABS: % BASOPHILS 0.4 % (0.0-2.0); % EOSINOPHILS 0.1 % (0.0-5.0); % LYMPHOCYTES 18.2 % (20.0-50.0); % MONOCYTES 9.8 % (2.0-10.0); % NEUTROPHILS 71.5 % (40.0-80.0); HEMATOCRIT 40.3 % (41.0-60); HEMOGLOBIN 13.4 gm/dL (12-16); LYMPHOCYTE ABSOLUTE 1.3 Th/cmm (1.5-3.0); MEAN CELL VOLUME 95.7 fl (81-100); MEAN CORPUSCULAR HEMOGLOBIN 31.7 pg (27.0-31.0); MEAN CORPUSCULAR HGB CONC 33.1 pg (28.0-36.0); MEAN PLATELET VOLUME 7.4 fl; MONOCYTE ABSOLUTE 0.7 Th/cmm (0.3-1.0); NEUTROPHILE ABSOLUTE 5.4 Th/cmm (1.8-8.0); PLATELET COUNT 296 Th/cmm (150-400); RED BLOOD COUNT 4.21 Mil/cmm (3.80-5.10); RED CELL DISTRIBUTION WIDTH 12.6 % (11.5-20.0); WHITE BLOOD COUNT 7.4 Th/cmm (4.8-10.8)
[2018-04-17 06:41] LABS: INR 0.96 (0.5-1.4)
[2018-04-17 06:47] LABS: ANION GAP 11.3 (7.0-16.0); BUN - UREA NITROGEN 11 mg/dL (7-25); CALCIUM SERUM 8.8 mg/dL (8.6-10.3); CARBON DIOXIDE 25.1 mEq/L (21.0-31.0); CHLORIDE 101 mEq/L (98-107); CREATININE - SERUM 0.6 mg/dL (0.6-1.2); GFR AFRICAN-AMERICAN > 60.0 ml/min (>90); GFR NON AFRICAN-AMERICAN > 60.0 ml/min; GLUCOSE 89 mg/dL (70-105); POTASSIUM SERUM 3.4 mEq/L (3.5-5.1); SODIUM SERUM 134 mEq/L (136-145)
[2018-04-17] MEDS: Levothyroxine 0.088 Mg Tab PO SCH (07:02)
[2018-04-17] MEDS: Lactobacillus Rhamnosus GG 15 Billion CFU CAP.SPRINK PO SCH (08:56)
[2018-04-17] MEDS: Calcium Carb/Vit D 500 mg/200 U Tab PO SCH (08:56)
[2018-04-17] MEDS: POLYETHYLENE GLYCOL 3350 17 GM PACK PO SCH (08:57)
--- NOTE | 2018-04-17 09:16 | Diagnostic Imaging Report ---
KUB abdominal film HISTORY: Pain There is a nonspecific gas pattern of nondilated bowel. Stool noted within nondilated large bowel and within the rectal area. No free intraperitoneal air. IMPRESSION: 1. Nondilated stool-filled large bowel with an otherwise nonspecific gas pattern.
[2018-04-17] MEDS: Albuterol Nebulizer 2.5mg/3mL HHN SCH ×3 (11:14→18:48)
[2018-04-17] MEDS: Ipratropium Neb 0.5 mg/2.5 mL UD HHN SCH ×3 (11:14→18:48)
--- NOTE | 2018-04-17 12:09 | GI Progress Note ---
Subjective - Review of Systems Service Date: 04/17/18 Subjective: EVENTS NOTED. BAILEY DIET. FEELING BETTER. Objective - Results Result Diagrams: 04/17/18 05:59 04/17/18 05:59 Recent Labs: Laboratory Last Values WBC 7.4 Th/cmm (4.8-10.8) 04/17/18 05:59 RBC 4.21 Mil/cmm (3.80-5.10) 04/17/18 05:59 Hgb 13.4 gm/dL (12-16) 04/17/18 05:59 Hct 40.3 % (41.0-60) L 04/17/18 05:59 MCV 95.7 fl (81-100) 04/17/18 05:59 MCH 31.7 pg (27.0-31.0) H 04/17/18 05:59 MCHC Differential 33.1 pg (28.0-36.0) 04/17/18 05:59 RDW 12.6 % (11.5-20.0) 04/17/18 05:59 Plt Count 296 Th/cmm (150-400) 04/17/18 05:59 MPV 7.4 fl 04/17/18 05:59 Neutrophils % 71.5 % (40.0-80.0) 04/17/18 05:59 Lymphocytes % 18.2 % (20.0-50.0) L 04/17/18 05:59 Monocytes % 9.8 % (2.0-10.0) 04/17/18 05:59 Eosinophils % 0.1 % (0.0-5.0) 04/17/18 05:59 Basophils % 0.4 % (0.0-2.0) 04/17/18 05:59 PT 10.0 SECONDS (9.5-11.5) 04/17/18 05:59 INR 0.96 (0.5-1.4) 04/17/18 05:59 PTT (Actin FS) 28.3 SECONDS (26.0-38.0) 04/17/18 05:59 Sodium 134 mEq/L (136-145) L 04/17/18 05:59 Potassium 3.4 mEq/L (3.5-5.1) L 04/17/18 05:59 Chloride 101 mEq/L (98-107) 04/17/18 05:59 Carbon Dioxide 25.1 mEq/L (21.0-31.0) 04/17/18 05:59 Anion Gap 11.3 (7.0-16.0) 04/17/18 05:59 BUN 11 mg/dL (7-25) 04/17/18 05:59 Creatinine 0.6 mg/dL (0.6-1.2) 04/17/18 05:59 Est GFR ( Amer) > 60.0 ml/min (>90) 04/17/18 05:59 Est GFR (Non-Af Amer) > 60.0 ml/min 04/17/18 05:59 BUN/Creatinine Ratio 18.3 04/17/18 05:59 Glucose 89 mg/dL (70-105) 04/17/18 05:59 Calcium 8.8 mg/dL (8.6-10.3) 04/17/18 05:59 Total Bilirubin 0.3 mg/dL (0.3-1.0) 04/15/18 15:37 AST 16 U/L (13-39) 04/15/18 15:37 ALT 20 U/L (7-52) 04/15/18 15:37 Alkaline Phosphatase 87 U/L (34-104) 04/15/18 15:37 Creatine Kinase 17 U/L (30-223) L 04/15/18 15:37 Troponin I 0.02 ng/mL (0.01-0.05) 04/15/18 15:37 B-Natriuretic Peptide 36.4 pg/mL (5.0-100.0) 04/17/18 05:59 Total Protein 7.3 gm/dL (6.0-8.3) 04/15/18 15:37 Albumin 3.6 gm/dL (3.7-5.3) L 04/15/18 15:37 Globulin 3.7 gm/dL 04/15/18 15:37 Albumin/Globulin Ratio 1.0 (1.0-1.8) 04/15/18 15:37 Triglycerides 100 mg/dL (<150) 04/15/18 15:37 Cholesterol 316 mg/dL (<200) H 04/15/18 15:37 LDL Cholesterol Direct 237 mg/dL (75-193) H 04/15/18 15:37 HDL Cholesterol 64 mg/dL (23-92) 04/15/18 15:37 Amylase 75 U/L (29-103) 04/15/18 15:37 Lipase 33 U/L (11-82) 04/15/18 15:37 Urine Source CLEAN C 04/15/18 16:20 Urine Color YELLOW 04/15/18 16:20 Urine Clarity HAZY (CLEAR) 04/15/18 16:20 Urine pH 6.0 (4.6 - 8.0) 04/15/18 16:20 Ur Specific Barney 1.025 (1.005-1.030) 04/15/18 16:20 Urine Protein TRACE mg/dL (NEGATIVE) 04/15/18 16:20 Urine Glucose (UA) NEGATIVE mg/dL (NEGATIVE) 04/15/18 16:20 Urine Ketones TRACE mg/dL (NEGATIVE) 04/15/18 16:20 Urine Blood MODERATE (NEGATIVE) H 04/15/18 16:20 Urine Nitrate POSITIVE (NEGATIVE) H 04/15/18 16:20 Urine Bilirubin NEGATIVE (NEGATIVE) 04/15/18 16:20 Urine Urobilinogen 0.2 E.U./dL (0.2 - 1.0) 04/15/18 16:20 Ur Leukocyte Esterase NEGATIVE (NEGATIVE) 04/15/18 16:20 Urine RBC 5-10 /hpf (0-5) H 04/15/18 16:20 Urine WBC 2-5 /hpf (0-5) 04/15/18 16:20 Ur Epithelial Cells MODERATE /lpf (FEW) 04/15/18 16:20 Calcium Oxalate Crystal FEW /hpf 04/15/18 16:20 Urine Bacteria 4+ /hpf (NONE SEEN) H 04/15/18 16:20 Phenytoin 12.4 ug/ml (10.0-20.0) 04/15/18 15:37 Carbamazepine 7.3 ug/ml (4.0-12.0) 04/15/18 15:37 - Physical Exam Vitals and I&O: Vital Signs Temp 96.2 F 04/17/18 08:15 Pulse 64 04/17/18 11:17 Resp 18 04/17/18 11:17 BP 133/74 04/17/18 08:15 Pulse Ox 98 04/17/18 11:17 Intake & Output 04/16/18 04/17/18 04/17/18 18:59 06:59 18:59 Intake Total 1850 1150 Output Total 700 Balance 1150 1150 Weight (lbs) 78.925 kg 79.832 kg Intake: Intake, IV Amount 1050 1050 Cefepime 1 gm In Dextrose 50 50 5% 50 ml @ 100 mls/hr IV Q12H [facility] Rx#:[id number] D5-0.45NS 1,000 ml @ 80 1000 1000 mls/hr IV .[id number] [facility] Rx #:[id number] Oral 800 100 Output: Urine 700 Other: # Voids 1 # Bowel Movements 0 1 Stool Characteristics Hard Brown Weight Source Bedscale Bedscale Active Medications: Current Medications Acetaminophen (Tylenol) 650 mg PO Q4H PRN PRN Reason: Pain Or Fever above 101 Stop: 06/14/18 18:56 Al Hydrox/Mg Hydrox/Simethicone (Maalox) 30 ml PO Q6H PRN PRN Reason: Dyspepsia Stop: 06/14/18 18:56 Albuterol Sulfate (Albuterol 2.5mg/3ml Neb Ud) 2.5 mg HHN QIDRT [facility] Stop: 06/14/18 18:59 Last Admin: 04/17/18 11:14 Dose: 2.5 mg Calcium/Vitamin D (Oscal W/Vitamin D) 1 tab PO DAILY [facility] Stop: 06/15/18 08:59 Last Admin: 04/17/18 08:56 Dose: 1 tab Carbamazepine (Tegretol) 400 mg PO BID [facility]; Protocol Stop: 06/15/18 08:59 Last Admin: 04/17/18 08:57 Dose: 400 mg Donepezil HCl (Aricept) 10 mg PO HS [facility] Stop: 06/14/18 20:59 Last Admin: 04/16/18 22:41 Dose: 10 mg Cefepime HCl 1 gm/ Dextrose 50 mls @ 100 mls/hr IV Q12H [facility] Stop: 06/14/18 18:59 Last Admin: 04/17/18 07:02 Dose: 100 mls/hr Dextrose/Sodium Chloride (D5-0.45ns) 1,000 mls @ 80 mls/hr IV .[id number] [facility] Stop: 06/14/18 18:59 Last Admin: 04/17/18 02:18 Dose: 80 mls/hr Ipratropium [place] (Atrovent Neb 0.5mg/2.5ml) 0.5 mg HHN QIDRT [facility] Stop: 06/14/18 18:59 Last Admin: 04/17/18 11:14 Dose: 0.5 mg Lactobacillus Rhamnosus (Culturelle 15b) 1 each PO DAILY [facility] Stop: 06/15/18 08:59 Last Admin: 04/17/18 08:56 Dose: 1 each Levothyroxine Sodium (Synthroid) 0.088 mg PO QDAC [facility] Stop: 06/15/18 07:29 Last Admin: 04/17/18 07:02 Dose: 0.088 mg Lorazepam (Ativan) 1 mg IV Q4H PRN; Protocol PRN Reason: Seizure Stop: 06/14/18 18:59 Ondansetron HCl (Zofran) 4 mg IV Q8H PRN PRN Reason: Nausea / Vomiting Stop: 06/14/18 18:59 Pantoprazole Sodium (Protonix) 40 mg IVP BID [facility] Stop: 06/15/18 08:59 Last Admin: 04/17/18 08:57 Dose: 40 mg Phenytoin (Dilantin) 100 mg PO TID [facility] Stop: 06/14/18 20:59 Last Admin: 04/17/18 09:00 Dose: 100 mg Polyethylene Glycol (Miralax) 17 gm PO DAILY [facility] Stop: 06/15/18 10:14 Last Admin: 04/17/18 08:57 Dose: 17 gm General: No acute distress HEENT: Atraumatic Neck: Supple Cardiovascular: Regular rate Lungs: Clear to auscultation Abdomen: Bowel sounds, Soft, no Tender, no Distended Assessment/Plan - Assessment Assessment: IMPRESSION: 1. FECAL IMPACTION, BETTER. 2. ENCEPHALOPATHY/DEMENTIA. RECS: 1. LAXATIVES. 2. SERIAL KUB CHECKS TILL IMPACTION CLEARED. 3. ORAL DIET BAILEY.
--- NOTE | 2018-04-17 12:41 | Internal Medicine Prog Note ---
Internal Medicine Subjective - Subjective Patient seen and examined:: with staff, chart reviewed Patient is:: awake, verbal, interactive, in bed Patient Complaints of:: pain with urination Per staff patient has:: no adverse event, no episodes of fall, poor appetite, tolerating meds Internal Medicine Objective - Results Result Diagrams: 04/17/18 05:59 04/17/18 05:59 Recent Labs: Laboratory Last Values WBC 7.4 Th/cmm (4.8-10.8) 04/17/18 05:59 RBC 4.21 Mil/cmm (3.80-5.10) 04/17/18 05:59 Hgb 13.4 gm/dL (12-16) 04/17/18 05:59 Hct 40.3 % (41.0-60) L 04/17/18 05:59 MCV 95.7 fl (81-100) 04/17/18 05:59 MCH 31.7 pg (27.0-31.0) H 04/17/18 05:59 MCHC Differential 33.1 pg (28.0-36.0) 04/17/18 05:59 RDW 12.6 % (11.5-20.0) 04/17/18 05:59 Plt Count 296 Th/cmm (150-400) 04/17/18 05:59 MPV 7.4 fl 04/17/18 05:59 Neutrophils % 71.5 % (40.0-80.0) 04/17/18 05:59 Lymphocytes % 18.2 % (20.0-50.0) L 04/17/18 05:59 Monocytes % 9.8 % (2.0-10.0) 04/17/18 05:59 Eosinophils % 0.1 % (0.0-5.0) 04/17/18 05:59 Basophils % 0.4 % (0.0-2.0) 04/17/18 05:59 PT 10.0 SECONDS (9.5-11.5) 04/17/18 05:59 INR 0.96 (0.5-1.4) 04/17/18 05:59 PTT (Actin FS) 28.3 SECONDS (26.0-38.0) 04/17/18 05:59 Sodium 134 mEq/L (136-145) L 04/17/18 05:59 Potassium 3.4 mEq/L (3.5-5.1) L 04/17/18 05:59 Chloride 101 mEq/L (98-107) 04/17/18 05:59 Carbon Dioxide 25.1 mEq/L (21.0-31.0) 04/17/18 05:59 Anion Gap 11.3 (7.0-16.0) 04/17/18 05:59 BUN 11 mg/dL (7-25) 04/17/18 05:59 Creatinine 0.6 mg/dL (0.6-1.2) 04/17/18 05:59 Est GFR ( Amer) > 60.0 ml/min (>90) 04/17/18 05:59 Est GFR (Non-Af Amer) > 60.0 ml/min 04/17/18 05:59 BUN/Creatinine Ratio 18.3 04/17/18 05:59 Glucose 89 mg/dL (70-105) 04/17/18 05:59 Calcium 8.8 mg/dL (8.6-10.3) 04/17/18 05:59 Total Bilirubin 0.3 mg/dL (0.3-1.0) 04/15/18 15:37 AST 16 U/L (13-39) 04/15/18 15:37 ALT 20 U/L (7-52) 04/15/18 15:37 Alkaline Phosphatase 87 U/L (34-104) 04/15/18 15:37 Creatine Kinase 17 U/L (30-223) L 04/15/18 15:37 Troponin I 0.02 ng/mL (0.01-0.05) 04/15/18 15:37 B-Natriuretic Peptide 36.4 pg/mL (5.0-100.0) 04/17/18 05:59 Total Protein 7.3 gm/dL (6.0-8.3) 04/15/18 15:37 Albumin 3.6 gm/dL (3.7-5.3) L 04/15/18 15:37 Globulin 3.7 gm/dL 04/15/18 15:37 Albumin/Globulin Ratio 1.0 (1.0-1.8) 04/15/18 15:37 Triglycerides 100 mg/dL (<150) 12/05/18 15:37 Cholesterol 316 mg/dL (<200) H 04/15/18 15:37 LDL Cholesterol Direct 237 mg/dL (75-193) H 04/15/18 15:37 HDL Cholesterol 64 mg/dL (23-92) 04/15/18 15:37 Amylase 75 U/L (29-103) 04/15/18 15:37 Lipase 33 U/L (11-82) 04/15/18 15:37 Urine Source CLEAN C 04/15/18 16:20 Urine Color YELLOW 04/15/18 16:20 Urine Clarity HAZY (CLEAR) 04/15/18 16:20 Urine pH 6.0 (4.6 - 8.0) 04/15/18 16:20 Ur Specific [place] 1.025 (1.005-1.030) 04/15/18 16:20 Urine Protein TRACE mg/dL (NEGATIVE) 04/15/18 16:20 Urine Glucose (UA) NEGATIVE mg/dL (NEGATIVE) 04/15/18 16:20 Urine Ketones TRACE mg/dL (NEGATIVE) 04/15/18 16:20 Urine Blood MODERATE (NEGATIVE) H 04/15/18 16:20 Urine Nitrate POSITIVE (NEGATIVE) H 04/15/18 16:20 Urine Bilirubin NEGATIVE (NEGATIVE) 04/15/18 16:20 Urine Urobilinogen 0.2 E.U./dL (0.2 - 1.0) 04/15/18 16:20 Ur Leukocyte Esterase NEGATIVE (NEGATIVE) 04/15/18 16:20 Urine RBC 5-10 /hpf (0-5) H 04/15/18 16:20 Urine WBC 2-5 /hpf (0-5) 04/15/18 16:20 Ur Epithelial Cells MODERATE /lpf (FEW) 04/15/18 16:20 Calcium Oxalate Crystal FEW /hpf 04/15/18 16:20 Urine Bacteria 4+ /hpf (NONE SEEN) H 04/15/18 16:20 Phenytoin 12.4 ug/ml (10.0-20.0) 04/15/18 15:37 Carbamazepine 7.3 ug/ml (4.0-12.0) 04/15/18 15:37 - Physical Exam Vitals and I&O: Vital Signs Temp 96.5 F 04/17/18 12:19 Pulse 68 04/17/18 12:19 Resp 18 04/17/18 12:19 BP 130/79 04/17/18 12:19 Pulse Ox 99 04/17/18 12:19 Intake & Output 04/16/18 04/17/18 04/17/18 18:59 06:59 18:59 Intake Total 1850 1150 Output Total 700 Balance 1150 1150 Weight (lbs) 78.925 kg 79.832 kg Intake: Intake, IV Amount 1050 1050 Cefepime 1 gm In Dextrose 50 50 5% 50 ml @ 100 mls/hr IV Q12H [facility] Rx#:[id number] D5-0.45NS 1,000 ml @ 80 1000 1000 mls/hr IV .[id number] [facility] Rx #:[id number] Oral 800 100 Output: Urine 700 Other: # Voids 1 # Bowel Movements 0 1 Stool Characteristics Hard Brown Weight Source Bedscale Bedscale Active Medications: Current Medications Acetaminophen (Tylenol) 650 mg PO Q4H PRN PRN Reason: Pain Or Fever above 101 Stop: 06/14/18 18:56 Al Hydrox/Mg Hydrox/Simethicone (Maalox) 30 ml PO Q6H PRN PRN Reason: Dyspepsia Stop: 06/14/18 18:56 Albuterol Sulfate (Albuterol 2.5mg/3ml Neb Ud) 2.5 mg HHN QIDRT [facility] Stop: 06/14/18 18:59 Last Admin: 04/17/18 11:14 Dose: 2.5 mg Calcium/Vitamin D (Oscal W/Vitamin D) 1 tab PO DAILY [facility] Stop: 06/15/18 08:59 Last Admin: 04/17/18 08:56 Dose: 1 tab Carbamazepine (Tegretol) 400 mg PO BID [facility]; Protocol Stop: 06/15/18 08:59 Last Admin: 04/17/18 08:57 Dose: 400 mg Donepezil HCl (Aricept) 10 mg PO HS [facility] Stop: 06/14/18 20:59 Last Admin: 04/16/18 22:41 Dose: 10 mg Cefepime HCl 1 gm/ Dextrose 50 mls @ 100 mls/hr IV Q12H [facility] Stop: 06/14/18 18:59 Last Admin: 04/17/18 07:02 Dose: 100 mls/hr Dextrose/Sodium Chloride (D5-0.45ns) 1,000 mls @ 80 mls/hr IV .[id number] [facility] Stop: 06/14/18 18:59 Last Admin: 04/17/18 02:18 Dose: 80 mls/hr Ipratropium [place] (Atrovent Neb 0.5mg/2.5ml) 0.5 mg HHN QIDRT [facility] Stop: 06/14/18 18:59 Last Admin: 04/17/18 11:14 Dose: 0.5 mg Lactobacillus Rhamnosus (Culturelle 15b) 1 each PO DAILY [facility] Stop: 06/15/18 08:59 Last Admin: 04/17/18 08:56 Dose: 1 each Levothyroxine Sodium (Synthroid) 0.088 mg PO QDAC [facility] Stop: 06/15/18 07:29 Last Admin: 04/17/18 07:02 Dose: 0.088 mg Lorazepam (Ativan) 1 mg IV Q4H PRN; Protocol PRN Reason: Seizure Stop: 06/14/18 18:59 Magnesium Hydroxide (Milk Of Magnesia) 30 ml PO BID [facility] Stop: 06/16/18 16:59 Ondansetron HCl (Zofran) 4 mg IV Q8H PRN PRN Reason: Nausea / Vomiting Stop: 06/14/18 18:59 Pantoprazole Sodium (Protonix) 40 mg IVP BID [facility] Stop: 06/15/18 08:59 Last Admin: 04/17/18 08:57 Dose: 40 mg Phenytoin (Dilantin) 100 mg PO TID [facility] Stop: 06/14/18 20:59 Last Admin: 04/17/18 09:00 Dose: 100 mg Polyethylene Glycol (Miralax) 17 gm PO DAILY [facility] Stop: 06/15/18 10:14 Last Admin: 04/17/18 08:57 Dose: 17 gm General: congested, obese, appears older HEENT: NC/AT, PERRLA, EOMI Neck: Supple, No thyromegaly Lungs: congested, ronchi Cardiovascular: RRR, Normal S1, Normal S2, without murmur Abdomen: soft, non-tender, globular, positive bowel sound Extremities: excoriation Neurological: no change, disorganized Internal Medicine Assmt/Plan - Assessment Assessment: ASSESSMENT AND PLAN: Abdominal pain of unclear etiology, urinary tract infection e coli, intractable vomiting, hypertension, gastroesophageal reflux disease, psych disorder, hypercoagulable state, hyponatremia, and hypercholesterolemia. - Plan Plan: Continue the patient on IV hydration and we will follow the patient's urine culture. on iv maxipime We will refer the patient to GI for consult. CT of the abdomen and pelvis are ordered. We will follow the results. We will continue to monitor the patient and monitor setting.
[2018-04-17] MEDS ORDERED: Potassium Chloride 20 mEq ER Tab PO ONE (12:42)
[2018-04-17] MEDS: Magnesium Hydroxide (MOM) 30 mL UDC PO SCH (16:31)
[2018-04-17] MEDS ORDERED: cefTRIAXone 1 GM in Sodium Chloride 0.9% 50 ML IV SCH (21:00)
[2018-04-18] MEDS: D5-0.45NS 1,000 ML IV SCH (06:12)
[2018-04-18 06:21] LABS: ANION GAP 10.7 (7.0-16.0); BUN - UREA NITROGEN 9 mg/dL (7-25); CALCIUM SERUM 8.7 mg/dL (8.6-10.3); CARBON DIOXIDE 28.2 mEq/L (21.0-31.0); CHLORIDE 100 mEq/L (98-107); CREATININE - SERUM 0.7 mg/dL (0.6-1.2); GFR AFRICAN-AMERICAN > 60.0 ml/min (>90); GFR NON AFRICAN-AMERICAN > 60.0 ml/min; GLUCOSE 102 mg/dL (70-105); MAGNESIUM 2.1 mg/dL (1.9-2.7); POTASSIUM SERUM 3.9 mEq/L (3.5-5.1); SODIUM SERUM 135 mEq/L (136-145)
[2018-04-18] MEDS: Albuterol Nebulizer 2.5mg/3mL HHN SCH ×3 (07:00→15:01)
[2018-04-18] MEDS: Ipratropium Neb 0.5 mg/2.5 mL UD HHN SCH ×3 (07:00→15:01)
[2018-04-18] MEDS: POLYETHYLENE GLYCOL 3350 17 GM PACK PO SCH (08:32)
[2018-04-18] MEDS: Lactobacillus Rhamnosus GG 15 Billion CFU CAP.SPRINK PO SCH (08:32)
[2018-04-18] MEDS: Magnesium Hydroxide (MOM) 30 mL UDC PO SCH (08:32)
[2018-04-18] MEDS: Levothyroxine 0.088 Mg Tab PO SCH ×2 (08:33→09:57)
[2018-04-18] MEDS: Calcium Carb/Vit D 500 mg/200 U Tab PO SCH (08:34)
--- NOTE | 2018-04-18 11:38 | GI Progress Note ---
Subjective - Review of Systems Service Date: 04/18/18 Events since last encounter: No events Subjective: No abd pain Objective - Results Result Diagrams: 04/17/18 05:59 04/18/18 05:55 Recent Labs: Laboratory Last Values WBC 7.4 Th/cmm (4.8-10.8) 04/17/18 05:59 RBC 4.21 Mil/cmm (3.80-5.10) 04/17/18 05:59 Hgb 13.4 gm/dL (12-16) 04/17/18 05:59 Hct 40.3 % (41.0-60) L 04/17/18 05:59 MCV 95.7 fl (81-100) 04/17/18 05:59 MCH 31.7 pg (27.0-31.0) H 04/17/18 05:59 MCHC Differential 33.1 pg (28.0-36.0) 04/17/18 05:59 RDW 12.6 % (11.5-20.0) 04/17/18 05:59 Plt Count 296 Th/cmm (150-400) 04/17/18 05:59 MPV 7.4 fl 04/17/18 05:59 Neutrophils % 71.5 % (40.0-80.0) 04/17/18 05:59 Lymphocytes % 18.2 % (20.0-50.0) L 04/17/18 05:59 Monocytes % 9.8 % (2.0-10.0) 04/17/18 05:59 Eosinophils % 0.1 % (0.0-5.0) 04/17/18 05:59 Basophils % 0.4 % (0.0-2.0) 04/17/18 05:59 PT 10.0 SECONDS (9.5-11.5) 04/17/18 05:59 INR 0.96 (0.5-1.4) 04/17/18 05:59 PTT (Actin FS) 28.3 SECONDS (26.0-38.0) 04/17/18 05:59 Sodium 135 mEq/L (136-145) L 04/18/18 05:55 Potassium 3.9 mEq/L (3.5-5.1) 04/18/18 05:55 Chloride 100 mEq/L (98-107) 04/18/18 05:55 Carbon Dioxide 28.2 mEq/L (21.0-31.0) 04/18/18 05:55 Anion Gap 10.7 (7.0-16.0) 04/18/18 05:55 BUN 9 mg/dL (7-25) 04/18/18 05:55 Creatinine 0.7 mg/dL (0.6-1.2) 04/18/18 05:55 Est GFR ( Amer) > 60.0 ml/min (>90) 04/18/18 05:55 Est GFR (Non-Af Amer) > 60.0 ml/min 04/18/18 05:55 BUN/Creatinine Ratio 12.9 04/18/18 05:55 Glucose 102 mg/dL (70-105) 04/18/18 05:55 Calcium 8.7 mg/dL (8.6-10.3) 04/18/18 05:55 Magnesium 2.1 mg/dL (1.9-2.7) 04/18/18 05:55 Total Bilirubin 0.3 mg/dL (0.3-1.0) 04/15/18 15:37 AST 16 U/L (13-39) 04/15/18 15:37 ALT 20 U/L (7-52) 04/15/18 15:37 Alkaline Phosphatase 87 U/L (34-104) 04/15/18 15:37 Creatine Kinase 17 U/L (30-223) L 04/15/18 15:37 Troponin I 0.02 ng/mL (0.01-0.05) 04/15/18 15:37 B-Natriuretic Peptide 36.4 pg/mL (5.0-100.0) 04/17/18 05:59 Total Protein 7.3 gm/dL (6.0-8.3) 04/15/18 15:37 Albumin 3.6 gm/dL (3.7-5.3) L 04/15/18 15:37 Globulin 3.7 gm/dL 04/15/18 15:37 Albumin/Globulin Ratio 1.0 (1.0-1.8) 04/15/18 15:37 Triglycerides 100 mg/dL (<150) 04/15/18 15:37 Cholesterol 316 mg/dL (<200) H 04/15/18 15:37 LDL Cholesterol Direct 237 mg/dL (75-193) H 04/15/18 15:37 HDL Cholesterol 64 mg/dL (23-92) 04/15/18 15:37 Amylase 75 U/L (29-103) 04/15/18 15:37 Lipase 33 U/L (11-82) 04/15/18 15:37 Urine Source CLEAN C 04/15/18 16:20 Urine Color YELLOW 04/15/18 16:20 Urine Clarity HAZY (CLEAR) 04/15/18 16:20 Urine pH 6.0 (4.6 - 8.0) 04/15/18 16:20 Ur Specific [place] 1.025 (1.005-1.030) 04/15/18 16:20 Urine Protein TRACE mg/dL (NEGATIVE) 04/15/18 16:20 Urine Glucose (UA) NEGATIVE mg/dL (NEGATIVE) 04/15/18 16:20 Urine Ketones TRACE mg/dL (NEGATIVE) 04/15/18 16:20 Urine Blood MODERATE (NEGATIVE) H 04/15/18 16:20 Urine Nitrate POSITIVE (NEGATIVE) H 04/15/18 16:20 Urine Bilirubin NEGATIVE (NEGATIVE) 04/15/18 16:20 Urine Urobilinogen 0.2 E.U./dL (0.2 - 1.0) 04/15/18 16:20 Ur Leukocyte Esterase NEGATIVE (NEGATIVE) 04/15/18 16:20 Urine RBC 5-10 /hpf (0-5) H 04/15/18 16:20 Urine WBC 2-5 /hpf (0-5) 04/15/18 16:20 Ur Epithelial Cells MODERATE /lpf (FEW) 04/15/18 16:20 Calcium Oxalate Crystal FEW /hpf 04/15/18 16:20 Urine Bacteria 4+ /hpf (NONE SEEN) H 04/15/18 16:20 Phenytoin 12.4 ug/ml (10.0-20.0) 04/15/18 15:37 Carbamazepine 7.3 ug/ml (4.0-12.0) 04/15/18 15:37 - Physical Exam Vitals and I&O: Vital Signs Temp 96.1 F 04/18/18 11:24 Pulse 67 04/18/18 11:24 Resp 18 04/18/18 11:24 BP 139/79 04/18/18 11:24 Pulse Ox 96 04/18/18 11:24 Intake & Output 04/17/18 04/18/18 04/18/18 18:59 06:59 18:59 Intake Total 1600 1050 Balance 1600 1050 Weight (lbs) 79.832 kg 79.923 kg Intake: Intake, IV Amount 1000 1050 D5-0.45NS 1,000 ml @ 80 1000 1000 mls/hr IV .[id number] [facility] Rx #:[id number] cefTRIAXone 1 gm In 50 Sodium Chloride 0.9% 50 ml @ 100 mls/hr IV Q24H [facility] Rx#:[id number] Oral 600 Other: # Voids 3 2 # Bowel Movements 1 1 Stool Characteristics Soft Soft Brown Brown Weight Source Bedscale Bedscale Active Medications: Current Medications Acetaminophen (Tylenol) 650 mg PO Q4H PRN PRN Reason: Pain Or Fever above 101 Stop: 06/14/18 18:56 Al Hydrox/Mg Hydrox/Simethicone (Maalox) 30 ml PO Q6H PRN PRN Reason: Dyspepsia Stop: 06/14/18 18:56 Albuterol Sulfate (Albuterol 2.5mg/3ml Neb Ud) 2.5 mg HHN QIDRT [facility] Stop: 06/14/18 18:59 Last Admin: 04/18/18 10:50 Dose: 2.5 mg Calcium/Vitamin D (Oscal W/Vitamin D) 1 tab PO DAILY [facility] Stop: 06/15/18 08:59 Last Admin: 04/18/18 08:34 Dose: 1 tab Carbamazepine (Tegretol) 400 mg PO BID [facility]; Protocol Stop: 06/15/18 08:59 Last Admin: 04/18/18 08:34 Dose: 400 mg Donepezil HCl (Aricept) 10 mg PO HS [facility] Stop: 06/14/18 20:59 Last Admin: 04/17/18 20:50 Dose: 10 mg Dextrose/Sodium Chloride (D5-0.45ns) 1,000 mls @ 80 mls/hr IV .[id number] [facility] Stop: 06/14/18 18:59 Last Admin: 04/18/18 06:12 Dose: 80 mls/hr Ceftriaxone Sodium 1 gm/ (Sodium Chloride) 50 mls @ 100 mls/hr IV Q24H [facility] Stop: 06/16/18 20:59 Last Infusion: 04/17/18 21:20 Dose: Infused Ipratropium [place] (Atrovent Neb 0.5mg/2.5ml) 0.5 mg HHN QIDRT [facility] Stop: 06/14/18 18:59 Last Admin: 04/18/18 10:50 Dose: 0.5 mg Lactobacillus Rhamnosus (Culturelle 15b) 1 each PO DAILY [facility] Stop: 06/15/18 08:59 Last Admin: 04/18/18 08:32 Dose: 1 each Levothyroxine Sodium (Synthroid) 0.088 mg PO QDAC [facility] Stop: 06/15/18 07:29 Last Admin: 04/18/18 09:57 Dose: 0.088 mg Lorazepam (Ativan) 1 mg IV Q4H PRN; Protocol PRN Reason: Seizure Stop: 06/14/18 18:59 Magnesium Hydroxide (Milk Of Magnesia) 30 ml PO BID [facility] Stop: 06/16/18 16:59 Last Admin: 04/18/18 08:32 Dose: 30 ml Ondansetron HCl (Zofran) 4 mg IV Q8H PRN PRN Reason: Nausea / Vomiting Stop: 06/14/18 18:59 Pantoprazole Sodium (Protonix) 40 mg IVP BID [facility] Stop: 06/15/18 08:59 Last Admin: 04/18/18 08:32 Dose: 40 mg Phenytoin (Dilantin) 100 mg PO TID [facility] Stop: 06/14/18 20:59 Last Admin: 04/18/18 08:33 Dose: 100 mg Polyethylene Glycol (Miralax) 17 gm PO DAILY [facility] Stop: 06/15/18 10:14 Last Admin: 04/18/18 08:32 Dose: 17 gm General: Alert, No acute distress HEENT: Atraumatic Cardiovascular: Regular rate, Normal S1, Normal S2 Lungs: Clear to auscultation Abdomen: Bowel sounds, Soft, no Tender, no Distended Assessment/Plan - Assessment Assessment: 1. FECAL IMPACTION, - Plan Plan: 1. FECAL IMPACTION, BETTER. Continue LAXATIVES. ORAL DIET TOLerated.
[2018-04-18] MEDS ORDERED: Sulfamethoxazole/TMP 800/160mg Tab PO SCH (17:00)
--- NOTE | 2018-04-18 17:26 | Discharge Summary ---
DATE OF DISCHARGE: 04/18/2018 CHIEF COMPLAINT: Vomiting, abdominal pain. FINAL DIAGNOSES: Abdominal pain, urinary tract infection, intractable vomiting, which is improved, hypertension, GERD, hypercoagulable state, hypercholesterolemia, obesity, psych disorder. HISTORY: This is a 63-year-old female well known to my service with hypertension, GERD, psych disorder, , vomiting throughout the day. The patient was admitted to the ER. PHYSICAL EXAMINATION: VITAL SIGNS: Blood pressure 139/70, respiration 18, pulse is 72. GENERAL: Elderly female, appears her stated age. NECK: Supple. No mass. LUNGS: Equal breath sounds, few rhonchi. HEART: Regular rate and rhythm with systolic ejection murmur. ABDOMEN: Soft, globular. EXTREMITIES: Positive excoriation. HOSPITAL COURSE: The patient was admitted to medical floor, continued on IV hydration and IV antibiotic. Urine culture was positive for E. coli. The patient was referred to GI and noted to have infection. The patient was given a laxative. The patient cleared for discharge. CONDITION ON DISCHARGE: Fair. DISCHARGE INSTRUCTIONS: The patient to continue on p.o. antibiotic. The patient will be followed closely at the residential facility. JOB# [id number]
== END 2018-04-18 16:30 | DRG 871 ==
LOC: ER 14:42 → TELE 18:52
PROVIDERS: ADMIT Internal Medicine; ATTEND Internal Medicine
DX: A41.9 Sepsis, unspecified organism (principal); R53.2 Functional quadriplegia; N39.0 Urinary tract infection, site not specified; E87.1 Hypo-osmolality and hyponatremia; D68.59 Other primary thrombophilia; D68.9 Coagulation defect, unspecified; G93.40 Encephalopathy, unspecified; I10 Essential (primary) hypertension; K21.9 Gastro-esophageal reflux disease without esophagitis; E78.5 Hyperlipidemia, unspecified; J44.9 Chronic obstructive pulmonary disease, unspecified; M19.90 Unspecified osteoarthritis, unspecified site; F03.90 Unspecified dementia, unspecified severity, without behavioral disturbance, psychotic disturbance, mood disturbance, and anxiety; K52.9 Noninfective gastroenteritis and colitis, unspecified; I25.9 Chronic ischemic heart disease, unspecified; G40.909 Epilepsy, unspecified, not intractable, without status epilepticus; E03.9 Hypothyroidism, unspecified; K56.41 Fecal impaction; E78.00 Pure hypercholesterolemia, unspecified; B96.20 Unspecified Escherichia coli [E. coli] as the cause of diseases classified elsewhere; F29 Unspecified psychosis not due to a substance or known physiological condition; E66.9 Obesity, unspecified; Z68.29 Body mass index [BMI] 29.0-29.9, adult; Z88.5 Allergy status to narcotic agent; Z88.8 Allergy status to other drugs, medicaments and biological substances; Z82.49 Family history of ischemic heart disease and other diseases of the circulatory system; Z91.018 Allergy to other foods
CPT/HCPCS: 36415-UA; 71045-TC; 74000-TC; 80048-TC; 80053-TC; 80061-TC; 80156-TC; 80185-TC; 81001-TC; 82150-TC; 82550-TC; 83690-TC; 83735-TC; 83880-TC; 84484-TC; 85025-TC; 85610-TC; 87086-90; 90779; 93005; 94640; 94760; 96375; C9113; J0692; J0696; J2405; J7613; Z7610

== ENCOUNTER 2018-10-26 15:05 | Inpatient (IN) | payer MEDICARE, MEDICAID ==
--- NOTE | 2018-10-26 15:34 | ED Physician Chart ---
ED Chief Complaint/HPI - Patient Information Date Seen:: 10/26/18 Time Seen:: 15:10 Chief Complaint:: Pt reportedly was noticed to have melena. History of Present Illness:: Brought in by ambulance from nursing facility because pt was noticed to have melena. Pt appears to be comfortable and stable. Pt reportedly has h/o dementia and is unable to cooperate fully; thus, H & P are limited. Info is primarily from review of limited transfer documents. Allergies:: Allergies Allergy/AdvReac Type Severity Reaction Status Date / Time aspirin Allergy Verified 04/15/18 14:57 citalopram Allergy Verified 04/15/18 14:57 codeine Allergy Verified 04/15/18 14:57 dimenhydrinate Allergy Verified 04/15/18 14:57 diphenhydramine HCl Allergy Verified 04/15/18 14:57 [From Benadryl] lorazepam Allergy Verified 04/15/18 14:57 pioglitazone Allergy Verified 04/15/18 14:57 tomato Allergy Verified 04/15/18 14:57 venlafaxine Allergy Verified 04/15/18 14:57 Vitals:: Vital Signs - 8 hr 10/26/18 15:23 Temp 98.0 F HR 78 RR 16 BP 144/77 O2 Sat % 96 Historian:: Medical Records (from transferring facility.) Family MD/PCP:: Dr. Alaniz LMP:: postmenopausal. 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 Surgical History: other (Pt does not cooperate to provide info on Surgical Hx.) Psychiatricy History: Depression, Dementia Medication: Reviewed Family Medical History - Family Member Mother History Unknown: Yes Ethnicity: Unknown Living Status: Unknown Hx Family Cancer: No Hx Family Coronary Artery Disease: No Hx Family Congestive Heart Failure: No Hx Family Hypertension: Yes Hx Family Stroke: No Hx Family Diabetes: Yes Hx Family Seizures: No Hx Family Dementia: No Hx Family AIDS: No Hx Family HIV: No Hx Family COPD: No Hx Family Hepatitis: No Hx Family Psychiatric Problems: No Hx Family Tuberculosis: No ED Physical Exam - Physical Examination General/Constitutional: Awake, Well-developed, well-nourished (female), Alert, No distress, Non-toxic appearing Other Gen/Cons comments:: Breathes comfortably, responds to tactile stimuli. Pt is essentially nonverbal. Head: Atraumatic Eyes: Lids, conjuctiva normal, PERRL, EOMI Skin: Well hydrated, No lymphadenopathy ENMT: External ears, nose nl, Nasal exam nl, Oropharynx nl Neck: Nontender, No nuchal rigidity, No stridor Respiratory: Nl effort/Exclusion, Clear to Auscultation, No Wheeze/Rhonchi/Rales Cardio Vascular: RRR, No murmur, gallop, rubs GI: No tenderness/rebounding/guarding, No organomegaly, Normal BS's, Nondistended, No mass/bruits Other GI comments:: Obese but soft. Rectal exam performed with female nurse [place]: No stool. Unremarkable. Extremities: No edema Other Neuro/Psych comments:: Alert and responds to voice and tactile stimuli. Pt is essentially nonverbal. Spontaneous movements noticed in all 4 extremities. Pt does not cooperate for full neurological exam. ED Labs/Radiology/EKG Results - Lab Results Results: Laboratory Results - last 24 hr 10/26/18 10/26/18 15:45 16:00 WBC 9.3 R BC 4.00 Hgb 12.9 Hct 38.6 L MCV 96.5 MCH 32.4 H MCHC Differential 33.6 RDW 12.6 Plt Count 329 MPV 7.2 Neutrophils % 76.8 Lymphocytes % 14.1 L Monocytes % 8.1 Eosinophils % 0.2 Basophils % 0.8 PT 9.8 INR 0.94 PTT (Actin FS) 25.7 L Laboratory Last Values WBC 9.3 Th/cmm (4.8-10.8) 10/26/18 15:45 RBC 4.00 Mil/cmm (3.80-5.10) 10/26/18 15:45 Hgb 12.9 gm/dL (12-16) 10/26/18 15:45 Hct 38.6 % (41.0-60) L 10/26/18 15:45 MCV 96.5 fl (81-100) 10/26/18 15:45 MCH 32.4 pg (27.0-31.0) H 10/26/18 15:45 MCHC Differential 33.6 pg (28.0-36.0) 10/26/18 15:45 RDW 12.6 % (11.5-20.0) 10/26/18 15:45 Plt Count 329 Th/cmm (150-400) 10/26/18 15:45 MPV 7.2 fl 10/26/18 15:45 Neutrophils % 76.8 % (40.0-80.0) 10/26/18 15:45 Lymphocytes % 14.1 % (20.0-50.0) L 10/26/18 15:45 Monocytes % 8.1 % (2.0-10.0) 10/26/18 15:45 Eosinophils % 0.2 % (0.0-5.0) 10/26/18 15:45 Basophils % 0.8 % (0.0-2.0) 10/26/18 15:45 PT 9.8 SECONDS (9.5-11.5) 10/26/18 16:00 INR 0.94 (0.5-1.4) 10/26/18 16:00 PTT (Actin FS) 25.7 SECONDS (26.0-38.0) L 10/26/18 16:00 Sodium 136 mEq/L (136-145) 10/26/18 16:00 Potassium 4.1 mEq/L (3.5-5.1) 10/26/18 16:00 Chloride 102 mEq/L (98-107) 10/26/18 16:00 Carbon Dioxide 25.3 mEq/L (21.0-31.0) 10/26/18 16:00 Anion Gap 12.8 (7.0-16.0) 10/26/18 16:00 BUN 23 mg/dL (7-25) 10/26/18 16:00 Creatinine 1.0 mg/dL (0.6-1.2) 10/26/18 16:00 Est GFR ( Amer) > 60.0 ml/min (>90) 10/26/18 16:00 Est GFR (Non-Af Amer) 59.5 ml/min 10/26/18 16:00 BUN/Creatinine Ratio 23.0 10/26/18 16:00 Glucose 102 mg/dL (70-105) 10/26/18 16:00 Calcium 8.6 mg/dL (8.6-10.3) 10/26/18 16:00 Total Bilirubin 0.2 mg/dL (0.3-1.0) L 10/26/18 16:00 AST 17 U/L (13-39) 10/26/18 16:00 ALT 21 U/L (7-52) 10/26/18 16:00 Alkaline Phosphatase 105 U/L (34-104) H 10/26/18 16:00 Total Protein 6.4 gm/dL (6.0-8.3) 10/26/18 16:00 Albumin 3.4 gm/dL (3.7-5.3) L 10/26/18 16:00 Globulin 3.0 gm/dL 10/26/18 16:00 Albumin/Globulin Ratio 1.1 (1.0-1.8) 10/26/18 16:00 ED Septic Shock - . Is Septic Shock (SBP<90, OR Lactate>4 mmol\L) present?: No - <6hrs of presentation: Vital Signs: Vital Signs - 8 hr 10/26/18 15:23 Temp 98.0 F HR 78 RR 16 BP 144/77 O2 Sat % 96 ED Reassessment (Disposition) - Reassessment Reassessment:: 1813 Pt has been repeatedly evaluated. Pt remains stable without signs of active G.I. bleeding. Remaining lab results are still pending. 1899 Case was discussed with Dr. Alaniz with pertinent info reviewed. Pt is to be admitted to [facility] under his care. Reassessment Condition:: Improved - Diagnosis Diagnosis:: H/O melena, r/o upper gastrointestinal bleeding. Stable. Dementia. HTN. Stable. - Patient Disposition Admitted to:: Med/Surg Admitting Medical Physician:: Burton Alaniz Time:: 19:05 Condition at Disposition:: Stable, Improved
[2018-10-26 16:18] LABS: % BASOPHILS 0.8 % (0.0-2.0); % EOSINOPHILS 0.2 % (0.0-5.0); % LYMPHOCYTES 14.1 % (20.0-50.0); % MONOCYTES 8.1 % (2.0-10.0); % NEUTROPHILS 76.8 % (40.0-80.0); BASOPHILE ABSOLUTE 0.1 Th/cumm (0-0.2); HEMATOCRIT 38.6 % (41.0-60); HEMOGLOBIN 12.9 gm/dL (12-16); LYMPHOCYTE ABSOLUTE 1.3 Th/cmm (1.5-3.0); MEAN CELL VOLUME 96.5 fl (81-100); MEAN CORPUSCULAR HEMOGLOBIN 32.4 pg (27.0-31.0); MEAN CORPUSCULAR HGB CONC 33.6 pg (28.0-36.0); MONOCYTE ABSOLUTE 0.8 Th/cmm (0.3-1.0); NEUTROPHILE ABSOLUTE 7.1 Th/cmm (1.8-8.0); PLATELET COUNT 329 Th/cmm (150-400); RED CELL DISTRIBUTION WIDTH 12.6 % (11.5-20.0); WHITE BLOOD COUNT 9.3 Th/cmm (4.8-10.8)
[2018-10-26 16:49] LABS: INR 0.94 (0.5-1.4)
[2018-10-26 16:51] LABS: ALB/GLOB RATIO 1.1 (1.0-1.8); ALBUMIN 3.4 gm/dL (3.7-5.3); ALKALINE PHOSPHATASE 105 U/L (34-104); ANION GAP 12.8 (7.0-16.0); BILIRUBIN,TOTAL 0.2 mg/dL (0.3-1.0); BUN - UREA NITROGEN 23 mg/dL (7-25); CALCIUM SERUM 8.6 mg/dL (8.6-10.3); CARBON DIOXIDE 25.3 mEq/L (21.0-31.0); CHLORIDE 102 mEq/L (98-107); GFR AFRICAN-AMERICAN > 60.0 ml/min (>90); GFR NON AFRICAN-AMERICAN 59.5 ml/min; GLUCOSE 102 mg/dL (70-105); POTASSIUM SERUM 4.1 mEq/L (3.5-5.1); SGOT 17 U/L (13-39); SGPT/ALT 21 U/L (7-52); SODIUM SERUM 136 mEq/L (136-145); TOTAL PROTEIN,SERUM 6.4 gm/dL (6.0-8.3)
[2018-10-26] MEDS ORDERED: Maalox 30 mL Cup PO PRN (19:14)
[2018-10-26] MEDS ORDERED: Ipratropium Neb 0.5 mg/2.5 mL UD HHN PRN (19:14)
[2018-10-26] MEDS ORDERED: Albuterol Nebulizer 2.5mg/3mL HHN PRN (19:14)
--- NOTE | 2018-10-26 20:33 | History & Physical ---
ADMIT DATE: 10/26/2018 CHIEF COMPLAINT: Blood in stool, generalized weakness. HISTORY OF PRESENT ILLNESS: This is a 63-year-old female with a history of hypertension, hypothyroidism, dementia, and peptic ulcer disease, admitted from nursing facility secondary to not feeling well. The patient is requiring more help with activities of daily living and noted to have blood in the stool, black tarry at times. The patient is a poor historian. PAST MEDICAL HISTORY: As mentioned in the history of present illness. PAST SURGICAL HISTORY: Unable to obtain with the patient. ALLERGIES: ASPIRIN, CITALOPRAM, CODEINE, BENADRYL, LORAZEPAM, ____ VENLAFAXINE. MEDICATIONS: The patient is on aspirin, ranitidine, calcium, Tegretol, donepezil, Synthroid, Dilantin, MiraLax. FAMILY HISTORY: Noncontributory. SOCIAL HISTORY: The patient lives in a detention. The patient is requiring 24 total care. REVIEW OF SYSTEMS: This is limited secondary to pain, comatose state. We will try to obtain more detailed review of systems at a later date by talking to family members, her sister, Josefina Costello at [phone]. We will also try to get information from nursing staff at [facility] at [phone]. PHYSICAL EXAMINATION: VITAL SIGNS: Blood pressure 135/77, respirations 16, pulse 69, and temperature 98.2. GENERAL: Elderly female, appears her stated age, mildly obese. NECK: Supple. No mass. LUNGS: Decreased breath sounds, few rhonchi. HEART: Regular rate and rhythm. Systolic ejection murmur. ABDOMEN: Soft, globular. EXTREMITIES: Positive excoriation. NEUROLOGIC: Limited. LABORATORY DATA: WBC 9.3, hemoglobin 12, platelets 329. INR 0.9. Sodium 136, potassium 4.1, BUN 33 and creatinine 1.0. Total bilirubin 0.2, alkaline phosphatase 105, albumin 3.4. ASSESSMENT AND PLAN: Black tarry stool/melena/lower gastrointestinal bleeding, abdominal pain with distention, dementia, seizure disorder, psych disorder, history of peptic ulcer disease. Continue the patient on IV hydration and proton pump inhibitor. We will monitor the patient's hemoglobin and hematocrit. We will transfuse as needed. We will refer the patient to GI for endoscopy and to also perform ultrasound. We will check the patient's urinalysis. We will continue to monitor the patient closely. [facility]# [id number]
[2018-10-26] MEDS: D5-0.9%NS 1,000 ML IV SCH (22:13)
[2018-10-27 00:31] VITALS: BP 123/73
[2018-10-27 07:49] LABS: URINE SOURCE CATH
[2018-10-27 08:00] LABS: URINE BILIRUBIN NEGATIVE (NEGATIVE); URINE BLOOD SMALL (NEGATIVE); URINE GLUCOSE (UA) NEGATIVE (NEGATIVE); URINE KETONE NEGATIVE (NEGATIVE); URINE LEUKOCYTE ESTERASE NEGATIVE (NEGATIVE); URINE MICROSCOPIC INDICATED? YES; URINE NITRATE NEGATIVE (NEGATIVE); URINE PH 7.5 (4.6 - 8.0); URINE PROTEIN NEGATIVE (NEGATIVE); URINE UROBILINOGEN 0.2 E.U./dL (0.2 - 1.0)
[2018-10-27 08:13] LABS: URINE CLARITY CLEAR (CLEAR); URINE COLOR YELLOW
[2018-10-27] MEDS: Pantoprazole 40 mg EC Tab PO SCH ×2 (08:20→16:07)
[2018-10-27] MEDS: POLYETHYLENE GLYCOL 3350 17 GM PACK PO SCH (08:20)
[2018-10-27] MEDS: Levothyroxine 0.088 Mg Tab PO SCH (08:21)
[2018-10-27] MEDS: Calcium Carb/Vit D 500 mg/200 U Tab PO SCH (08:21)
[2018-10-27 08:29] LABS: URINE BACTERIA NONE SEEN /hpf (NONE SEEN); URINE EPITHELIAL CELLS OCCASIONAL /lpf (FEW); URINE WBC 0-2 /hpf (0-5)
--- NOTE | 2018-10-27 09:35 | Diagnostic Imaging Report ---
Abdominal ultrasound HISTORY: Pain Exam is limited due to considerable bowel gas. No focal hepatic lesions are seen. The gallbladder appears normal. No calculi identified. No biliary dilatation. Incomplete visualization of the pancreas due to bowel gas. Right kidney is slightly decreased in size (8.3 x 3.8 x 5.1 cm). No focal lesions. No hydronephrosis. The left kidney is unremarkable. The spleen cannot be well seen due to bowel gas. No other retroperitoneal or intra-abdominal abnormalities. IMPRESSION: 1. Limited exam due to bowel gas 2. Diminished size of the right kidney
--- NOTE | 2018-10-27 12:26 | Internal Medicine Prog Note ---
Internal Medicine Subjective - Subjective Patient seen and examined:: with staff, chart reviewed Patient is:: awake, verbal, interactive, in bed, confused Per staff patient has:: no adverse event, no episodes of fall, poor appetite, confused, tolerating meds Internal Medicine Objective - Results Result Diagrams: 10/26/18 15:45 10/26/18 16:00 Recent Labs: Laboratory Last Values WBC 9.3 Th/cmm (4.8-10.8) 10/26/18 15:45 RBC 4.00 Mil/cmm (3.80-5.10) 10/26/18 15:45 Hgb 12.9 gm/dL (12-16) 10/26/18 15:45 Hct 38.6 % (41.0-60) L 10/26/18 15:45 MCV 96.5 fl (81-100) 10/26/18 15:45 MCH 32.4 pg (27.0-31.0) H 10/26/18 15:45 MCHC Differential 33.6 pg (28.0-36.0) 10/26/18 15:45 RDW 12.6 % (11.5-20.0) 10/26/18 15:45 Plt Count 329 Th/cmm (150-400) 10/26/18 15:45 MPV 7.2 fl 10/26/18 15:45 Neutrophils % 76.8 % (40.0-80.0) 10/26/18 15:45 Lymphocytes % 14.1 % (20.0-50.0) L 10/26/18 15:45 Monocytes % 8.1 % (2.0-10.0) 10/26/18 15:45 Eosinophils % 0.2 % (0.0-5.0) 10/26/18 15:45 Basophils % 0.8 % (0.0-2.0) 10/26/18 15:45 PT 9.8 SECONDS (9.5-11.5) 10/26/18 16:00 INR 0.94 (0.5-1.4) 10/26/18 16:00 PTT (Actin FS) 25.7 SECONDS (26.0-38.0) L 10/26/18 16:00 Sodium 136 mEq/L (136-145) 10/26/18 16:00 Potassium 4.1 mEq/L (3.5-5.1) 10/26/18 16:00 Chloride 102 mEq/L (98-107) 10/26/18 16:00 Carbon Dioxide 25.3 mEq/L (21.0-31.0) 10/26/18 16:00 Anion Gap 12.8 (7.0-16.0) 10/26/18 16:00 BUN 23 mg/dL (7-25) 10/26/18 16:00 Creatinine 1.0 mg/dL (0.6-1.2) 10/26/18 16:00 Est GFR ( Amer) > 60.0 ml/min (>90) 10/26/18 16:00 Est GFR (Non-Af Amer) 59.5 ml/min 10/26/18 16:00 BUN/Creatinine Ratio 23.0 10/26/18 16:00 Glucose 102 mg/dL (70-105) 10/26/18 16:00 Calcium 8.6 mg/dL (8.6-10.3) 10/26/18 16:00 Total Bilirubin 0.2 mg/dL (0.3-1.0) L 10/26/18 16:00 AST 17 U/L (13-39) 10/26/18 16:00 ALT 21 U/L (7-52) 10/26/18 16:00 Alkaline Phosphatase 105 U/L (34-104) H 10/26/18 16:00 Total Protein 6.4 gm/dL (6.0-8.3) 10/26/18 16:00 Albumin 3.4 gm/dL (3.7-5.3) L 10/26/18 16:00 Globulin 3.0 gm/dL 10/26/18 16:00 Albumin/Globulin Ratio 1.1 (1.0-1.8) 10/26/18 16:00 Urine Source CATH 10/27/18 07:30 Urine Color YELLOW 10/27/18 07:30 Urine Clarity CLEAR (CLEAR) 10/27/18 07:30 Urine pH 7.5 (4.6 - 8.0) 10/27/18 07:30 Ur Specific [place] 1.010 (1.005-1.030) 10/27/18 07:30 Urine Protein NEGATIVE mg/dL (NEGATIVE) 10/27/18 07:30 Urine Glucose (UA) NEGATIVE mg/dL (NEGATIVE) 10/27/18 07:30 Urine Ketones NEGATIVE mg/dL (NEGATIVE) 10/27/18 07:30 Urine Blood SMALL (NEGATIVE) H 10/27/18 07:30 Urine Nitrate NEGATIVE (NEGATIVE) 10/27/18 07:30 Urine Bilirubin NEGATIVE (NEGATIVE) 10/27/18 07:30 Urine Urobilinogen 0.2 E.U./dL (0.2 - 1.0) 10/27/18 07:30 Ur Leukocyte Esterase NEGATIVE (NEGATIVE) 10/27/18 07:30 Urine RBC 2-5 /hpf (0-5) 10/27/18 07:30 Urine WBC 0-2 /hpf (0-5) 10/27/18 07:30 Ur Epithelial Cells OCCASIONAL /lpf (FEW) 10/27/18 07:30 Urine Bacteria NONE SEEN /hpf (NONE SEEN) 10/27/18 07:30 Blood Type O POSITIVE 10/26/18 16:00 Antibody Screen NEGATIVE 10/26/18 16:00 - Physical Exam Vitals and I&O: Vital Signs Temp 96.7 F 10/27/18 12:00 Pulse 63 10/27/18 12:00 Resp 18 10/27/18 12:00 BP 127/73 10/27/18 12:00 Pulse Ox 98 10/27/18 12:00 Intake & Output 10/26/18 10/27/18 10/27/18 18:59 06:59 18:59 Weight (lbs) 73.482 kg 73.482 kg Other: # Voids 3 # Bowel Movements 0 Weight Source Bedscale Bedscale Active Medications: Current Medications Acetaminophen (Tylenol) 650 mg PO Q4H PRN PRN Reason: Pain Or Fever above 101 Stop: 12/25/18 19:13 Al Hydrox/Mg Hydrox/Simethicone (Maalox) 30 ml PO Q6H PRN PRN Reason: Dyspepsia Stop: 12/25/18 19:13 Albuterol Sulfate (Albuterol 2.5mg/3ml Neb Ud) 2.5 mg HHN Q2HRT PRN PRN Reason: Shortness of Breath or Wheeze Stop: 12/25/18 19:13 Calcium/Vitamin D (Oscal W/Vitamin D) 1 tab PO DAILY [facility] Stop: 12/26/18 08:59 Last Admin: 10/27/18 08:21 Dose: 1 tab Carbamazepine (Tegretol) 400 mg PO BID [facility]; Protocol Stop: 12/26/18 08:59 Last Admin: 10/27/18 08:23 Dose: 400 mg Donepezil HCl (Aricept) 10 mg PO HS [facility] Stop: 12/25/18 20:59 Last Admin: 10/26/18 22:13 Dose: 10 mg Dextrose/Sodium Chloride (D5-0.9%Ns) 1,000 mls @ 80 mls/hr IV .[id number] [facility] Stop: 12/25/18 19:14 Last Admin: 10/26/18 22:13 Dose: 80 mls/hr Ipratropium [place] (Atrovent Neb 0.5mg/2.5ml) 0.5 mg HHN Q2HRT PRN PRN Reason: Shortness of Breath or Wheeze Stop: 12/25/18 19:13 Levothyroxine Sodium (Synthroid) 0.088 mg PO QDAC [facility] Stop: 12/26/18 07:29 Last Admin: 10/27/18 08:21 Dose: 0.088 mg Ondansetron HCl (Zofran) 4 mg IV Q8H PRN PRN Reason: Nausea / Vomiting Stop: 12/25/18 19:13 Pantoprazole Sodium (Protonix) 40 mg PO BID [facility] Stop: 12/26/18 08:59 Last Admin: 10/27/18 08:20 Dose: 40 mg Phenytoin (Dilantin) 100 mg PO TID [facility] Stop: 12/25/18 20:59 Last Admin: 10/27/18 08:20 Dose: 100 mg Polyethylene Glycol (Miralax) 17 gm PO DAILY [facility] Stop: 12/26/18 08:59 Last Admin: 10/27/18 08:20 Dose: 17 gm Zolpidem Tartrate (Ambien) 10 mg PO HS PRN PRN Reason: Insomnia Stop: 12/25/18 19:13 General: demented HEENT: NC/AT, PERRLA, EOMI Neck: Supple, No JVD Lungs: rales Cardiovascular: RRR, Normal S1, Normal S2, without murmur Abdomen: soft, non-tender, non-distended, positive bowel sound Extremities: excoriation Neurological: no change Internal Medicine Assmt/Plan - Assessment Assessment: ASSESSMENT AND PLAN: Black tarry stool/melena/lower gastrointestinal bleeding, abdominal pain with distention, dementia, seizure disorder, psych disorder, history of peptic ulcer disease. - Plan Plan: PLAN: Continue the patient on IV hydration and proton pump inhibitor. We will monitor the patient's hemoglobin and hematocrit. We will transfuse as needed. We will refer the patient to GI for endoscopy and to also perform ultrasound. We will check the patient's urinalysis. We will continue to monitor the patient closely.
[2018-10-27] MEDS: D5-0.9%NS 1,000 ML IV SCH ×2 (13:13→20:47)
--- NOTE | 2018-10-27 15:22 | History & Physical ---
ADMIT DATE: 10/27/2018 REQUESTING PHYSICIAN: Dr. Alaniz. REASON FOR CONSULTATION: GI bleed. Thank you for asking me to see this patient in consultation. HISTORY OF PRESENT ILLNESS: This is a 63-year-old female with a history of hypertension, hypothyroidism, dementia, and history of peptic ulcer disease, who was admitted from the nursing facility for not feeling well and generalized weakness. The patient was noted to have hematemesis as well as dark tarry stools. She is currently not having any active bleeding; however, she is fairly nonverbal and cannot assess what her symptoms really have been at this time. GI has been consulted for possible endoscopy for further evaluation. PAST MEDICAL HISTORY: As mentioned above. MEDICATIONS: Have been reviewed. FAMILY HISTORY: Noncontributory for GI disease. SOCIAL HISTORY: She lives in a nursing facility. REVIEW OF SYSTEMS: Unable to obtain given the patient's current state. PHYSICAL EXAMINATION: VITAL SIGNS: Blood pressure 135/77, respiratory rate of 16, pulse of 69, temperature of 98.2. GENERAL: She is in no acute distress. HEENT: Normocephalic, atraumatic. PERRLA positive. LUNGS: Clear bilaterally. No wheezes, rales or rhonchi. HEART: Regular rate and rhythm, normal S1, S2. ABDOMEN: Soft, nontender. Bowel sounds are positive. EXTREMITIES: Show no lower extremity edema. PSYCHIATRIC: Could not assess. NEUROLOGIC: Grossly intact. LABORATORY DATA: Hemoglobin of 12, platelets of 329,000. Potassium 4.1, BUN 33, creatinine 1.0. ASSESSMENT AND PLAN: This is a 63-year-old female with dementia and fairly nonverbal with history of GI bleed in the past, who presents with melanotic stools, elevated BUN to creatinine ratio. 1. Gastrointestinal bleed. 2. Concern for possible upper gastrointestinal versus lower gastrointestinal source. 3. History of peptic ulcer disease. 4. History of dementia. Differential for presentation include most likely erosive esophagitis versus peptic ulcer disease versus possible GI malignancy. I would recommend performing an upper endoscopy as this is most likely going to help delineate management and help with possibly a diagnosis: If, however, her EGD is relatively unremarkable, we will discuss with family about necessity of colonoscopy as well as when her last colonoscopy was. For now, keep the patient on clear liquid diet, n.p.o. after midnight, plans for endoscopy with further recommendations thereafter. Thank you for allowing us to participate in this patient's care. JOB# [id number]
[2018-10-28] MEDS: D5-0.9%NS 1,000 ML IV SCH ×3 (02:28→21:19)
[2018-10-28 06:34] LABS: ALB/GLOB RATIO 1.1 (1.0-1.8); ALBUMIN 3.3 gm/dL (3.7-5.3); ALKALINE PHOSPHATASE 94 U/L (34-104); ANION GAP 11.6 (7.0-16.0); BILIRUBIN,TOTAL 0.4 mg/dL (0.3-1.0); BUN - UREA NITROGEN 9 mg/dL (7-25); CALCIUM SERUM 8.8 mg/dL (8.6-10.3); CHLORIDE 105 mEq/L (98-107); CREATININE - SERUM 0.7 mg/dL (0.6-1.2); GFR AFRICAN-AMERICAN > 60.0 ml/min (>90); GFR NON AFRICAN-AMERICAN > 60.0 ml/min; GLUCOSE 101 mg/dL (70-105); MAGNESIUM 1.8 mg/dL (1.9-2.7); POTASSIUM SERUM 3.6 mEq/L (3.5-5.1); SGOT 16 U/L (13-39); SGPT/ALT 18 U/L (7-52); SODIUM SERUM 137 mEq/L (136-145); TOTAL PROTEIN,SERUM 6.3 gm/dL (6.0-8.3)
[2018-10-28] MEDS: Levothyroxine 0.088 Mg Tab PO SCH (06:45)
[2018-10-28] MEDS ORDERED: Lidocaine 2% Gel 5 mL TP ONE (08:00)
[2018-10-28] MEDS ORDERED: Propofol 10 mg/mL 20mL Vial **SURGERY USE ONLY IV ONE (08:00)
--- NOTE | 2018-10-28 08:31 | Operative Report ---
DATE OF SURGERY: 10/28/2018 PROCEDURE PERFORMED: EGD with biopsy. PREOPERATIVE DIAGNOSIS: Gastrointestinal bleed. POSTOPERATIVE DIAGNOSES: 1. Small esophageal ulcer. 2. Mild gastritis. INDICATIONS: This is a 63-year-old female with history of hypertension and dementia as well as history of peptic ulcer disease, who was admitted for generalized weakness and was noted to have dark tarry stools. The patient is fairly nonverbal and EGD was chosen for further evaluation and management. CONSENT: Informed consent was obtained from the patient's sister after explaining the risks, benefits and alternatives to the procedure, which were understood and so stated. SEDATION: Per anesthesia. EGD: While the patient was in the left lateral decubitus position, a GIF-H180 scope was introduced through the patient's mouth and advanced under direct visualization into the esophagus into the stomach and up to the second portion of the duodenum. Here, the scope was withdrawn carefully examining the color, texture, anatomy, and the mucosa. The D1 and D2 portions appeared normal. The scope was brought back to the gastric body where retroflexion was performed, which was normal. Following this, the scope was straightened forward and further attention was paid to the antrum. There was presence of a very mild gastritis that was seen in the antrum. The stomach was decompressed. The scope was brought back to the GE junction, which was present at 35 cm from the incisors. In the mid area of the esophagus, I could see a healing esophageal ulcer, did not have any active bleeding stigmata, but may have been a potential source of bleed. The scope was then drawn out and the patient tolerated this procedure well. RECOMMENDATIONS: 1. Keep on PPI b.i.d. 2. Advance to clear liquid diet and monitor for any ongoing dark stools. 3. The patient has ongoing dark tarry stools, would recommend colonoscopy this admission. Thank you for allowing us to participate in this patient's care. JOB# [id number]
[2018-10-28] MEDS: POLYETHYLENE GLYCOL 3350 17 GM PACK PO SCH (09:46)
[2018-10-28] MEDS: Pantoprazole 40 mg EC Tab PO SCH ×2 (09:47→16:43)
[2018-10-28] MEDS: Calcium Carb/Vit D 500 mg/200 U Tab PO SCH (09:47)
[2018-10-28 10:17] LABS: % BASOPHILS 0.1 % (0.0-2.0); % LYMPHOCYTES 20.5 % (20.0-50.0); % MONOCYTES 10.4 % (2.0-10.0); HEMATOCRIT 38.8 % (41.0-60); MEAN CELL VOLUME 98.8 fl (81-100); MEAN CORPUSCULAR HGB CONC 33.4 pg (28.0-36.0); PLATELET COUNT 280 Th/cmm (150-400); RED BLOOD COUNT 3.93 Mil/cmm (3.80-5.10); RED CELL DISTRIBUTION WIDTH 13.4 % (11.5-20.0); WHITE BLOOD COUNT 7.1 Th/cmm (4.8-10.8)
[2018-10-28 10:18] LABS: LYMPHOCYTE ABSOLUTE 1.5 Th/cmm (1.5-3.0); MONOCYTE ABSOLUTE 0.7 Th/cmm (0.3-1.0); NEUTROPHILE ABSOLUTE 4.9 Th/cmm (1.8-8.0)
[2018-10-28] MEDS ORDERED: Mag Sulfate 2gm/50mL Premix 2 GM/50 ML BAG IV ONE (12:40)
--- NOTE | 2018-10-28 12:41 | Internal Medicine Prog Note ---
Internal Medicine Subjective - Subjective Patient seen and examined:: with staff, chart reviewed Patient is:: awake, verbal, interactive, in bed, confused Per staff patient has:: no adverse event, no episodes of fall, poor appetite, confused, tolerating meds Internal Medicine Objective - Results Result Diagrams: 10/28/18 05:15 10/28/18 05:15 Recent Labs: Laboratory Last Values WBC 7.1 Th/cmm (4.8-10.8) 10/28/18 05:15 RBC 3.93 Mil/cmm (3.80-5.10) 10/28/18 05:15 Hgb 13.0 gm/dL (12-16) 10/28/18 05:15 Hct 38.8 % (41.0-60) L 10/28/18 05:15 MCV 98.8 fl (81-100) 10/28/18 05:15 MCH 33.0 pg (27.0-31.0) H 10/28/18 05:15 MCHC Differential 33.4 pg (28.0-36.0) 10/28/18 05:15 RDW 13.4 % (11.5-20.0) 10/28/18 05:15 Plt Count 280 Th/cmm (150-400) 10/28/18 05:15 MPV 7.8 fl 10/28/18 05:15 Neutrophils % 69.0 % (40.0-80.0) 10/28/18 05:15 Lymphocytes % 20.5 % (20.0-50.0) 10/28/18 05:15 Monocytes % 10.4 % (2.0-10.0) H 10/28/18 05:15 Eosinophils % 0.0 % (0.0-5.0) 10/28/18 05:15 Basophils % 0.1 % (0.0-2.0) 10/28/18 05:15 PT 9.8 SECONDS (9.5-11.5) 10/26/18 16:00 INR 0.94 (0.5-1.4) 10/26/18 16:00 PTT (Actin FS) 25.7 SECONDS (26.0-38.0) L 10/26/18 16:00 Sodium 137 mEq/L (136-145) 10/28/18 05:15 Potassium 3.6 mEq/L (3.5-5.1) 10/28/18 05:15 Chloride 105 mEq/L (98-107) 10/28/18 05:15 Carbon Dioxide 24.0 mEq/L (21.0-31.0) 10/28/18 05:15 Anion Gap 11.6 (7.0-16.0) 10/28/18 05:15 BUN 9 mg/dL (7-25) 10/28/18 05:15 Creatinine 0.7 mg/dL (0.6-1.2) 10/28/18 05:15 Est GFR ( Amer) > 60.0 ml/min (>90) 10/28/18 05:15 Est GFR (Non-Af Amer) > 60.0 ml/min 10/28/18 05:15 BUN/Creatinine Ratio 12.9 10/28/18 05:15 Glucose 101 mg/dL (70-105) 10/28/18 05:15 POC Glucose 105 MG/DL (70 - 105) 10/28/18 06:38 Calcium 8.8 mg/dL (8.6-10.3) 10/28/18 05:15 Magnesium 1.8 mg/dL (1.9-2.7) L 10/28/18 05:15 Total Bilirubin 0.4 mg/dL (0.3-1.0) 10/28/18 05:15 AST 16 U/L (13-39) 10/28/18 05:15 ALT 18 U/L (7-52) 10/28/18 05:15 Alkaline Phosphatase 94 U/L (34-104) 10/28/18 05:15 B-Natriuretic Peptide 38.3 pg/mL (5.0-100.0) 10/28/18 05:15 Total Protein 6.3 gm/dL (6.0-8.3) 10/28/18 05:15 Albumin 3.3 gm/dL (3.7-5.3) L 10/28/18 05:15 Globulin 3.0 gm/dL 10/28/18 05:15 Albumin/Globulin Ratio 1.1 (1.0-1.8) 10/28/18 05:15 TSH 1.67 uIU/ml (0.34-5.60) 10/28/18 05:15 Urine Source CATH 10/27/18 07:30 Urine Color YELLOW 10/27/18 07:30 Urine Clarity CLEAR (CLEAR) 10/27/18 07:30 Urine pH 7.5 (4.6 - 8.0) 10/27/18 07:30 Ur Specific [place] 1.010 (1.005-1.030) 10/27/18 07:30 Urine Protein NEGATIVE mg/dL (NEGATIVE) 10/27/18 07:30 Urine Glucose (UA) NEGATIVE mg/dL (NEGATIVE) 10/27/18 07:30 Urine Ketones NEGATIVE mg/dL (NEGATIVE) 10/27/18 07:30 Urine Blood SMALL (NEGATIVE) H 10/27/18 07:30 Urine Nitrate NEGATIVE (NEGATIVE) 10/27/18 07:30 Urine Bilirubin NEGATIVE (NEGATIVE) 10/27/18 07:30 Urine Urobilinogen 0.2 E.U./dL (0.2 - 1.0) 10/27/18 07:30 Ur Leukocyte Esterase NEGATIVE (NEGATIVE) 10/27/18 07:30 Urine RBC 2-5 /hpf (0-5) 10/27/18 07:30 Urine WBC 0-2 /hpf (0-5) 10/27/18 07:30 Ur Epithelial Cells OCCASIONAL /lpf (FEW) 10/27/18 07:30 Urine Bacteria NONE SEEN /hpf (NONE SEEN) 10/27/18 07:30 Stool Occult Blood NEGATIVE (NEGATIVE) 10/28/18 05:45 Blood Type O POSITIVE 10/26/18 16:00 Antibody Screen NEGATIVE 10/26/18 16:00 - Physical Exam Vitals and I&O: Vital Signs Temp 96.9 F 10/28/18 11:59 Pulse 60 10/28/18 11:59 Resp 19 10/28/18 11:59 BP 152/81 10/28/18 11:59 Pulse Ox 97 10/28/18 11:59 Intake & Output 10/27/18 10/28/18 10/28/18 18:59 06:59 18:59 Intake Total 1600 1400 586.667 Balance 1600 1400 586.667 Weight (lbs) 73.482 kg 73.482 kg Intake: Intake, IV Amount 1000 1000 586.667 D5-0.9%Ns 1,000 ml @ 80 1000 1000 586.667 mls/hr IV .[id number] [facility] Rx #:[id number] Oral 600 400 Other: # Voids 3 3 # Bowel Movements 1 2 Stool Characteristics Soft Soft Brown Brown Weight Source Bedscale Bedscale Active Medications: Current Medications Acetaminophen (Tylenol) 650 mg PO Q4H PRN PRN Reason: Pain Or Fever above 101 Stop: 12/25/18 19:13 Al Hydrox/Mg Hydrox/Simethicone (Maalox) 30 ml PO Q6H PRN PRN Reason: Dyspepsia Stop: 12/25/18 19:13 Albuterol Sulfate (Albuterol 2.5mg/3ml Neb Ud) 2.5 mg HHN Q2HRT PRN PRN Reason: Shortness of Breath or Wheeze Stop: 12/25/18 19:13 Calcium/Vitamin D (Oscal W/Vitamin D) 1 tab PO DAILY [facility] Stop: 12/26/18 08:59 Last Admin: 10/28/18 09:47 Dose: 1 tab Carbamazepine (Tegretol) 400 mg PO BID [facility]; Protocol Stop: 12/26/18 08:59 Last Admin: 10/28/18 09:47 Dose: 400 mg Donepezil HCl (Aricept) 10 mg PO HS [facility] Stop: 12/25/18 20:59 Last Admin: 10/27/18 20:07 Dose: 10 mg Dextrose/Sodium Chloride (D5-0.9%Ns) 1,000 mls @ 80 mls/hr IV .[id number] [facility] Stop: 12/25/18 19:14 Last Admin: 10/28/18 09:48 Dose: 80 mls/hr Magnesium Sulfate (Magnesium Sulfate Premix) 2 gm in 50 mls @ 25 mls/hr IV X1 ONE Stop: 10/28/18 14:39 Ipratropium [place] (Atrovent Neb 0.5mg/2.5ml) 0.5 mg HHN Q2HRT PRN PRN Reason: Shortness of Breath or Wheeze Stop: 12/25/18 19:13 Levothyroxine Sodium (Synthroid) 0.088 mg PO QDAC [facility] Stop: 12/26/18 07:29 Last Admin: 10/28/18 06:45 Dose: Not Given Ondansetron HCl (Zofran) 4 mg IV Q8H PRN PRN Reason: Nausea / Vomiting Stop: 12/25/18 19:13 Pantoprazole Sodium (Protonix) 40 mg PO BID [facility] Stop: 12/26/18 08:59 Last Admin: 10/28/18 09:47 Dose: 40 mg Phenytoin (Dilantin) 100 mg PO TID [facility] Stop: 12/25/18 20:59 Last Admin: 10/28/18 09:46 Dose: 100 mg Polyethylene Glycol (Miralax) 17 gm PO DAILY [facility] Stop: 12/26/18 08:59 Last Admin: 10/28/18 09:46 Dose: 17 gm Zolpidem Tartrate (Ambien) 10 mg PO HS PRN PRN Reason: Insomnia Stop: 12/25/18 19:13 General: demented HEENT: NC/AT, PERRLA, EOMI Neck: Supple, No JVD Lungs: rales Cardiovascular: RRR, Normal S1, Normal S2, without murmur Abdomen: soft, non-tender, non-distended, positive bowel sound Extremities: excoriation Neurological: no change Internal Medicine Assmt/Plan - Assessment Assessment: ASSESSMENT AND PLAN: Black tarry stool/melena/lower gastrointestinal bleeding, abdominal pain with distention, dementia, seizure disorder, psych disorder, history of peptic ulcer disease. esophageal ulcer - Plan Plan: PLAN: Continue the patient on IV hydration and proton pump inhibitor. We will monitor the patient's hemoglobin and hematocrit. We will transfuse as needed. We will check the patient's urinalysis. We will continue to monitor the patient closely.
[2018-10-28 15:16] LABS: INR 0.99 (0.5-1.4)
[2018-10-29 05:35] LABS: % BASOPHILS 0.3 % (0.0-2.0); % EOSINOPHILS 0.4 % (0.0-5.0); % LYMPHOCYTES 14.8 % (20.0-50.0); % MONOCYTES 11.4 % (2.0-10.0); % NEUTROPHILS 73.1 % (40.0-80.0); HEMATOCRIT 38.8 % (41.0-60); HEMOGLOBIN 13.1 gm/dL (12-16); LYMPHOCYTE ABSOLUTE 1.2 Th/cmm (1.5-3.0); MEAN CELL VOLUME 95.7 fl (81-100); MEAN CORPUSCULAR HEMOGLOBIN 32.4 pg (27.0-31.0); MEAN CORPUSCULAR HGB CONC 33.9 pg (28.0-36.0); MONOCYTE ABSOLUTE 0.9 Th/cmm (0.3-1.0); PLATELET COUNT 295 Th/cmm (150-400); RED BLOOD COUNT 4.05 Mil/cmm (3.80-5.10); RED CELL DISTRIBUTION WIDTH 12.8 % (11.5-20.0); WHITE BLOOD COUNT 8.1 Th/cmm (4.8-10.8)
[2018-10-29 05:47] LABS: ANION GAP 11.2 (7.0-16.0); BUN - UREA NITROGEN 10 mg/dL (7-25); CALCIUM SERUM 8.5 mg/dL (8.6-10.3); CARBON DIOXIDE 23.4 mEq/L (21.0-31.0); CHLORIDE 106 mEq/L (98-107); CREATININE - SERUM 0.7 mg/dL (0.6-1.2); GFR AFRICAN-AMERICAN > 60.0 ml/min (>90); GFR NON AFRICAN-AMERICAN > 60.0 ml/min; GLUCOSE 105 mg/dL (70-105); MAGNESIUM 2.2 mg/dL (1.9-2.7); POTASSIUM SERUM 3.6 mEq/L (3.5-5.1); SODIUM SERUM 137 mEq/L (136-145)
[2018-10-29] MEDS: Pantoprazole 40 mg EC Tab PO SCH (09:15)
[2018-10-29] MEDS: POLYETHYLENE GLYCOL 3350 17 GM PACK PO SCH (09:15)
[2018-10-29] MEDS: Calcium Carb/Vit D 500 mg/200 U Tab PO SCH (09:15)
[2018-10-29] MEDS: D5-0.9%NS 1,000 ML IV SCH (09:19)
[2018-10-29] MEDS: Levothyroxine 0.088 Mg Tab PO SCH (09:23)
--- NOTE | 2018-10-29 14:24 | GI Progress Note ---
Subjective - Review of Systems Service Date: 10/29/18 Events since last encounter: no new events GI OBJECTIVE - Results Result Diagrams: 10/29/18 05:00 10/29/18 05:00 Recent Labs: Laboratory Last Values WBC 8.1 Th/cmm (4.8-10.8) 10/29/18 05:00 RBC 4.05 Mil/cmm (3.80-5.10) 10/29/18 05:00 Hgb 13.1 gm/dL (12-16) 10/29/18 05:00 Hct 38.8 % (41.0-60) L 10/29/18 05:00 MCV 95.7 fl (81-100) 10/29/18 05:00 MCH 32.4 pg (27.0-31.0) H 10/29/18 05:00 MCHC Differential 33.9 pg (28.0-36.0) 10/29/18 05:00 RDW 12.8 % (11.5-20.0) 10/29/18 05:00 Plt Count 295 Th/cmm (150-400) 10/29/18 05:00 MPV 7.4 fl 10/29/18 05:00 Neutrophils % 73.1 % (40.0-80.0) 10/29/18 05:00 Lymphocytes % 14.8 % (20.0-50.0) L 10/29/18 05:00 Monocytes % 11.4 % (2.0-10.0) H 10/29/18 05:00 Eosinophils % 0.4 % (0.0-5.0) 10/29/18 05:00 Basophils % 0.3 % (0.0-2.0) 10/29/18 05:00 PT 10.3 SECONDS (9.5-11.5) 10/28/18 05:15 INR 0.99 (0.5-1.4) 10/28/18 05:15 PTT (Actin FS) 25.7 SECONDS (26.0-38.0) L 10/26/18 16:00 Sodium 137 mEq/L (136-145) 10/29/18 05:00 Potassium 3.6 mEq/L (3.5-5.1) 10/29/18 05:00 Chloride 106 mEq/L (98-107) 10/29/18 05:00 Carbon Dioxide 23.4 mEq/L (21.0-31.0) 10/29/18 05:00 Anion Gap 11.2 (7.0-16.0) 10/29/18 05:00 BUN 10 mg/dL (7-25) 10/29/18 05:00 Creatinine 0.7 mg/dL (0.6-1.2) 10/29/18 05:00 Est GFR ( Amer) > 60.0 ml/min (>90) 10/29/18 05:00 Est GFR (Non-Af Amer) > 60.0 ml/min 10/29/18 05:00 BUN/Creatinine Ratio 14.3 10/29/18 05:00 Glucose 105 mg/dL (70-105) 10/29/18 05:00 POC Glucose 105 MG/DL (70 - 105) 10/28/18 06:38 Calcium 8.5 mg/dL (8.6-10.3) L 10/29/18 05:00 Magnesium 2.2 mg/dL (1.9-2.7) 10/29/18 05:00 Total Bilirubin 0.4 mg/dL (0.3-1.0) 10/28/18 05:15 AST 16 U/L (13-39) 10/28/18 05:15 ALT 18 U/L (7-52) 10/28/18 05:15 Alkaline Phosphatase 94 U/L (34-104) 10/28/18 05:15 B-Natriuretic Peptide 38.3 pg/mL (5.0-100.0) 10/28/18 05:15 Total Protein 6.3 gm/dL (6.0-8.3) 10/28/18 05:15 Albumin 3.3 gm/dL (3.7-5.3) L 10/28/18 05:15 Globulin 3.0 gm/dL 10/28/18 05:15 Albumin/Globulin Ratio 1.1 (1.0-1.8) 10/28/18 05:15 TSH 1.67 uIU/ml (0.34-5.60) 10/28/18 05:15 Urine Source CATH 10/27/18 07:30 Urine Color YELLOW 10/27/18 07:30 Urine Clarity CLEAR (CLEAR) 10/27/18 07:30 Urine pH 7.5 (4.6 - 8.0) 10/27/18 07:30 Ur Specific [place] 1.010 (1.005-1.030) 10/27/18 07:30 Urine Protein NEGATIVE mg/dL (NEGATIVE) 10/27/18 07:30 Urine Glucose (UA) NEGATIVE mg/dL (NEGATIVE) 10/27/18 07:30 Urine Ketones NEGATIVE mg/dL (NEGATIVE) 10/27/18 07:30 Urine Blood SMALL (NEGATIVE) H 10/27/18 07:30 Urine Nitrate NEGATIVE (NEGATIVE) 10/27/18 07:30 Urine Bilirubin NEGATIVE (NEGATIVE) 10/27/18 07:30 Urine Urobilinogen 0.2 E.U./dL (0.2 - 1.0) 10/27/18 07:30 Ur Leukocyte Esterase NEGATIVE (NEGATIVE) 10/27/18 07:30 Urine RBC 2-5 /hpf (0-5) 10/27/18 07:30 Urine WBC 0-2 /hpf (0-5) 10/27/18 07:30 Ur Epithelial Cells OCCASIONAL /lpf (FEW) 10/27/18 07:30 Urine Bacteria NONE SEEN /hpf (NONE SEEN) 10/27/18 07:30 Stool Occult Blood NEGATIVE (NEGATIVE) 10/28/18 05:45 Helicobacter pylori Ab POSITIVE (NEGATIVE) 10/28/18 08:15 Blood Type O POSITIVE 10/26/18 16:00 Antibody Screen NEGATIVE 10/26/18 16:00 - Physical Exam Vitals and I&O: Vital Signs Temp 97.9 F 10/29/18 08:00 Pulse 68 10/29/18 08:00 Resp 18 10/29/18 08:00 BP 150/76 10/29/18 08:00 Pulse Ox 100 10/29/18 08:00 Intake & Output 10/28/18 10/29/18 10/29/18 18:59 06:59 18:59 Intake Total 1186.667 60 Balance 1186.667 60 Weight (lbs) 72.575 kg 72.575 kg Intake: Intake, IV Amount 586.667 D5-0.9%Ns 1,000 ml @ 80 586.667 mls/hr IV .[id number] [facility] Rx #:[id number] Oral 600 60 Other: # Voids 4 2 # Bowel Movements 2 Stool Characteristics Soft Soft Brown Brown Weight Source Bedscale Bedscale Active Medications: Current Medications Acetaminophen (Tylenol) 650 mg PO Q4H PRN PRN Reason: Pain Or Fever above 101 Stop: 12/25/18 19:13 Al Hydrox/Mg Hydrox/Simethicone (Maalox) 30 ml PO Q6H PRN PRN Reason: Dyspepsia Stop: 12/25/18 19:13 Albuterol Sulfate (Albuterol 2.5mg/3ml Neb Ud) 2.5 mg HHN Q2HRT PRN PRN Reason: Shortness of Breath or Wheeze Stop: 12/25/18 19:13 Calcium/Vitamin D (Oscal W/Vitamin D) 1 tab PO DAILY [facility] Stop: 12/26/18 08:59 Last Admin: 10/29/18 09:15 Dose: 1 tab Carbamazepine (Tegretol) 400 mg PO BID [facility]; Protocol Stop: 12/26/18 08:59 Last Admin: 10/29/18 09:15 Dose: 400 mg Donepezil HCl (Aricept) 10 mg PO HS CARLOS Stop: 12/25/18 20:59 Last Admin: 10/28/18 21:10 Dose: 10 mg Ipratropium [place] (Atrovent Neb 0.5mg/2.5ml) 0.5 mg HHN Q2HRT PRN PRN Reason: Shortness of Breath or Wheeze Stop: 12/25/18 19:13 Levothyroxine Sodium (Synthroid) 0.088 mg PO QDAC CARLOS Stop: 12/26/18 07:29 Last Admin: 10/29/18 09:23 Dose: 0.088 mg Ondansetron HCl (Zofran) 4 mg IV Q8H PRN PRN Reason: Nausea / Vomiting Stop: 12/25/18 19:13 Pantoprazole Sodium (Protonix) 40 mg PO BID [facility] Stop: 12/26/18 08:59 Last Admin: 10/29/18 09:15 Dose: 40 mg Phenytoin (Dilantin) 100 mg PO TID CARLOS Stop: 12/25/18 20:59 Last Admin: 10/29/18 09:15 Dose: 100 mg Polyethylene Glycol (Miralax) 17 gm PO DAILY [facility] Stop: 12/26/18 08:59 Last Admin: 10/29/18 09:15 Dose: 17 gm Zolpidem Tartrate (Ambien) 10 mg PO HS PRN PRN Reason: Insomnia Stop: 12/25/18 19:13 General: Cooperative HEENT: Atraumatic, PERRLA Neck: Supple, Thyromegaly Cardiovascular: Regular rate, Normal S1, Normal S2 Abdomen: Bowel sounds Assessment/Plan - Problem List Patient Problems: All Active Problems TARRY STOOLS (Acute) - Assessment Assessment: 1. Anemia 2. Positive H pylori -agree with triple therapy -supportive care -monitor H+H
--- NOTE | 2018-10-29 21:06 | Discharge Summary ---
DATE OF DISCHARGE: 10/29/2018 CHIEF COMPLAINT: Blood in her stool and generalized weakness. FINAL DIAGNOSES: H. pylori, melena, esophageal ulcer, abdominal pain with distension, dementia, seizures and psych disorder. HISTORY OF PRESENT ILLNESS: This is a 63-year-old female with history of hypertension, hypothyroidism, dementia and peptic ulcer disease, admitted from nursing facility secondary to not feeling well and noted to have blood in the stool. The patient admitted to telemetry. PHYSICAL EXAMINATION: VITAL SIGNS: Blood pressure 141/73, respirations 18, pulse 80, temperature 97.0. GENERAL: Elderly female, appears her stated age. NECK: Supple. No mass. LUNGS: Equal breath sounds, few rhonchi. HEART: Regular rate and rhythm. Systolic ejection murmur. ABDOMEN: Soft, globular. EXTREMITIES: Positive excoriation. HOSPITAL COURSE: The patient was admitted to medical floor, continue oxygen, bronchodilator treatment ___ with her hemoglobin has remained stable. The patient was seen by Dr. López for GI, had an upper endoscopy showed peptic ulcer, H. pylori ____ came back positive. The patient cleared for discharge. CONDITION ON DISCHARGE: Fair. DISCHARGE INSTRUCTIONS: The patient is to continue with current care. GI to follow the patient is obese. [facility]# [id number]
== END 2018-10-29 16:37 | DRG 381 ==
LOC: ER 15:05 → MSI 19:05
PROVIDERS: ADMIT Internal Medicine; ATTEND Internal Medicine
PROC: 0DB68ZX Excision of Stomach, Via Natural or Artificial Opening Endoscopic, Diagnostic (ICD-10-PCS; principal; 2018-10-28)
DX: K22.11 Ulcer of esophagus with bleeding (principal); E44.0 Moderate protein-calorie malnutrition; K27.9 Peptic ulcer, site unspecified, unspecified as acute or chronic, without hemorrhage or perforation; K92.1 Melena; F03.90 Unspecified dementia, unspecified severity, without behavioral disturbance, psychotic disturbance, mood disturbance, and anxiety; I10 Essential (primary) hypertension; G40.909 Epilepsy, unspecified, not intractable, without status epilepticus; K29.71 Gastritis, unspecified, with bleeding; E03.9 Hypothyroidism, unspecified; D64.9 Anemia, unspecified; B96.81 Helicobacter pylori [H. pylori] as the cause of diseases classified elsewhere; Z88.5 Allergy status to narcotic agent; Z88.8 Allergy status to other drugs, medicaments and biological substances; Z87.11 Personal history of peptic ulcer disease; Z68.31 Body mass index [BMI] 31.0-31.9, adult
CPT/HCPCS: 36415-UA; 76700-TC; 80048-TC; 80053-TC; 81001-TC; 82270-TC; 82948-90; 83735-TC; 83880-TC; 84443-TC; 85025-TC; 85610-TC; 86850-TC; 86900-TC; 86901-TC; 87338-TC; 94760; 96374; J2704; J3475; J3490; J7042; Z7610